=== PATIENT | female | born 1985 | race Caucasian/White ===

== ENCOUNTER → 2019-12-24 09:33 | Outpatient (CLI) | payer OTHER, SELFPAY ==
--- NOTE | 2019-12-24 09:40 | XR_ITS ---
PROCEDURE: XR ELBOW RT MIN 3V CLINICAL INDICATION: ganglion cyst right elbow COMPARISON: No exams were available for comparison FINDINGS: No fracture or dislocation. No lytic or blastic change. There is normal mineralization. The joint spaces are well-preserved. No significant degenerative/arthritic changes. No erosive changes evident. Other findings:There is a small round ossification adjacent to the tip of the olecranon process near the insertion of the triceps tendon measuring approximately 7 8 mm in diameter. The supracondylar humerus appears normal. The olecranon fossa is grossly normal and the radial head is intact. IMPRESSION: Round ossification or calcification adjacent to the olecranon process of the ulna possibly posttraumatic or possibly secondary to a calcified ganglion cyst, otherwise essentially unremarkable right elbow Dictated by: Dr. Zach Torres MD 12/24/2019 09:[address] Zach Torres MD in [place] 12/24/2019 09:56
== END ==
PROVIDERS: PCP Physician Assistant; Visit Provider Physician Assistant
DX: M67.421 Ganglion, right elbow (principal)
CPT/HCPCS: 73080

== ENCOUNTER → 2020-01-13 14:09 | Outpatient (CLI) | payer OTHER, SELFPAY ==
[2020-01-13 18:47] LABS: Coronavirus 19 IgG Antibody Negative (Negative); Coronavirus 19 IgM Antibody Negative (Negative)
== END ==
PROVIDERS: Visit Provider Orthopaedic Surgery
DX: Z01.818 Encounter for other preprocedural examination (principal); R22.31 Localized swelling, mass and lump, right upper limb
CPT/HCPCS: 36415; 86328

== ENCOUNTER 2020-01-14 11:53 | Day surgery (SDC) | payer OTHER, SELFPAY ==
[2020-01-13 15:24] VITALS: BMI 28.8
[2020-01-14 12:10] VITALS: BP 110/63; PULSE 84; RESP 18; TEMP 36.4; O2SAT 98
--- NOTE | 2020-01-14 12:43 | HMH.ANESCL ---
[facility] Anesthesia Checklist - Patient Identification Patient Identification: Arm Band - Structural Data Admitted From: Home Planned Operative Procedure/s: excision of mass right elbow Consent for Planned Operative Procedure(s) Verified: Yes Verified Documents: Surgical Consent, History and Physical - NPO Status Verified Time NPO: 00:00 - Additional verifications Anesthesia Reactions: No Hx Blood Transfusions: No Blood Transfusion Reaction: No - Airway Assessment C-Spine Mobility Assessed: Yes (mp2) TMJ Mobility Assessed: Yes Dentition: Good Dentition - Neurological Assessment Level of Consciousness: Awake, Alert - Anesthesia Plan Anesthesia Risk discussed: Yes Anesthesia Plan: Verified ASA Class: II Anesthesia Type: MAC [facility] History I have reviewed the patient's past medical history: Yes Medical History: Reports:: Anxiety, Depression, Gastroesophageal Reflux Disease(GERD), Migraine Denies:: Cancer, Diabetes Mellitus Type 1, Diabetes Mellitus Type 2, Internal Pacemaker, MRSA, Seizures *Have you ever received a pneumonia vaccine?: No *Have you received a flu vaccine this season?: Yes Other Medical History: Reports: Other. Denies: Blood Transfusion Reaction Anesthesia experience/problems:: nac Other Surgeries: Yes: Cholecystectomy, Dilation and Curettage, Hysterectomy-Total. No: Pacemaker Amputation: No Fractures: Yes (ARM) - *Social History Educational Level: Completed High School Smoking Status: Current every day smoker Tobacco Type: cigarettes # Packs/Day (cigarettes): 1 Alcohol Intake: never Alcohol Intake Frequency:: other Substance Use Type: denies use *Occupational Status:: employed Housing: house Household Members: spouse, children *Travel in the last 8 weeks: None - Psychiatric History Pschychiatric History:: Reports:: Anxiety, Depression Family Hx:: No significant family history
[2020-01-14 15:04] VITALS: BP 95/58; PULSE 75; RESP 18; TEMP 36.5; O2SAT 95
[2020-01-14 15:19] VITALS: BP 110/65; PULSE 85; RESP 18; O2SAT 100
[2020-01-14 15:34] VITALS: BP 100/65; PULSE 75; RESP 18; O2SAT 100
[2020-01-14 15:48] VITALS: BP 104/56; PULSE 83; RESP 18; O2SAT 100
--- NOTE | 2020-01-15 12:48 | HMH.OPNOTE ---
Date of procedure: 01/14/20 Pre-op Diagnosis:: R elbow mass Post-op Diagnosis:: R elbow mass Procedure performed:: excision of R elbow mass Surgeon:: Kinga Lindsay MD Communicable Disease Specialist(s):: Nory Soto PRODUCTION MATERIAL HANDLER:: Rik Fortune Anesthesia: MAC (6cc local at incision site), local Estimated blood loss (mL): 2 Clinical Note:: 34 year-old right hand dominant female with a chief complaint of a painful mass over the right elbow. She fractured this elbow when she was 8 years old and recalls being treated first with a closed reduction, followed by pinning of the fracture. She went on to heal the fracture and denies any issues with the elbow since. Around 5-6 weeks ago she bumped that elbow on something, which was painful. When she looked closely at the elbow she noticed a mass she hadn't seen before over the lateral aspect of the elbow. Whether hitting the elbow caused the mass or simply called her attention to it for the first time is unknown. The mass is small but firm, located over the posterolateral aspect of the elbow, adjacent to a scar from her previous elbow fracture surgery; it is superficial. She denies redness or warmth around the mass, no drainage from that site. No numbness or tingling in the RUE. She denies any baseline medical issues other than GERD, which is controlled with lansoprazole. NSAIDs have caused stomach pain/bleeding so she tries to avoid them. She is a smoker, BMI 28. I attempted to aspirate the cyst in clinic using sterile technique and a sterile 22G needle; the mass was firm and unable to be penetrated. I discussed further treatment options with the patient, who vocalized a desire to have the mass removed. It is painful and she frequently bumps it on things. The mass is very superficial and there are no neurologic symptoms indicating nerve involvement. I discussed the risks of surgical excision of the mass with the patient, including bleeding, infection, neurovascular damage, risk of mass reoccurrence, persistent pain despite mass excision, and risk of further treatment necessary should the mass wood turner to be malignant. I plan on sending the mass for pathology to confirm its origin. The patient vocalized understanding of the above risks and provided informed consent for the procedure. Operative findings:: mass ~3mm in diameter, superficial in location firm, calcified-appearing gross appearance consistent with calcified ganglion cyst; sent for path Operative note:: The patient was identified in pre-operative holding and the right elbow marked by myself. Consent was reviewed by myself and all questions answered. She was then taken to the OR and placed supine on the OR table with the right arm on a hand table. 900mg clindamycin were infused and IV sedation given by anesthesia. SCDs were placed on bilateral lower extremities. Timeout was performed, identifying the correct patient, correct procedure, and correct site. Local anesthesia was administered at the surgical site; the mass was located over the posterolateral elbow and local infiltrated subcutaneously around the mass. This was a 50/50 mix of 0.5% marcaine and 1% lidocaine, both without epinephrine; 6cc was used. The right elbow was then prepped and draped in the usual sterile fashion. The mass was located at the site of her prior pin placement for her elbow fracture as a child. Her previous scar was used, and a small incision made over the posterior lateral aspect of the elbow, approximately 1 cm in length, using her prior incision. Once incision was made, tenotomy scissors were used to bluntly spread the skin and the superficial subcutaneous tissue. The mass was encountered immediately superficial to the skin. Using blunt spreading with tenotomy scissors, the mass was dissected free of the surrounding subcutaneous tissue and removed in its entirety. It was around 3 mm in diameter and very firm, with a gross appearance of a calcified ganglion cyst. No other masses were palpated in this gita
== END 2020-01-14 15:48 | disposition home or self-care (01) ==
LOC: OR 11:54
PROVIDERS: PCP Physician Assistant; Visit Provider Orthopaedic Surgery
PROC: (CPT 11400; principal; 2020-01-14 13:30)
DX: R22.31 Localized swelling, mass and lump, right upper limb (principal); M25.521 Pain in right elbow
CPT/HCPCS: 11400; 96374

== ENCOUNTER 2020-06-14 17:39 | Observation (INO) | payer OTHER, SELFPAY ==
[2020-06-14] VITALS (9 sets, daily range): BP systolic 102–120; BP diastolic 55–76; PULSE 64–84; RESP 16–18; TEMP 36.1–37.1; O2SAT 95–99; BMI 28.8; BMI 28.1
--- NOTE | 2020-06-14 17:56 | CT_ITS ---
PROCEDURE: CT ABDOMEN PELVIS W CON CLINICAL INDICATION: abd pain Acute abdominal pain with diarrhea and vomiting and nausea COMPARISON: CT ABDPELW/O CT ABD PELVIS W/O CONTRAST from 10/06/2012 TECHNIQUE: IV Contrast: 75ML Isovue 370 Oral Contrast None Axial images obtained with sagittal and coronal reformats. All CT scans at the facility use one or more dose reduction, viz: automated exposure control, ma/kV adjustment per patient size (including targeted exams where dose is matched to indication, i.e. head), or iterative reconstruction technique. FINDINGS: LOWER THORAX: No acute finding ABDOMEN & PELVIS: Prior cholecystectomy. The liver, spleen, adrenal glands, pancreas, and kidneys have an unremarkable appearance. There is diffuse dey colonic thickening. Small bowel gas pattern is nonspecific with some fluid-filled nondistended loops of small bowel. No free air is evident. No pneumatosis apparent. No evidence of appendicitis. No pelvic mass or abnormal fluid collection. There are post hysterectomy changes. Degenerative changes are present in the lower thoracic spine with mild kyphosis of T10 and T11. There is anterior angulation of the coccyx. IMPRESSION: Diffuse large bowel wall thickening throughout consistent with colitis and may be related to pseudomembranous colitis. Dictated by: Landon Antonio MD 06/15/2020 05:57 Landon Antonio MD in [place] 06/15/2020 05:57
--- NOTE | 2020-06-14 18:02 | HMH.EDGENADL ---
ED Disposition Clinical Impression: Pseudomembranous colitis Disposition: Admitted as Observation Condition on Discharge: Fair Referrals: Larry Anderson MD [Primary Care Provider] - - Critical Care Critical Care Time: No Attestation: On 06/14/20, the high probability of a clinically significant, sudden or life threatening deterioration of the following system(s) required my full and direct attention, intervention and personal management. The time I documented below is in addition to time spent performing reported procedures but includes the following listed in this critical care notation. Medical Decision Making - Medical Records Medical records reviewed: Yes: I reviewed the patient's medical records. - [place] Inquiry Pt receiving controlled substance: Yes [place] was queried for this patient: Yes Reference #:: [id number] Risks and benefits of using a controlled substance: were not discussed with pt by me Comment: 2 rxs. last rx 20 norco on 01/14/20 Vital Signs: 06/14/20 17:52 06/14/20 20:05 Temperature 98.8 F Temperature Source Oral Pulse Rate [Right Radial] 84 71 Respiratory Rate 17 18 Blood Pressure [Right Arm] 114/70 102/55 L Blood Pressure Mean [Right Arm] 84 70 02 Sat by Pulse Oximetry 99 95 Oxygen Delivery Method Room Air - Lab Data Lab results reviewed: Yes: I reviewed the patient's lab results. Lab Results 06/14/20 18:00: Urine Color Yellow, Urine Appearance Clear, Urine pH 5.5, Ur Specific [place] 1.025, Urine Protein Negative, Urine Glucose (UA) Negative, Urine Ketones Negative, Urine Blood 3+, Urine Nitrate Negative, Urine Bilirubin Negative, Urine Urobilinogen 0.2, Ur Leukocyte Esterase Negative, Urine RBC 5-10 06/14/20 18:00: WBC 14.2 H, RBC 4.98, Hgb 15.3, Hct 46.0, MCV 92.3, MCH 30.8, MCHC 33.3, RDW 13.7, Plt Count 263, MPV 6.8 L, Neut % (Auto) 84.3 H, Lymph % (Auto) 10.6, [place] % (Auto) 3.6, Eos % (Auto) 1.3, Baso % (Auto) 0.3, Neut # (Auto) 12.0 H, Lymph # (Auto) 1.5, [place] # (Auto) 0.5, Eos # (Auto) 0.2, Baso # (Auto) 0.0 06/14/20 18:00: Sodium 137, Potassium 3.3 L, Chloride 106, Carbon Dioxide 23, Anion Gap 11.3, BUN 5 L, Creatinine 0.60, Estimated Creat Clear 174, Estimated GFR 114, Est GFR ( Amer) 138, Glucose 101 H, Calcium 8.9, Total Bilirubin 0.4, AST 21, ALT 14, Alkaline Phosphatase 64, Total Protein 6.7, Albumin 4.0, Globulin 2.7, Albumin/Globulin Ratio 1.5, Amylase 51, Lipase 26 06/14/20 19:10: Lactate 0.7 Result diagrams: 06/14/20 18:00 06/14/20 18:00 Orders (Tests/Meds): ED MEDICATIONS Generic Name Dose Route Start Last Admin Trade Name Freq PRN Reason Stop Dose Admin Vancomycin HCl 125 mg 06/14/20 21:00 Vancomycin 500mg Vial PO 06/28/20 20:59 QID CHERYL Protocol Discontinued Medications Generic Name Dose Route Start Last Admin Trade Name Freq PRN Reason Stop Dose Admin Ioversol 75 ml 06/14/20 18:17 06/14/20 18:18 Ioversol-350 (74%) 100ml Vial IV 06/14/20 18:18 75 ml ONCE ONE Administration Protocol Morphine Sulfate 4 mg 06/14/20 19:04 06/14/20 19:10 Morphine 4mg/Ml Syringe IV 06/14/20 19:05 4 mg ONCE ONE Administration Ondansetron HCl 4 mg 06/14/20 19:04 06/14/20 19:11 Ondansetron 4mg/5ml Alicia Udc PO 06/14/20 19:05 Not Given ONCE ONE Ondansetron HCl 4 mg 06/14/20 19:11 06/14/20 19:11 Ondansetron 4mg/2ml Vial IV 06/14/20 19:12 4 mg ONCE ONE Administration Sodium Chloride 10 ml 06/14/20 18:17 06/14/20 18:18 Sodium Chloride 0.9% 10ml Syr (Rad Only) IV 06/14/20 18:18 10 ml ONCE ONE Administration Sodium Chloride 1,000 ml 06/14/20 19:04 06/14/20 19:10 Sodium Chloride 0.9% 1000ml Bag IV 06/14/20 19:05 1,000 ml BOLUS ONE Administration ORDERS Category Date Time Status CT abdomen pelvis w con Stat Cat Scan 06/14/20 17:56 Taken C-Reactive Protein Stat Lab 06/14/20 20:08 Ordered Diarrhea 6-11 Panel, Cdiff PCR Stat Lab 06/14/20 19:10 Received ESR [Erythrocyte
[2020-06-14 18:07] LABS: Microscopic, Urine URINE MICROSCOPIC (MICROSCOPIC)
[2020-06-14 18:09] LABS: Appearance,Urine CLEAR (Clear); Basophils % 0.3 % (0.1-2.0); Bilirubin,Urine Negative (Negative); Blood, Urine 3+ (Negative); Color,Urine YELLOW (Yellow); Eosinophils # 0.2 K/mm3 (0.0-0.4); Eosinophils % 1.3 % (0.1-12.0); Glucose,Urine (UA) Negative (Negative); Hemoglobin 15.3 g/dL (12.2-16.2); Ketones,Urine Negative (Negative); Leukocyte Esterase,Urine Negative (Negative); Lymphocytes # 1.5 K/mm3 (0.7-4.5); Lymphocytes % 10.6 % (10-50); Mean Corpuscular HGB Conc 33.3 g/dL (31.8-35.4); Mean Corpuscular Hemoglobin 30.8 pg (27.0-31.2); Mean Corpuscular Volume 92.3 fl (81-99); Mean Platelet Volume 6.8 fl (7.4-10.4); Monocytes # 0.5 K/mm3 (0.1-1.0); Monocytes % 3.6 % (1.7-9.3); Neutrophils % 84.3 % (37.0-80.0); Nitrate,Urine Negative (Negative); PH,Urine 5.5 (5.0-8.5); Platelet Count 263 K/mm3 (142-424); Protein,Urine Negative (Negative); Red Blood Count 4.98 M/mm3 (4.20-5.40); Red Cell Distribution Width 13.7 % (11.5-17.5); Specific Gravity, Urine 1.025 (1.005-1.030); Urobilinogen,Urine 0.2 EU/dl (0.2); White Blood Count 14.2 K/mm3 (4.8-10.8)
[2020-06-14 18:18] LABS: Alanine Aminotransferase 14 U/L (12-78); Albumin/Globulin Ratio 1.5 (1.1-1.8); Alkaline Phosphatase 64 U/L (38-126); Amylase 51 U/L (30-110); Anion Gap 11.3 mEq/L (5-15); Aspartate Amino Transferase 21 U/L (14-36); Bilirubin,Total 0.4 mg/dl (0.2-1.3); Blood Urea Nitrogen 5 mg/dl (7-17); Calcium 8.9 mg/dl (8.4-10.2); Carbon Dioxide 23 mmol/L (22.0-30.0); Chloride 106 mmol/L (98-107); Creatinine Clearance Estimated 174 mL/min (50-200); Estimated Glomerular Filt Rate 114 ml/min (>60); GFR (African American) 138 ML/MIN (>60); Globulin 2.7 g/dL (1.3-3.2); Glucose 101 mg/dl (74-100); Lipase 26 U/L (23-300); Potassium 3.3 mmoL/L (3.5-5.1); Sodium 137 mmol/L (136-145); Total Protein,Serum 6.7 g/dl (6.3-8.2)
--- NOTE | 2020-06-14 19:19 | PC.NURSE ---
informed md we do not have access to the oral vanc on the floor.
[2020-06-14 19:21] LABS: Adenovirus F 40/41, stool Not Detected (NotDetected); Astrovirus Not Detected (NotDetected); Cryptosporidium Not Detected (NotDetected); Cyclospora Cayetanesis Not Detected (NotDetected); Entamoeba histolytica Not Detected (NotDetected); Enteroaggregative E coli Not Detected (NotDetected); Enteropathogenic E coli Not Detected (NotDetected); Enterotoxigenic E coli Not Detected (NotDetected); Giardia lamblia Not Detected (NotDetected); Norovirus Not Detected (NotDetected); Plesimonas Shigalloides, PCR Not Detected (NotDetected); Rotavirus A Not Detected (NotDetected); Salmonella, PCR Not Detected (NotDetected); Sapovirus Not Detected (NotDetected); Shiga-like toxin E coli Not Detected (NotDetected); Shigella Enterovasive E coli Not Detected (NotDetected); Vibrio Cholerae Not Detected (NotDetected); Vibrio, PCR Not Detected (NotDetected); Yersinia Entercolitica, PCR Not Detected (NotDetected)
[2020-06-14 19:23] LABS: Lactic Acid 0.7 mmol/L (0.7-2.1)
--- NOTE | 2020-06-14 20:56 | HMH.HP ---
*Admission Date: 06/14/20 *Chief complaint: abd pain *History of present illness: this pt with severe crampy abd pain alfonso diarrhea for 4 days with colicky abdominal pain. One episode of vomiting today. No fever noted. She has some blood in her diarrhea, but says blood in her stool is not unusual for her because she has hemorrhoids and the amount of bleeding that she is having is about typical for her. No recent travel, antibiotics, exposures to diarrhea illnesses. 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 pt will be admitted for eval and treatment [facility] History I have reviewed the patient's past medical history: Yes Medical History: Reports:: Anxiety, Depression, Gastroesophageal Reflux Disease(GERD), Migraine Denies:: Cancer, Diabetes Mellitus Type 1, Diabetes Mellitus Type 2, Internal Pacemaker, MRSA, Seizures *Have you ever received a pneumonia vaccine?: No *Have you received a flu vaccine this season?: No Other Medical History: Reports: Other. Denies: Blood Transfusion Reaction Other Surgeries: Yes: Cholecystectomy, Dilation and Curettage, Hysterectomy-Total. No: Pacemaker Amputation: No Fractures: Yes (ARM) - *Social History Smoking Status: Current every day smoker Tobacco Type: cigarettes # Packs/Day (cigarettes): 1 Alcohol Intake: never Alcohol Intake Frequency:: other Substance Use Type: marijuana *Occupational Status:: employed Housing: house Household Members: spouse, children *Travel in the last 8 weeks: None - Psychiatric History Pschychiatric History:: Reports:: Anxiety, Depression Family Hx:: No significant family history Review of Systems - Review of Systems Review of systems:: pertinent systems reviewed and negative unless documented below - Constitutional Denies fever(s) - Eyes Denies change in vision - ENT Denies sore throat - *Cardiovascular Denies chest pain - *Respiratory Denies cough - *Gastrointestinal Reports abdominal pain, Reports cramping, Reports loose stools, Denies black, tarry stools, Denies vomiting - *Genitourinary Denies blood in urine - *Musculoskeletal Denies joint pain - Integumentary/Breasts Denies rash - *Neurologic Denies localized weakness, Denies seizure-like activity - Psychiatric Denies anxiety Meds Home Medications Medication Instructions Recorded Confirmed Type lansoprazole 30 mg capsule,delayed 30 mg PO DAILY #90 cap 03/31/20 06/14/20 Rx release Allergies Allergy/AdvReac Type Severity Reaction Status Date / Time ibuprofen [IBUPROFEN] Allergy Unknown STOMACH Verified 06/14/20 17:56 UPSET naproxen [NAPROXEN] Allergy Unknown STOMACH Verified 06/14/20 17:56 UPSET ADHESIVES Allergy Unknown I-RASH Uncoded 05/28/20 13:26 Exam Vital signs and Labs for Last 24 Hours: Temp Pulse Resp BP Pulse Ox 98.8 F 71 18 102/55 L 95 06/14/20 17:52 06/14/20 20:05 06/14/20 20:05 06/14/20 20:05 06/14/20 20:05 Laboratory Results - last 24 hr 06/14/20 18:00: Urine Color Yellow, Urine Appearance Clear, Urine pH 5.5, Ur Specific [place] 1.025, Urine Protein Negative, Urine Glucose (UA) Negative, Urine Ketones Negative, Urine Blood 3+, Urine Nitrate Negative, Urine Bilirubin Negative, Urine Urobilinogen 0.2, Ur Leukocyte Esterase Negative, Urine RBC 5-10 06/14/20 18:00: WBC 14.2 H, RBC 4.98, Hgb 15.3, Hct 46.0, MCV 92.3, MCH 30.8, MCHC 33.3, RDW 13.7, Plt Count 263, MPV 6.8 L, Neut % (Auto) 84.3 H, Lymph % (Auto) 10.6, [place] % (Auto) 3.6, Eos % (Auto) 1.3, Baso % (Auto) 0.3, Neut # (Auto) 12.0 H, Lymph # (Auto) 1.5, [place] # (Auto) 0.5, Eos # (Auto) 0.2, Baso # (Auto) 0.0 06/14/20 18:00: Sodium 137, Potassium 3.3 L, Chloride 106, Carbon Dioxide 23, Anion Gap 11.3, BUN 5 L, Creatinine 0.60, Estimated Creat Clear 174, Estimated GFR 114, Est GFR ( Amer) 138, Glucose 101 H, Calcium 8.9, Total Bilirubin 0.4, AST 21, ALT 14, Alkaline Phosphatase 64, T
[2020-06-14 21:03] LABS: C-Reactive Protein 19.9 mg/L (0-4)
[2020-06-14 21:11] LABS: Erythrocyte Sedimentation Rate 17 mm/hr (0-20)
[2020-06-14 21:17] LABS: Procalcitonin 0.042 ng/mL (0.0-2.0)
--- NOTE | 2020-06-14 21:17 | PC.NURSE ---
checking on covid igg/igm; earl reports additonal 7-8 mins
[2020-06-14 21:26] LABS: Coronavirus 19 IgG Antibody Negative (Negative); Coronavirus 19 IgM Antibody Negative (Negative)
--- NOTE | 2020-06-14 21:53 | PC.NURSE ---
PT ARRIVED TO THE FLOOR VIA W/C FROM ED W/STAFF AT [id number]
[2020-06-15 03:05] VITALS: BP 103/56; PULSE 53; RESP 16; TEMP 36.8; O2SAT 97
--- NOTE | 2020-06-15 05:46 | PC.NURSE ---
Pt a&OX4 lungs cta. pt c/o abd pain medicated per OCT. pt ambulates to BR independently
--- NOTE | 2020-06-15 07:23 | PC.NURSE ---
notified pre op of Dr. Gonzales consult.
--- NOTE | 2020-06-15 07:30 | HMH.PHAVTE ---
[facility] Pharmacy VTE Monitoring - Patient Demographics Admission date: 06/14/20 Report Date: 06/15/20 Time: 07:31 Allergies/Adverse Reactions: Patient Allergies ibuprofen [IBUPROFEN] Allergy (Unknown, Verified 06/14/20 17:56) STOMACH UPSET naproxen [NAPROXEN] Allergy (Unknown, Verified 06/14/20 17:56) STOMACH UPSET ADHESIVES Allergy (Unknown, Uncoded 05/28/20 13:26) I-RASH Height: 1.7 m Weight: 81.647 kg Patient Problems: Current Active Problems Pseudomembranous colitis (Acute) Overweight (BMI 25.0-29.9) (Acute) Tobacco use (Acute) - VTE Risk Labs: VTE Related Lab Results Hgb 15.3 g/dL (12.2-16.2) 06/14/20 18:00 Hct 46.0 % (37.0-47.0) 06/14/20 18:00 Plt Count 263 K/mm3 (142-424) 06/14/20 18:00 BUN 5 mg/dl (7-17) L 06/14/20 18:00 Creatinine 0.60 mg/dl (0.52-1.04) 06/14/20 18:00 Estimated Creat Clear 174 mL/min (50-200) 06/14/20 18:00 Was VTE Risk Assessment Performed: Yes VTE Score: 0 VTE Risk Level: Very Low Risk - Prophylaxis VTE Prophylaxis Ordered?: Yes Types of VTE Prophylaxis: TEDS Knee High Location of Applied Device: Bilateral Lower Extremeties
[2020-06-15 07:42] VITALS: BP 111/68; PULSE 54; RESP 20; TEMP 36.8; O2SAT 96
[2020-06-15 08:00] VITALS: PULSE 54; RESP 20; O2SAT 96
--- NOTE | 2020-06-15 08:24 | HMH.PHAINT ---
MEDICATION RECONCILIATION COMPLETED ON PATIENT USING EXTERNAL FILL HISTORY FROM PHARMACY. -NORBERTO GARCIA, LUIS MD
[2020-06-15 15:41] VITALS: BP 133/71; PULSE 60; RESP 18; TEMP 36.7; O2SAT 99
--- NOTE | 2020-06-15 16:05 | HMH.CONS ---
*Admission Date: 06/14/20 *Reason for consult:: colitis *History of present illness: This is a 34-year-old female who presented to the ER after 5 days of diarrhea and 3 days of abdominal pain with nausea x1 day. She reports that yesterday she had 11 episodes of watery mushy stool throughout the day. Upon arrival in the ER her white blood cell count was elevated at 14.2 with a normal amylase lipase and normal LFTs. She did have an elevated CRP at 19.9. CT scan showed diffuse large bowel wall thickening throughout consistent with colitis likely pseudomembranous colitis. Patient was started on Flagyl, p.o. vancomycin, and IV fluids in the ER. At the time of this consult we are still awaiting results of stool panel and C. difficile results. The patient denies having any antibiotics in the past 6 months. She denies any history of immune compromise. 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 She does have some rectal bleeding but she reports that she has rectal bleeding every day with an history of internal hemorrhoids and the consistency color and quantity have not changed. She denies any alcohol or NSAID use. Her last colonoscopy was for rectal bleeding about 8 years ago along with an EGD at [facility]. She denies any abnormalities but for trouble with her lower esophageal sphincter of unknown etiology. Patient denies any family history of colon cancer, stomach cancer or other GI cancers. She denies any history of inflammatory bowel disease or celiac disease in her family. Patient is mildly tender to palpation right lower quadrant today. She reports it was left lower quadrant yesterday. She is afebrile and reports some nausea but one episode of vomiting. She reports she has had no p.o. intake for about 48 hours due to her symptoms. [facility] History I have reviewed the patient's past medical history: Yes Medical History: Reports:: Anxiety, Depression, Gastroesophageal Reflux Disease(GERD), Migraine Denies:: Cancer, Diabetes Mellitus Type 1, Diabetes Mellitus Type 2, Internal Pacemaker, MRSA, Seizures *Have you ever received a pneumonia vaccine?: No *Have you received a flu vaccine this season?: No Other Medical History: Reports: Other. Denies: Blood Transfusion Reaction Other Surgeries: Yes: Cholecystectomy, Dilation and Curettage, Diagnostic Lap, Hysterectomy-Total, Hysterectomy-Partial. No: Pacemaker Amputation: No Fractures: Yes (ARM) - *Social History Last grade of school completed: High school graduate Smoking Status: Current every day smoker Tobacco Type: cigarettes # Packs/Day (cigarettes): 1 Alcohol Intake: never Alcohol Intake Frequency:: other Substance Use Type: marijuana *Occupational Status:: employed Housing: house Household Members: spouse *Travel in the last 8 weeks: None - Psychiatric History Pschychiatric History:: Reports:: Anxiety, Depression Family Hx:: Diabetes, Heart Attack, Hyperlipidemia, Hypertension Review of Systems - Constitutional Reports anorexia, Denies body ache(s), Denies chills, Denies fever(s), Denies weakness - Eyes Denies blurry vision, Denies change in vision - ENT Denies dry mouth, Denies difficulty swallowing, Denies headache(s), Denies hoarseness, Denies pain with swallowing, Denies throat swelling - *Cardiovascular Denies chest pain, Denies shortness of breath, Denies generalized swelling - *Respiratory Denies chest congestion, Denies cough, Denies shortness of breath, Denies stridor, Denies wheezing - *Gastrointestinal Reports abdominal pain, Reports change in bowel habits, Reports loose stools, Reports bright, red blood in stools, Reports nausea, Reports vomiting, Denies belching, Denies bloating, Denies coffee ground vomit, Denies constipation, Denies difficulty swallowing, Denies incontinent of stools - *Musculoskeletal Denies joint pain, Denies back pain, Denies muscle weakness, Denies numbness, Denies tinglin
--- NOTE | 2020-06-15 17:13 | PC.NURSE ---
Pt has been pleasant and cooperative this shift. A&O X4. Pt has complained of pain X2 and has been medicated with Morphine per MAR. Lungs CTA. Pt is on room air with sats. >90%. No edema noted. Skin is C/D/I. Pt ambulates to/from the bathroom and throughout the room independently. No nausea/vomiting this shift. Pt is currently receiving full liquids and is tolerating well thus far. Pt uses the toilet to void clear, yellow urine without issue. Pt reports 2 small episodes of loose, brown stool. Awaiting diarrhea panel results. 20 G peripheral IV in the LT wrist DC'd this shift due to infiltration. 20 G peripheral IV in the RT AC is patent and infusing NS @ 100 ML/HR. VSS. Call light within reach. Will continue to monitor.
--- NOTE | 2020-06-15 17:23 | HMH.ACPN2 ---
Internal Medicine - PN: Subj *Date: 06/15/20 *Time: 08:10 Interval history: pt sitting up in bed states slight better but still having pain Exam Vital signs and Labs for Last 24 Hours: Temp Pulse Resp BP Pulse Ox 98.1 F 60 18 133/71 99 06/15/20 15:41 06/15/20 15:41 06/15/20 15:41 06/15/20 15:41 06/15/20 15:41 Laboratory Results - last 24 hr 06/14/20 18:00: Urine Color Yellow, Urine Appearance Clear, Urine pH 5.5, Ur Specific [place] 1.025, Urine Protein Negative, Urine Glucose (UA) Negative, Urine Ketones Negative, Urine Blood 3+, Urine Nitrate Negative, Urine Bilirubin Negative, Urine Urobilinogen 0.2, Ur Leukocyte Esterase Negative, Urine RBC 5-10 06/14/20 18:00: WBC 14.2 H, RBC 4.98, Hgb 15.3, Hct 46.0, MCV 92.3, MCH 30.8, MCHC 33.3, RDW 13.7, Plt Count 263, MPV 6.8 L, Neut % (Auto) 84.3 H, Lymph % (Auto) 10.6, [place] % (Auto) 3.6, Eos % (Auto) 1.3, Baso % (Auto) 0.3, Neut # (Auto) 12.0 H, Lymph # (Auto) 1.5, [place] # (Auto) 0.5, Eos # (Auto) 0.2, Baso # (Auto) 0.0 06/14/20 18:00: Sodium 137, Potassium 3.3 L, Chloride 106, Carbon Dioxide 23, Anion Gap 11.3, BUN 5 L, Creatinine 0.60, Estimated Creat Clear 174, Estimated GFR 114, Est GFR ( Amer) 138, Glucose 101 H, Calcium 8.9, Total Bilirubin 0.4, AST 21, ALT 14, Alkaline Phosphatase 64, Total Protein 6.7, Albumin 4.0, Globulin 2.7, Albumin/Globulin Ratio 1.5, Amylase 51, Lipase 26 06/14/20 18:00: ESR 17 06/14/20 18:00: C-Reactive Protein 19.9 H 06/14/20 18:00: Procalcitonin 0.042 06/14/20 18:00: SARS-CoV-2 IgG Ab (Rapid) Negative, SARS-CoV-2 IgM Ab (Rapid) Negative 06/14/20 19:10: Lactate 0.7 I & O for Last 24 hours: Intake & Output 06/13/20 06/14/20 06/15/20 06/16/20 11:59 11:59 11:59 11:59 Intake Total 2051 480 / 480 Balance 2051 480 / 480 Weight 180 lb - Constitutional no acute distress - *Routine HEENT Exam Head: Present: normocephalic Eye: Present: PERRL ENT: Present: mucous membranes moist - *Routine Neck Exam Present: supple. Absent: lymphadenopathy - *Routine Respiratory Exam Present: CTA bilaterally - *Routine Cardiovascular Exam Present: RRR - *Routine Abdominal Exam Present: soft, normoactive bowel sounds, tenderness - *Routine Extremities Exam Present: normal capillary refill. Absent: cyanosis, clubbing, edema - *Routine Skin Exam Present: warm. Absent: rash - *Routine Neurological Exam Present: alert, oriented X3 - Routine Psychiatric Exam Present: normal affect Assessment and Plan (1) Overweight (BMI 25.0-29.9) Status: Acute Category: Medical Code(s): E66.3 - Overweight (2) Pseudomembranous colitis Status: Acute Category: Medical Code(s): A04.72 - Enterocolitis due to Clostridium difficile, not specified as recurrent (3) Tobacco use Status: Acute Category: Social Hx Code(s): Z72.0 - Tobacco use - Assessment and plan all Dx Assessment and Plan for all problems:: rounded with dr gaspar all orders per dr gaspar gi consult
[2020-06-15 19:40] VITALS: PULSE 63; RESP 16; O2SAT 99
[2020-06-15 19:51] VITALS: BP 114/71; PULSE 63; RESP 16; TEMP 37.2; O2SAT 99
[2020-06-16 03:50] VITALS: BP 109/57; PULSE 58; RESP 17; TEMP 36.7; O2SAT 98
[2020-06-16 05:09] VITALS: BMI 28.2
--- NOTE | 2020-06-16 06:37 | PC.NURSE ---
shift summary, no acute changes since prior assessment, has rested well t/o shift, complained of abdominal pain one time and was treated per OCT, no N/V/D, pt has ambulated to bathroom independently, lungs CTA, remains on room air with O2 sats 98-99%
[2020-06-16 06:43] LABS: Basophils # 0.1 K/mm3 (0-0.2); Basophils % 0.5 % (0.1-2.0); Eosinophils # 0.1 K/mm3 (0.0-0.4); Eosinophils % 1.2 % (0.1-12.0); Hematocrit 39.1 % (37.0-47.0); Hemoglobin 12.8 g/dL (12.2-16.2); Lymphocytes # 3.3 K/mm3 (0.7-4.5); Lymphocytes % 32.8 % (10-50); Mean Corpuscular HGB Conc 32.9 g/dL (31.8-35.4); Mean Corpuscular Hemoglobin 30.8 pg (27.0-31.2); Mean Corpuscular Volume 93.8 fl (81-99); Mean Platelet Volume 7.3 fl (7.4-10.4); Monocytes # 0.6 K/mm3 (0.1-1.0); Monocytes % 5.7 % (1.7-9.3); Neutrophils # 5.9 K/mm3 (1.8-7.8); Neutrophils % 59.7 % (37.0-80.0); Platelet Count 243 K/mm3 (142-424); Red Blood Count 4.16 M/mm3 (4.20-5.40); Red Cell Distribution Width 13.5 % (11.5-17.5); White Blood Count 9.9 K/mm3 (4.8-10.8)
[2020-06-16 06:47] LABS: Chloride 108 mmol/L (98-107)
[2020-06-16 06:48] LABS: Potassium 3.3 mmoL/L (3.5-5.1); Sodium 138 mmol/L (136-145)
[2020-06-16 06:50] LABS: Blood Urea Nitrogen 8 mg/dl (7-17); Creatinine Clearance Estimated 170 mL/min (50-200); Estimated Glomerular Filt Rate 114 ml/min (>60); GFR (African American) 138 ML/MIN (>60)
[2020-06-16 06:51] LABS: Anion Gap 6.3 mEq/L (5-15); Calcium 8.3 mg/dl (8.4-10.2); Carbon Dioxide 27 mmol/L (22.0-30.0); Glucose 96 mg/dl (74-100)
[2020-06-16 07:44] VITALS: BP 139/86; PULSE 61; RESP 17; TEMP 36.4; O2SAT 100
[2020-06-16 08:00] VITALS: O2SAT 98
--- NOTE | 2020-06-16 08:48 | HMH.DCSUM ---
General - General Admission date:: 06/14/20 Discharge date: 06/16/20 HPI HPI: this pt with severe crampy abd pain alfonso diarrhea for 4 days with colicky abdominal pain. One episode of vomiting today. No fever noted. She has some blood in her diarrhea, but says blood in her stool is not unusual for her because she has hemorrhoids and the amount of bleeding that she is having is about typical for her. No recent travel, antibiotics, exposures to diarrhea illnesses. 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 pt will be admitted for eval and treatment Hospital Course Hospital Course: 34-year-old female patient presents to the ER after 5 days of diarrhea, 3 days of abdominal pain, and 1 day of nausea. She reported that she did have greater than 10 episodes of watery loose stool throughout the day and her white blood cell count was 14.2, amylase and lipase and LFTs were all normal. She does report some rectal bleeding and a history of internal hemorrhoids. She does have right lower quadrant abdominal tenderness, denies fever/chills/body aches. In the emergency room she was started on Flagyl, vancomycin, and IV fluids GI has seen and Rec: White blood cell count mildly increased at 14.2 with an elevation of CRP at 19.9. Patient unable to hydrate her self appropriately and she has had no p.o. intake for 48 hours but is doing well on IV fluids. She was started on vancomycin and Flagyl in the ER and we are awaiting stool panel results and C. difficile results. After discussion with Dr. Gonzales, if for some reason stool panel and C. difficile are negative, the patient may need colonoscopy but may do okay as an outpatient. As she has already started the vancomycin and Flagyl I would continue it to treat preemptively. We will add as needed dicyclomine for the abdominal cramping see if it gives her some relief. If C. difficile is positive, upon discharge may benefit from a Florastor probiotic. We are happy to see her for follow-up in the office. 06/14/20 Abd/Pelvis CT: FINDINGS: LOWER THORAX: No acute finding ABDOMEN & PELVIS: Prior cholecystectomy. The liver, spleen, adrenal glands, pancreas, and kidneys have an unremarkable appearance. There is diffuse dey colonic thickening. Small bowel gas pattern is nonspecific with some fluid-filled nondistended loops of small bowel. No free air is evident. No pneumatosis apparent. No evidence of appendicitis. No pelvic mass or abnormal fluid collection. There are post hysterectomy changes. Degenerative changes are present in the lower thoracic spine with mild kyphosis of T10 and T11. There is anterior angulation of the coccyx. IMPRESSION: Diffuse large bowel wall thickening throughout consistent with colitis and may be related to pseudomembranous colitis. Dictated by: Paco, White blood cell count in emergency department 14.2, now down to 9.9. Renal within normal UA has been negative she has been tolerating a regular diet and fluids that she has been no more for the reports of loose bowel movements. Discussed discharge home today she is agreeable to this, she will call office Monday for C. difficile results as well is taking Flagyl on discharge as well as Bentyl p.o. follow-up with GI in 4 weeks follow-up with PCP in 2 weeks Objective Vital signs: Temp Pulse Resp BP Pulse Ox 97.6 F 61 17 139/86 98 06/16/20 07:44 06/16/20 07:44 06/16/20 07:44 06/16/20 07:44 06/16/20 08:00 no acute distress - *Routine HEENT Exam Head: Present: normocephalic ENT: Present: mucous membranes moist - *Routine Neck Exam Present: full ROM, trachea midline. Absent: tracheal deviation - *Routine Respiratory Exam Present: CTA bilaterally. Absent: accessory muscle use - *Routine Cardiovascular Exam Present: RRR - *Routine Abdominal Exam Present: soft, normoactive bowel sounds, tendernes
[2020-06-17 10:46] LABS: C difficile Toxins AB, EIA Negative (Negative)
[2020-06-18 11:55] LABS: Campylobacter Detected (NotDetected); Clostridium Difficile A/B, PCR Detected (NotDetected)
== END 2020-06-16 10:44 | disposition home or self-care (01) ==
LOC: ER 20:17 → 2ND 20:32
PROVIDERS: Emergency Medicine; Nurse Practitioner Family; Admitting Provider Emergency Medicine; Emergency Provider Emergency Medicine; PCP Emergency Medicine; Visit Provider Emergency Medicine
DX: A04.72 Enterocolitis due to Clostridium difficile, not specified as recurrent (principal); Z72.0 Tobacco use
CPT/HCPCS: 74177; 80048; 80053; 81001; 82150; 83605; 83690; 84145; 85025; 85651; 86140; 86328; 87040; 87077; 87324; 87506; 96365; 96367; 96375; 96376; 99285; G0378; J2405; J3370; Q9967

== ENCOUNTER 2022-08-29 10:57 | Emergency (ER) | payer OTHER, SELFPAY ==
[2022-08-29 11:45] VITALS: BP 137/68; PULSE 107; RESP 20; TEMP 36.7; O2SAT 99; BMI 32.5
--- NOTE | 2022-08-29 11:46 | EXP.UTC ---
Discharge Plan Disposition Patient Disposition: Home, Self-Care Condition: Good Prescriptions Prescriptions: New amoxicillin [amoxicillin] 500 mg tablet 500 mg PO TID 10 Days Qty: 30 0RF [id number]-[id number] [Bromfed DM] 2-30-10 mg/5 mL Syrup 5 ml PO Q6H PRN (Reason: Cough) Qty: 240 0RF methylprednisolone 4 mg Tablets,Dose Pack 4 mg PO DIRECTED Qty: 21 0RF No Action lansoprazole 30 mg capsule,delayed release(DR/EC) See Rx Instructions .ROUTE .COMPLEX Rx Instructions: TAKE ONE CAPSULE BY MOUTH ONCE A DAY FOR GERD Referrals Follow up/Referrals: Larry Anderson MD [Primary Care Provider] - See instructions Activity Restrictions/Add. Instructions Additional Instructions/Restrictions: Drink plenty of fluids. Take tylenol or ibuprofen for pain or fever. Take the medications as directed. Follow up with your regular doctor. GO TO THE ER FOR ANY WORSENING SYMPTOMS Clinical Impressions Clinical Impression: Pharyngitis, Torticollis Stand Alone Forms Stand Alone Forms: Work/School Release Instructions Patient Instructions: DI for Pharyngitis/Tonsillopharyngitis -- Adult, DI for Torticollis Discharge ED Provider: Ernesto Browning [facility] General Stated complaint: Sore throat,Congestion,neck pain no accident Time Seen by Provider: 08/29/22 11:46 History of Present Illness Provider Complaint: She states that for the past 2 days she has had sore throat, cough, sinus congestion and neck pain. She denies any injury to her neck. She denies fever/chills. Related Data Home Medications Medication Instructions Recorded Confirmed lansoprazole 30 mg capsule,delayed See Rx Instructions .Route 08/29/22 08/29/22 release .COMPLEX GERD Previous Rx's Medication Instructions Recorded amoxicillin 500 mg tablet 500 mg PO TID 10 days #30 tabs 08/29/22 esegxtvfclpnvwb-bwlswzmmqyqjqzp-TK 5 ml PO Q6H PRN Cough #240 mL 08/29/22 2 mg-30 mg-10 mg/5 mL oral syrup (Bromfed DM) methylprednisolone 4 mg tablets in 4 mg PO DIRECTED #21 tabs 08/29/22 a dose pack Allergies Allergy/AdvReac Type Severity Reaction Status Date / Time ibuprofen [IBUPROFEN] Allergy Unknown STOMACH Verified 08/29/22 11:55 UPSET naproxen [NAPROXEN] Allergy Unknown STOMACH Verified 08/29/22 11:55 UPSET ADHESIVES Allergy Unknown I-RASH Uncoded 07/08/22 13:03 [facility] Disclaimer: The information contained in this section may have been updated after the patient was seen, as this information can be updated by other users. 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 caffeine: Yes ROS Obtained: Yes All systems reviewed & no additional complaints except as documented Constitutional Constitutional: Denies chills and Denies fever(s) Eyes Eyes: Denies eye discharge ENT Ears, Nose, Mouth, and Throat: Reports as per HPI Cardiovascular Cardiovascular: Denies chest pain Respiratory Respiratory: Denies chest congestion and Reports cough Gastrointestinal Gastrointestingal: Reports nausea; Denies abdominal pain, constipation, cramping, diarrhea or vomiting Musculoskeletal Musculoskeletal: Denies arthralgias Integumentary/Breasts Skin/Breast: Denies rash Neurologic Neurologic: Denies paresthesias
[2022-08-29 11:57] LABS: UTC Strep Screen (Rapid) Negative (Negative)
[2022-08-29 12:54] VITALS: BP 137/68; PULSE 107; RESP 20; TEMP 36.7; O2SAT 99
== END 2022-08-29 12:53 | disposition home or self-care (01) ==
PROVIDERS: Emergency Provider Nurse Practitioner Family; PCP Emergency Medicine
DX: M43.6 Torticollis (principal); J02.9 Acute pharyngitis, unspecified
CPT/HCPCS: 87880; 99212; 99213; C9803; G0463; U0003; U0005

== ENCOUNTER → 2023-04-11 16:07 | Outpatient (CLI) | payer OTHER, SELFPAY ==
[2023-04-11 12:27] LABS: Basophils # 0.1 K/mm3 (0-0.2); Basophils % 0.5 % (0.1-2.0); Eosinophils # 0.1 K/mm3 (0.0-0.4); Eosinophils % 1.3 % (0.1-12.0); Hematocrit 45.2 % (37.0-47.0); Lymphocytes % 32.8 % (10-50); Mean Corpuscular HGB Conc 33.2 g/dL (31.8-35.4); Mean Corpuscular Hemoglobin 30.5 pg (27.0-31.2); Mean Corpuscular Volume 91.9 fl (81-99); Mean Platelet Volume 7.6 fl (7.4-10.4); Monocytes # 0.4 K/mm3 (0.1-1.0); Monocytes % 4.7 % (1.7-9.3); Neutrophils # 5.6 K/mm3 (1.8-7.8); Neutrophils % 60.7 % (37.0-80.0); Platelet Count 259 K/mm3 (142-424); Red Blood Count 4.92 M/mm3 (4.20-5.40); Red Cell Distribution Width 13.6 % (11.5-17.5); White Blood Count 9.1 K/mm3 (4.8-10.8)
[2023-04-11 12:51] LABS: Alanine Aminotransferase 18 U/L (12-78); Albumin Level 4.5 g/dl (3.5-5.0); Albumin/Globulin Ratio 1.7 (1.1-1.8); Alkaline Phosphatase 64 U/L (38-126); Aspartate Amino Transferase 20 U/L (14-36); Bilirubin,Total 0.6 mg/dl (0.2-1.3); Blood Urea Nitrogen 8 mg/dl (7-17); Calcium 9.6 mg/dl (8.4-10.2); Carbon Dioxide 20 mmol/L (22.0-30.0); Chloride 105 mmol/L (98-107); Chol/HDL Ratio 4.4 (1-3.5); Cholesterol 254 mg/dl (140-200); Estimated Glomerular Filt Rate 112 ml/min (>60); GFR (African American) 136 ML/MIN (>60); Globulin 2.6 g/dL (1.3-3.2); Glucose 84 mg/dl (74-100); HDL Cholesterol 58 mg/dl (40-60); Sodium 136 mmol/L (136-145); Total Protein,Serum 7.1 g/dl (6.3-8.2); Triglycerides 96 mg/dl (30-150); VLDL Cholesterol 19 mg/dL (0-40)
[2023-04-11 13:03] LABS: Direct LDL Cholesterol 147.91 mg/dL (100-129)
[2023-04-11 13:08] LABS: 25-OH Vitamin D, Total 28.4 ng/mL (30-100)
[2023-04-11 13:22] LABS: Thyroid Stimulating Hormone 0.94 uIU/mL (0.465-4.68)
== END ==
PROVIDERS: PCP Physician Assistant; Visit Provider Physician Assistant
DX: K21.9 Gastro-esophageal reflux disease without esophagitis (principal); E55.9 Vitamin D deficiency, unspecified; Z79.899 Other long term (current) drug therapy
CPT/HCPCS: 80053; 80061; 82306; 84443; 85025

== ENCOUNTER 2023-04-20 10:22 | Emergency (ER) | payer OTHER, SELFPAY ==
[2023-04-20 10:50] VITALS: BP 124/76; PULSE 65; RESP 18; TEMP 37.1; O2SAT 100; BMI 29.7
--- NOTE | 2023-04-20 10:55 | EXP.UTC ---
Discharge Plan Disposition Patient Disposition: Home, Self-Care Condition: Good Prescriptions Prescriptions: New methylprednisolone 4 mg Tablets,Dose Pack 4 mg PO DIRECTED Qty: 21 0RF cyclobenzaprine 10 mg Tablet 10 mg PO BID PRN (Reason: Muscle Spasm) Qty: 20 0RF No Action lansoprazole 30 mg capsule,delayed release(DR/EC) See Rx Instructions .ROUTE .COMPLEX Qty: 90 3RF Dose Instruction: TAKE ONE CAPSULE BY MOUTH ONCE A DAY FOR GERD Rx Instructions: TAKE ONE CAPSULE BY MOUTH ONCE A DAY FOR GERD ergocalciferol (vitamin D2) 1,250 mcg (50,000 unit) capsule 1,250 mcg PO WEEKLY Qty: 14 3RF cholecalciferol (vitamin D3) 50 mcg (2,000 unit) capsule 50 mcg PO DAILY Qty: 90 3RF atorvastatin 10 mg tablet 10 mg PO DAILY Qty: 90 3RF Referrals Follow up/Referrals: Yasmani Vargas DO [Staff Physician] - See instructions Larry Anderson MD [Primary Care Provider] - See instructions Activity Restrictions/Add. Instructions Additional Instructions/Restrictions: Rest the extremity. Take the medications as directed. The muscle relaxer (cyclobenzaprine--Flexeril) will make you drowsy, so don't drive or operate heavy machinery after taking it. Follow up with Dr. Vargas (orthopedics). I put in a referral but you need to call his office and schedule an appointment. Follow up with your regular doctor. GO TO THE ER FOR ANY WORSENING SYMPTOMS Clinical Impressions Clinical Impression: Left shoulder pain, Tendinopathy of left shoulder Stand Alone Forms Stand Alone Forms: Work/School Release Instructions Patient Instructions: Shoulder Tendinopathy, DI for Shoulder Pain Discharge ED Provider: Ernesto Browning [facility] General Stated complaint: left shoulder pain, no accident Time Seen by Provider: 04/20/23 10:55 History of Present Illness Provider Complaint: She states that for the past 4 days she has had worsening left shoulder pain. Certain movements makes her pain worse. She denies any injury of recent falls or mva. She denies any other complaints. She denies chest pain. Related Data Previous Rx's Medication Instructions Recorded lansoprazole 30 mg capsule,delayed See Rx Instructions .Route 04/11/23 release .COMPLEX #90 caps atorvastatin 10 mg tablet 10 mg PO DAILY #90 tabs 04/13/23 cholecalciferol (vitamin D3) 50 50 mcg PO DAILY #90 caps 04/13/23 mcg (2,000 unit) capsule ergocalciferol (vitamin D2) 1,250 1,250 mcg PO WEEKLY #14 caps 04/13/23 mcg (50,000 unit) capsule cyclobenzaprine 10 mg tablet 10 mg PO BID PRN Muscle Spasm #20 04/20/23 tabs methylprednisolone 4 mg tablets in 4 mg PO DIRECTED #21 tabs 04/20/23 a dose pack Allergies Allergy/AdvReac Type Severity Reaction Status Date / Time ibuprofen [IBUPROFEN] Allergy Unknown STOMACH Verified 04/20/23 11:03 UPSET naproxen [NAPROXEN] Allergy Unknown STOMACH Verified 04/20/23 11:03 UPSET ADHESIVES Allergy Unknown I-RASH Uncoded 04/11/23 10:56 [facility] Disclaimer: The information contained in this section may have been updated after the patient was seen, as this information can be updated by other users. 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
[2023-04-20 11:49] VITALS: BP 124/76; PULSE 65; RESP 18; TEMP 37.1; O2SAT 100
== END 2023-04-20 11:49 | disposition home or self-care (01) ==
PROVIDERS: Emergency Provider Nurse Practitioner Family; PCP Emergency Medicine
DX: M25.512 Pain in left shoulder (principal); M67.912 Unspecified disorder of synovium and tendon, left shoulder; F17.210 Nicotine dependence, cigarettes, uncomplicated
CPT/HCPCS: 96372; 99212; 99214; G0463

== ENCOUNTER 2023-07-01 19:19 | Emergency (ER) | payer OTHER, SELFPAY ==
[2023-07-01 19:21] VITALS: BP 151/82; PULSE 86; RESP 20; TEMP 36.7; O2SAT 98; BMI 27.3
[2023-07-01 19:31] VITALS: BP 117/77; PULSE 81; O2SAT 95
--- NOTE | 2023-07-01 19:31 | XR_ITS ---
PROCEDURE INFORMATION: Exam: XR Sacrum and Coccyx, 2 or More Views Exam date and time: 07/01/2023 7:29 PM Age: 37 years old Clinical indication: Pain in coccyx area; Additional info: Fall, tailbone pain TECHNIQUE: Imaging protocol: XR of the sacrum and coccyx, 2 or more views. Total images: 3 COMPARISON: CT ABDOMEN PELVIS W CON 06/14/2020 6:08 PM FINDINGS: Bones/joints: No acute sacral fracture. Arcuate lines are maintained. Unremarkable bilateral SI joints. Chronic anterior angulation of the coccyx unchanged from CT June 14, 2020 compatible with developmental or remote process. Pelvic ring is maintained. Soft tissues: Unremarkable soft tissues. Other findings: Bilateral tubal ligation clips. IMPRESSION: Negative sacrum and coccyx.
--- NOTE | 2023-07-01 19:33 | HMH.EDGENADL ---
Discharge Plan Disposition Patient Disposition: Home, Self-Care Prescriptions Prescriptions: New docusate sodium [Colace] 100 mg capsule 100 mg PO BID 14 Days Qty: 28 0RF No Action lansoprazole 30 mg capsule,delayed release(DR/EC) See Rx Instructions .ROUTE .COMPLEX Qty: 90 3RF Dose Instruction: TAKE ONE CAPSULE BY MOUTH ONCE A DAY FOR GERD Rx Instructions: TAKE ONE CAPSULE BY MOUTH ONCE A DAY FOR GERD ergocalciferol (vitamin D2) 1,250 mcg (50,000 unit) capsule 1,250 mcg PO WEEKLY Qty: 14 3RF cholecalciferol (vitamin D3) 50 mcg (2,000 unit) capsule 50 mcg PO DAILY Qty: 90 3RF atorvastatin 10 mg tablet 10 mg PO DAILY Qty: 90 3RF cyclobenzaprine 10 mg Tablet 10 mg PO BID PRN (Reason: Muscle Spasm) Qty: 20 0RF Referrals Follow up/Referrals: Kisha Wilde PA [Primary Care Provider] - See instructions Activity Restrictions/Add. Instructions Additional Instructions/Restrictions: I recommend you get a mechanical offloading pillow that is inflatable at any [id number] pharmacy that we discussed. Also take your stool softener and Tylenol in your muscle relaxer as needed. Clinical Impressions Clinical Impression: Coccygeal contusion Discharge ED Provider: Abhinav Garzon General Adult HPI General Chief complaint: Fall Stated complaint: AO07/04@1600 fall, tailbone pain Time Seen by Provider: 07/01/23 19:28 Mode of Arrival: Ambulatory Source of Information: Patient Limitations: No Limitations Description of Symptoms (Recalled from ER Triage Doc. by RN): Patient states that she was laying on the bed playing with her dog when she was it knocked her off the bed bed and she landed on her bottom. Patient states that she has pain in her tail bone that radiaties up and to her right hip. Pain has no problems walking or motor control, with bowel or bladder control ,or other complaints. History of Present Illness HPI narrative: Patient is a 37-year-old female who was playing with her dog and and accidentally knocked her off her bed she landed directly onto her tailbone on a hardwood floor and has had severe pain since that time. She denies any urinary retention any urinary or bowel incontinence any saddle anesthesia or lower extremity weakness or paralysis or paresthesias. Related Data Previous Rx's Medication Instructions Recorded lansoprazole 30 mg capsule,delayed See Rx Instructions .Route 04/11/23 release .COMPLEX #90 caps atorvastatin 10 mg tablet 10 mg PO DAILY #90 tabs 04/13/23 cholecalciferol (vitamin D3) 50 50 mcg PO DAILY #90 caps 04/13/23 mcg (2,000 unit) capsule ergocalciferol (vitamin D2) 1,250 1,250 mcg PO WEEKLY #14 caps 04/13/23 mcg (50,000 unit) capsule cyclobenzaprine 10 mg tablet 10 mg PO BID PRN Muscle Spasm #20 04/20/23 tabs docusate sodium 100 mg capsule 100 mg PO BID 14 days #28 caps 07/01/23 (Colace) Allergies Allergy/AdvReac Type Severity Reaction Status Date / Time ibuprofen [IBUPROFEN] Allergy Unknown STOMACH Verified 05/24/23 16:35 UPSET naproxen [NAPROXEN] Allergy Unknown STOMACH Verified 05/24/23 16:35 UPSET ADHESIVES Allergy Unknown I-RASH Uncoded 05/24/23 16:35 [facility] Disclaimer: The information contained in this section may have been updated after the patient was seen, as this information can be updated by other users. Medical History Endometriosis Surgical History H/O cystostomy History of cholecystectomy History of endometrial ablation History of surgery on arm History of vaginal hysterectomy Hx of dilation and curettage Hx of wisdom tooth extraction Social History Smoking Status: Current every day smoker tobacco type: cigarettes packs per day: 1 second hand exposure: Yes alcohol intake: never substance use type: marijuana current occupational st
[2023-07-01 20:00] VITALS: BP 117/71; PULSE 70; O2SAT 97
[2023-07-01 20:42] VITALS: BP 118/71; PULSE 69; RESP 16; TEMP 36.8; O2SAT 96
== END 2023-07-01 20:48 | disposition home or self-care (01) ==
LOC: ER 19:45
PROVIDERS: Emergency Provider Student in an Organized Health Care Education/Training Program; PCP Physician Assistant
DX: S30.0XXA Contusion of lower back and pelvis, initial encounter (principal); F17.210 Nicotine dependence, cigarettes, uncomplicated; W06.XXXA Fall from bed, initial encounter
CPT/HCPCS: 72220; 99283

== ENCOUNTER → 2023-07-20 09:44 | Outpatient (CLI) | payer OTHER, SELFPAY ==
--- NOTE | 2023-07-20 09:45 | US_ITS ---
PROCEDURE: US TRANSVAGINAL CLINICAL INDICATION: pelvic pain COMPARISON: No exams were available for comparison FINDINGS: Transvaginal sonographic images of the pelvis were obtained. UTERUS: Surgically absent. Vaginal vault is intact. LEFT OVARY: 2.0jox96vjk1.3cm with a volume of 6.9ml. RIGHT OVARY: 2.4cmx 1.7 cmx1.5 cm with a volume of 3.3ml. There is a 7 mm follicle present. Both ovaries are seen and appear normal. Doppler flow to both ovaries are seen. There is no fluid in the cul-de-sac. IMPRESSION: 1. Uterus is surgically absent. The vaginal vault is intact. 2. Both ovaries are seen and appear normal. 3. No fluid in the cul-de-sac. Dictated by: James Chao MD 07/21/2023 08:57 James Chao MD in OV 07/21/2023 08:57
== END ==
PROVIDERS: PCP Physician Assistant; Visit Provider Obstetrics & Gynecology
DX: R10.2 Pelvic and perineal pain (principal)
CPT/HCPCS: 76830

== ENCOUNTER 2023-08-10 10:27 | Outpatient (CLI) | payer OTHER, SELFPAY ==
--- NOTE | 2023-08-10 10:27 | CT_ITS ---
FINAL REPORT CLINICAL HISTORY: Abd pain. right lower quadrant pain. COMPARISON: 06/14/2020 FINDINGS: Axial CT images of the abdomen and pelvis were obtained without intravenous contrast. Coronal and sagittal reformatted images were also obtained.This study was performed with techniques to keep radiation doses as low as reasonably achievable (ALARA). Individualized dose reduction techniques using automated exposure control or adjustment of mA and/or kV according to the patient's size were employed. Abdomen:The lung bases are clear. There is no evidence of renal stone or hydronephrosis. The gallbladder has been surgically removed. The liver, spleen and pancreas have an unremarkable, unenhanced appearance. No mass or adenopathy is seen. There is mild diffuse colonic wall thickening that may represent mild colitis. Pelvis: Images of the pelvis reveal no evidence of ureteral dilation or ureteral stone.No mass or abnormal fluid collection is identified. The appendix is normal in appearance. The uterus has been surgically removed. IMPRESSION: Mild diffuse colonic wall thickening, which may represent mild colitis. Prior cholecystectomy and hysterectomy. The appendix is normal in appearance. Reviewed, Interpreted and Dictated by Ayan Lopez III, MD Transcribed by Teresa Hinds Authenticated and [facility]
== END 2023-08-10 23:59 ==
LOC: RAD 10:27
PROVIDERS: PCP Physician Assistant; Visit Provider Nurse Practitioner Family
DX: R10.9 Unspecified abdominal pain (principal)
CPT/HCPCS: 74176

== ENCOUNTER 2024-01-03 14:25 | Emergency (ER) | payer OTHER, SELFPAY ==
[2024-01-03 15:20] VITALS: BP 128/67; PULSE 63; RESP 20; TEMP 37; O2SAT 98; BMI 27.3
--- NOTE | 2024-01-03 15:44 | ED_ITS ---
Discharge Plan Disposition Patient Disposition: Home, Self-Care Condition: Good Prescriptions Prescriptions: New methocarbamol 500 mg tablet 500 mg PO TID PRN (Reason: muscle spasm) Qty: 12 0RF No Action lansoprazole 30 mg capsule,delayed release(DR/EC) See Rx Instructions .ROUTE .COMPLEX Qty: 90 3RF Dose Instruction: TAKE ONE CAPSULE BY MOUTH ONCE A DAY FOR GERD Rx Instructions: TAKE ONE CAPSULE BY MOUTH ONCE A DAY FOR GERD Referrals Follow up/Referrals: Kisha Wilde PA [Primary Care Provider] - See instructions Activity Restrictions/Add. Instructions Additional Instructions/Restrictions: Over the counter Tylenol if you can take it for pain Take Methocarbamol as directed for muscle spasm pain Follow up with your Family Doctor if no improvement or any worsening of symptoms Warm soaks in tub may help with pain Heating pad may help with discomfort Clinical Impressions Clinical Impression: Low back pain Instructions Patient Instructions: Methocarbamol, DI for Low Back Pain, Low Back Pain Discharge ED Provider: Chelsy Ford [facility] General Stated complaint: right side back pain Mode of Arrival: Ambulatory Source of Information: Patient Limitations: No Limitations Time Seen by Provider: 01/03/24 15:44 Description of Symptoms (Recalled from Triage Doc. by RN): PATIENT C/O PAIN TO RIGHT LOWER BACK SINCE MONDAY MORNING. 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 states that she has been having pain in her right lower back since Monday so today when it was still bothering her she came in to get it checked Denies radiation of pain and pain is worse with movement Denies hx of kidney stones Denies loss of control of bowel or bladder Related Data Previous Rx's Medication Instructions Recorded lansoprazole 30 mg capsule,delayed See Rx Instructions .Route 04/11/23 release .COMPLEX #90 caps methocarbamol 500 mg tablet 500 mg PO TID PRN muscle spasm #12 01/03/24 tabs Allergies Allergy/AdvReac Type Severity Reaction Status Date / Time ibuprofen [IBUPROFEN] Allergy Unknown STOMACH Verified 10/05/23 13:32 UPSET naproxen [NAPROXEN] Allergy Unknown STOMACH Verified 10/05/23 13:32 UPSET adhesive Allergy Verified 01/03/24 15:27 Worker's Comp Is this a Worker's Comp case?: No [facility] Disclaimer: The information contained in this section may have been updated after the patient was seen, as this information can be updated by other users. Medical History Chronic constipation Cyclical pelvic pain RLQ > LLQ Endometriosis Surgical History H/O cystostomy History of vaginal hysterectomy 2012 History of cholecystectomy Hx of wisdom tooth extraction History of surgery on arm History of endometrial ablation Hx of dilation and curettage Family History Other Diabetes Hypertension Social History Smoking Status: Current every day smoker tobacco type: cigarettes packs per day: 1 second hand exposure: Yes alcohol intake: never substance use type: marijuana current occupational status: employed Travel in the last 8 weeks: None household members: spouse housing: house 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 caffeine: Yes ROS Obtained: Yes All systems reviewed & no additional complaints except as documented and Yes Systems reviewed as appropriate & no additional complaints except as documented Constitutional Constitutional: Reports system reviewed and no additional complaints, except as documented, Reports as per HPI, Denies body ache, Denies chills and Denies fever(s) ENT Ears, Nose, Mouth, and Throat: Reports system reviewed and no additional complaints, except as documented and Reports as per HPI Cardiovascular Cardiovascular: Reports system reviewed and no additional complaints, except as documented and Reports as per HPI Respiratory Respiratory: Reports system reviewed and no additional complaints, except as documented and Reports as per HPI Gastrointestinal Gastrointestingal: Reports system reviewed and no additional complaints, except as documented and as per HPI Musculoskeletal Musculoskeletal: Reports system reviewed and no additional complaints, except as documented, Reports as per HPI and Reports back pain (right lower back) Physical Exam General General appearance: alert and in no apparent distress ENT ENT exam: Present mucous membranes moist Respiratory Respiratory exam: Present normal lung sounds bilaterally; Absent respiratory distress or wheezes Cardiovascular Cardiovascular exam: Present regular rate, normal rhythm and normal heart sounds Abdominal Exam Abdominal exam: Present soft, distention and normal bowel sounds Back Exam Back exam: Present tenderness Back 1 view image: 2 1. reports pain worse with certain movements, denies radiation, denies loss of control of bowel or bladder Neurological Exam Neurological exam: Present alert, oriented X3 and normal gait Medical Decision Making [place] Inquiry Pt receiving controlled substance: No [place] was queried for this patient: No Vital Signs: 01/03/24 15:20 Temperature 98.6 F Temperature Source Oral Pulse Rate [Left Brachial] 63 Respiratory Rate 20 Blood Pressure [Left Arm] 128/67 Blood Pressure Mean [Left Arm] 87 Blood Pressure Source [Left Arm] Automatic Cuff Blood Pressure Position [Left Arm] Sitting 02 Sat by Pulse Oximetry 98 Oxygen Delivery Method Room Air Lab Data Lab results reviewed: Yes I reviewed the patient's lab results.
[2024-01-03 15:58] LABS: Apearance,Urine Clear (Clear); Color,Urine Dark Yellow (Yellow); PH,Urine 5.5 (5.0-8.5); Specific Gravity, Urine >= 1.030 (1.005-1.030)
[2024-01-03 15:59] LABS: Bilirubin,Urine Negative (Negative); Blood, Urine 1+ (Negative); Glucose,Urine (UA) Negative (Negative); Ketones,Urine 15 (Negative); Protein,Urine Negative (Negative); UTC Leukocyte Esterase,Urine Negative (Negative); UTC Nitrate,Urine Negative (Negative); UTC Pregnancy Test, Urine Negative (Negative); Urobilinogen,Urine 0.2 EU/dl (0.2)
[2024-01-03 16:12] VITALS: BP 128/67; PULSE 63; RESP 20; TEMP 37; O2SAT 98
== END 2024-01-03 16:14 | disposition home or self-care (01) ==
PROVIDERS: Emergency Provider Nurse Practitioner; PCP Physician Assistant
DX: M54.59 Other low back pain (principal)
CPT/HCPCS: 81003; 81025; 99212; 99214; G0463

== ENCOUNTER 2024-02-13 15:53 | Outpatient (CLI) | payer OTHER, SELFPAY ==
[2024-02-13 16:49] LABS: Alanine Aminotransferase 13 U/L (12-78); Albumin Level 3.9 g/dl (3.5-5.0); Albumin/Globulin Ratio 1.7 (1.1-1.8); Alkaline Phosphatase 74 U/L (38-126); Anion Gap 9.8 mEq/L (5-15); Aspartate Amino Transferase 17 U/L (14-36); Bilirubin,Total 0.3 mg/dl (0.2-1.3); Blood Urea Nitrogen 9 mg/dl (7-17); Calcium 9.2 mg/dl (8.4-10.2); Carbon Dioxide 23 mmol/L (22.0-30.0); Chloride 108 mmol/L (98-107); Chol/HDL Ratio 3.6 (1-3.5); Cholesterol 186 mg/dl (140-200); Estimated Glomerular Filt Rate 112 ml/min (>60); GFR (African American) 135 ML/MIN (>60); Globulin 2.3 g/dL (1.3-3.2); Glucose 87 mg/dl (74-100); HDL Cholesterol 52 mg/dl (40-60); Potassium 3.8 mmoL/L (3.5-5.1); Sodium 137 mmol/L (136-145); Total Protein,Serum 6.2 g/dl (6.3-8.2); Triglycerides 110 mg/dl (30-150); VLDL Cholesterol 22 mg/dL (0-40)
[2024-02-13 16:51] LABS: Basophils # 0.1 K/mm3 (0-0.2); Basophils % 0.8 % (0.1-2.0); Eosinophils # 0.2 K/mm3 (0.0-0.4); Eosinophils % 1.6 % (0.1-12.0); Hematocrit 40.9 % (37.0-47.0); Hemoglobin 13.9 g/dL (12.2-16.2); Lymphocytes # 2.9 K/mm3 (0.7-4.5); Lymphocytes % 29.9 % (10-50); Mean Corpuscular Hemoglobin 32.5 pg (27.0-31.2); Mean Corpuscular Volume 95.4 fl (81-99); Mean Platelet Volume 7.7 fl (7.4-10.4); Monocytes # 0.5 K/mm3 (0.1-1.0); Monocytes % 5.6 % (1.7-9.3); Platelet Count 270 K/mm3 (142-424); Red Blood Count 4.29 M/mm3 (4.20-5.40); Red Cell Distribution Width 13.7 % (11.5-17.5); White Blood Count 9.6 K/mm3 (4.8-10.8)
[2024-02-13 17:01] LABS: Direct LDL Cholesterol 102.58 mg/dL (100-129)
[2024-02-13 17:05] LABS: 25-OH Vitamin D, Total 21.5 ng/mL (30-100)
[2024-02-13 17:19] LABS: Thyroid Stimulating Hormone 1.96 uIU/mL (0.465-4.68)
[2024-02-13 19:19] LABS: Hemoglobin A1C 6.3 % (4.0-6.0)
== END 2024-02-13 23:59 | disposition home or self-care (01) ==
LOC: LAB.DROPOF 15:53
PROVIDERS: PCP Physician Assistant; Visit Provider Physician Assistant
DX: R53.83 Other fatigue (principal); Z68.27 Body mass index [BMI] 27.0-27.9, adult; E55.9 Vitamin D deficiency, unspecified
CPT/HCPCS: 80050; 80053; 80061; 82306; 83036; 84443; 85025

== ENCOUNTER 2024-02-29 10:21 | Outpatient (CLI) | payer OTHER, SELFPAY ==
[2024-02-29 12:17] LABS: Hemoglobin A1C 5.1 % (4.0-6.0)
== END 2024-02-29 23:59 | disposition home or self-care (01) ==
LOC: LAB 10:21
PROVIDERS: PCP Physician Assistant; Visit Provider Physician Assistant
DX: R73.03 Prediabetes (principal)
CPT/HCPCS: 36415; 83036

== ENCOUNTER 2024-03-09 22:09 | Emergency (ER) | payer OTHER, SELFPAY ==
[2024-03-09 22:09] VITALS: BP 124/57; PULSE 81; RESP 16; TEMP 37; O2SAT 95; BMI 26.3
[2024-03-09 22:25] VITALS: BP 112/72; PULSE 81; O2SAT 95
--- NOTE | 2024-03-09 22:25 | CT_ITS ---
PROCEDURE INFORMATION: Exam: CT Lumbar Spine Without Contrast Exam date and time: 03/09/2024 11:02 PM Age: 38 years old Clinical indication: Low back pain; Additional info: Stabbing pain rad midline down ble posterior TECHNIQUE: Imaging protocol: Computed tomography of the lumbar spine without contrast. Total images: 305 Radiation optimization: All CT scans at this facility use at least one of these dose optimization techniques: automated exposure control; mA and/or kV adjustment per patient size (includes targeted exams where dose is matched to clinical indication); or iterative reconstruction. COMPARISON: CT ABDOMEN PELVIS WO CON 08/10/2023 10:28 AM FINDINGS: Bones/joints: Five non rib-bearing lumbar vertebral segments. Vertebral body height and alignment is well maintained. The pedicles and posterior elements are intact. The facet joints are appropriately aligned. There are no concerning bone lesions. Disc spaces are appropriate for age. No disc herniation, spinal canal stenosis, or neural foraminal encroachment. The posterior elements are intact. Minor degenerative changes bilateral SI joints. Minor focal dextrocurvature at L4-L5. Mild acquired spinal canal stenosis L4-L5 secondary to a mild disc bulge and ligamentous thickening. Vasculature: Abdominal aorta is normal in caliber. Lymph nodes: No retroperitoneal hematoma or lymphadenopathy. Soft tissues: No paraspinal mass, fluid collection, or edema. IMPRESSION: 1. No acute lumbar fracture or traumatic subluxation. 2. Mild acquired spinal canal stenosis at L4-L5 secondary to disc bulge and ligamentous thickening. 3. Very minor focal dextrocurvature at L4-L5.
--- NOTE | 2024-03-09 22:28 | ED_ITS ---
Discharge Plan Disposition Patient Disposition: Home, Self-Care Prescriptions Prescriptions: New cyclobenzaprine 5 mg tablet 5 mg PO TID PRN (Reason: muscle spasm) Qty: 30 0RF lidocaine 5 % adhesive patch,medicated 1 patch topical DAILY Qty: 15 0RF Rx Instructions: leave on most painful area for up to 12 hrs No Action lansoprazole 30 mg capsule,delayed release(DR/EC) See Rx Instructions .ROUTE .COMPLEX Qty: 90 3RF Dose Instruction: TAKE ONE CAPSULE BY MOUTH ONCE A DAY FOR GERD Rx Instructions: TAKE ONE CAPSULE BY MOUTH ONCE A DAY FOR GERD sertraline [Zoloft] 50 mg tablet 50 mg PO DAILY Qty: 30 2RF Vraylar 1.5 mg capsule 1.5 mg PO DAILY Qty: 30 2RF cholecalciferol (vitamin D3) 1,250 mcg (50,000 unit) capsule 1,250 mcg PO WEEKLY Qty: 5 0RF methocarbamol 500 mg tablet 500 mg PO TID PRN (Reason: muscle spasm) Qty: 12 0RF Referrals Follow up/Referrals: Kisha Wilde PA [Primary Care Provider] - See instructions Activity Restrictions/Add. Instructions Additional Instructions/Restrictions: Please follow-up with your primary care provider. Please return to the emergency department if you develop any new or worsening symptoms or become concerned for your health. Clinical Impressions Clinical Impression: Back pain Instructions Patient Instructions: DI for Low Back Pain Print Language Print Language: Serbian Discharge ED Provider: Jerald Nur General Adult HPI <Danyel Landers MD - Last Filed: 03/09/24 23:06> General Chief complaint: Back Pain/Injury Stated complaint: Back pain radiating down both legs,no injury Time Seen by Provider: 03/09/24 22:14 History of Present Illness HPI narrative: Patient is a 38-year-old female with past medical history of chronic back pain status post sciatic nerve intervention who presents emergency department for svitlana luation of back pain. She has chronic back pain that is mainly radiates down her right lower extremity however over the last few days she has had intermittent severe pain radiating down the posterior aspect of her bilateral lower extremities along her buttocks originating from her lumbar midline but does not extend all the way past the knee. She does not have any gait changes. No new trauma. It is worse with sitting and better with standing. No dysuria. Previous hysterectomy. No IV drug use. No bladder or bowel incontinence. No other acute complaints at this time. Related Data Previous Rx's ?Medication ?Instructions ?Recorded lansoprazole 30 mg capsule,delayed See Rx Instructions .Route 04/11/23 release .COMPLEX #90 caps methocarbamol 500 mg tablet 500 mg PO TID PRN muscle spasm #12 01/03/24 tabs cariprazine 1.5 mg capsule 1.5 mg PO DAILY #30 caps 02/13/24 (Vraylar) sertraline 50 mg tablet (Zoloft) 50 mg PO DAILY #30 tabs 02/13/24 cholecalciferol (vitamin D3) 1,250 1,250 mcg PO WEEKLY #5 caps 02/15/24 mcg (50,000 unit) capsule cyclobenzaprine 5 mg tablet 5 mg PO TID PRN muscle spasm #30 03/10/24 tabs lidocaine 5 % topical patch 1 patch topical DAILY #15 ea 03/10/24 Allergies Allergy/AdvReac Type Severity Reaction Status Date / Time ibuprofen [IBUPROFEN] Allergy Unknown STOMACH Verified 02/13/24 15:08 UPSET naproxen [NAPROXEN] Allergy Unknown STOMACH Verified 02/13/24 15:08 UPSET adhesive Allergy Verified 02/13/24 15:08 PFSH <Danyel Landers MD - Last Filed: 03/09/24 23:06> [facility] Disclaimer: The information contained in this section may have been updated after the patient was seen, as this information can be updated by other users. Medical History (Updated 03/10/24 @ 02:47 by Jerald Nur MD) Chronic constipation Cyclical pelvic pain Endometriosis Surgical History (Updated 02/15/24 @ 14:22 by CHRISTAL Segal) H/O cystostomy History of vaginal hysterectomy History of cholecystectomy Hx of wisdom tooth extraction History of surgery on arm History of endometrial ablation Hx of dilation and curettage Family History Other Diabetes Hypertension Social History Smoking Status: Current every day smoker tobacco type: cigarettes packs per day: 1 second hand exposure: Yes alcohol intake: never substance use type: marijuana current occupational status: employed Travel in the last 8 weeks: None household members: spouse housing: house 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 caffeine: Yes <Danyel Landers MD - Last Filed: 03/09/24 23:06> ROS Obtained: Yes Systems reviewed as appropriate & no additional complaints except as documented Physical Exam <Danyel Landers MD - Last Filed: 03/09/24 23:06> General General appearance: alert and in no apparent distress Head Head exam: atraumatic and normocephalic Eye Eye exam: Present PERRL and EOMI ENT ENT exam: Present mucous membranes moist Neck Neck exam: Present normal inspection Chest Chest inspection: Present normal inspection and symmetric chest wall rise Respiratory Respiratory exam: Absent respiratory distress Cardiovascular Cardiovascular exam: Present regular rate and normal rhythm Abdominal Exam Abdominal exam: Present soft Extremities Exam Extremities exam: Present normal inspection and other (5 out of 5 strength bilateral lower extremities.) Back Exam Back exam: Absent tenderness Neurological Exam Neurological exam: Present alert Psychiatric Psychiatric exam: Present normal affect Skin Skin exam: Present warm and dry Medical Decision Making <Danyel Landers MD - Last Filed: 03/09/24 23:06> [place] Inquiry Pt receiving controlled substance: No Vital Signs: 03/09/24 22:09 03/09/24 22:25 03/09/24 22:30 Temperature 98.6 F Temperature Source Oral Pulse Rate 81 78 Pulse Rate [Right Radial] 81 Respiratory Rate 16 Blood Pressure 112/72 112/72 Blood Pressure [Right Arm] 124/57 L Blood Pressure Mean [Right Arm] 79 Blood Pressure Source Blood Pressure Position 02 Sat by Pulse Oximetry 95 95 96 Oxygen Delivery Method Room Air 03/10/24 01:36 Temperature 98.0 F Temperature Source Oral Pulse Rate 66 Pulse Rate [Right Radial] Respiratory Rate 20 Blood Pressure 112/61 Blood Pressure [Right Arm] Blood Pressure Mean [Right Arm] Blood Pressure Source Automatic Cuff Blood Pressure Position Supine 02 Sat by Pulse Oximetry Oxygen Delivery Method Room Air Lab Data Lab Results 03/09/24 23:40: Urine Color Yellow, Urine Appearance Clear, Urine pH 6.0, Ur Specific [place] >= 1.030, Urine Protein Negative, Urine Glucose (UA) Negative, Urine Ketones Negative, Urine Blood 1+, Urine Nitrate Negative, Urine Bilirubin Negative, Urine Urobilinogen 0.2, Ur Leukocyte Esterase Negative, Urine RBC 3-5, Urine WBC None, Ur Squamous Epith Cells Occasional, Urine Bacteria None, Urine Mucus Trace Orders (Tests/Meds): ED MEDICATIONS Discontinued Medications Generic Name Dose Route Start Last Admin Trade Name Esther PRN Reason Stop Dose Admin Acetaminophen 1,000 mg 03/09/24 22:25 03/09/24 23:07 Acetaminophen 500mg Tab PO 03/09/24 22:26 1,000 mg ONCE ONE Administration Gabapentin 300 mg 03/09/24 22:27 03/09/24 23:07 Gabapentin 300mg Capsule PO 03/09/24 22:28 300 mg ONCE ONE Administration Lidocaine 1 each 03/09/24 22:25 03/09/24 23:07 Lidocaine 5% Transdermal Patch TP 03/09/24 22:26 1 each ONCE ONE Administration Methocarbamol 1,000 mg 03/09/24 22:26 03/09/24 23:07 Methocarbamol 500mg Tablet PO 03/09/24 22:27 1,000 mg ONCE ONE Administration ORDERS Category Date Time Status CT lumbar spine wo con Stat Cat Scan 03/09/24 22:25 Completed UA [Urinalysis and Microscopic] Stat Lab 03/09/24 23:40 Completed Medical Decision Narrative: In summary patient is a 38-year-old female past medical history described above presents emergency department for evaluation of back pain. Patient is hemodynamically stable nontoxic-appearing upon arrival, afebrile. Patient has midline back pain which will necessitate CT imaging. Differential includes spinal canal stenosis, sciatica, among others. Patient has no signs of spinal cord compression on my initial physical exam. Workup will be conducted with noncontrasted CT scan of the lumbar spine, urinalysis, postvoid residual. Initial interventions include multimodal pain control. Workup and repeat evaluation largely pending at time of transfer of care to the oncoming physician, Dr. Nur. <Jerald Nur MD - Last Filed: 03/10/24 02:47> Vital Signs: 03/09/24 22:09 03/09/24 22:25 03/09/24 22:30 Temperature 98.6 F Temperature Source Oral Pulse Rate 81 78 Pulse Rate [Right Radial] 81 Respiratory Rate 16 Blood Pressure 112/72 112/72 Blood Pressure [Right Arm] 124/57 L Blood Pressure Mean [Right Arm] 79 Blood Pressure Source Blood Pressure Position 02 Sat by Pulse Oximetry 95 95 96 Oxygen Delivery Method Room Air 03/10/24 01:36 Temperature 98.0 F Temperature Source Oral Pulse Rate 66 Pulse Rate [Right Radial] Respiratory Rate 20 Blood Pressure 112/61 Blood Pressure [Right Arm] Blood Pressure Mean [Right Arm] Blood Pressure Source Automatic Cuff Blood Pressure Position Supine 02 Sat by Pulse Oximetry Oxygen Delivery Method Room Air Lab Data Lab Results 03/09/24 23:40: Urine Color Yellow, Urine Appearance Clear, Urine pH 6.0, Ur Specific [place] >= 1.030, Urine Protein Negative, Urine Glucose (UA) Negative, Urine Ketones Negative, Urine Blood 1+, Urine Nitrate Negative, Urine Bilirubin Negative, Urine Urobilinogen 0.2, Ur Leukocyte Esterase Negative, Urine RBC 3-5, Urine WBC None, Ur Squamous Epith Cells Occasional, Urine Bacteria None, Urine Mucus Trace Orders (Tests/Meds): ED MEDICATIONS Discontinued Medications Generic Name Dose Route Start Last Admin Trade Name Freq PRN Reason Stop Dose Admin Acetaminophen 1,000 mg 03/09/24 22:25 03/09/24 23:07 Acetaminophen 500mg Tab PO 03/09/24 22:26 1,000 mg ONCE ONE Administration Gabapentin 300 mg 03/09/24 22:27 03/09/24 23:07 Gabapentin 300mg Capsule PO 03/09/24 22:28 300 mg ONCE ONE Administration Lidocaine 1 each 03/09/24 22:25 03/09/24 23:07 Lidocaine 5% Transdermal Patch TP 03/09/24 22:26 1 each ONCE ONE Administration Methocarbamol 1,000 mg 03/09/24 22:26 03/09/24 23:07 Methocarbamol 500mg Tablet PO 03/09/24 22:27 1,000 mg ONCE ONE Administration ORDERS Category Date Time Status CT lumbar spine wo con Stat Cat Scan 03/09/24 22:25 Completed UA [Urinalysis and Microscopic] Stat Lab 03/09/24 23:40 Completed Medical Decision Narrative: In summary patient is a 38-year-old female past medical history described above presents emergency department for evaluation of back pain. Patient is hemodynamically stable nontoxic-appearing upon arrival, afebrile. Patient has midline back pain which will necessitate CT imaging. Differential includes spinal canal stenosis, sciatica, among others. Patient has no signs of spinal cord compression on my initial physical exam. Workup will be conducted with noncontrasted CT scan of the lumbar spine, urinalysis, postvoid residual. Initial interventions include multimodal pain control. Workup and repeat evaluation largely pending at time of transfer of care to the oncoming physician, Dr. Nur. Boom ADHIKARI: I assumed care of the patient at the time of handoff from the prior provider. On reevaluation, patient has a postvoid residual volume of 0 mL. Back pain is mildly improved. Repeat physical exam remains reassuring. CT imaging shows mild spinal canal stenosis at the L4-L5 level, consistent with what patient reports she has been told before. No evidence of acute fracture or dislocation or other trauma. I had extensive discussion with patient and her presentation. She was given strict return precautions for signs and symptoms of spinal cord pathology. She was discharged with prescription for tizanidine and lidocaine patches. Critical Care <Danyel Landers MD - Last Filed: 03/09/24 23:06> Critical Care Time Critical Care Time: No
[2024-03-09 22:30] VITALS: BP 112/72; PULSE 78; O2SAT 96
[2024-03-09] MEDS: ACETAMINOPHEN 500MG TAB 1000 MG PO (23:07)
[2024-03-09] MEDS: METHOCARBAMOL 500MG TABLET 1000 MG PO (23:07)
[2024-03-09] MEDS: GABAPENTIN 300MG CAPSULE 300 MG PO (23:07)
[2024-03-09] MEDS: LIDOCAINE 5% TRANSDERMAL PATCH 1 EACH TP (23:07)
--- NOTE | 2024-03-09 23:43 | PC.NURSE ---
Post void residual: Pre-void bladder scan 81 mls, pt voided. Post-void resdiual bladder scan 0 mls.
[2024-03-09 23:44] LABS: Microscopic, Urine URINE MICROSCOPIC (MICROSCOPIC)
[2024-03-09 23:47] LABS: Appearance,Urine CLEAR (Clear); Bilirubin,Urine Negative (Negative); Blood, Urine 1+ (Negative); Color,Urine YELLOW (Yellow); Glucose,Urine (UA) Negative (Negative); Ketones,Urine Negative (Negative); Leukocyte Esterase,Urine Negative (Negative); Nitrate,Urine Negative (Negative); Protein,Urine Negative (Negative); Specific Gravity, Urine >= 1.030 (1.005-1.030); Urobilinogen,Urine 0.2 EU/dl (0.2)
--- NOTE | 2024-03-10 00:05 | PC.NURSE ---
Rad contacted to check on reads
[2024-03-10 00:08] LABS: Mucus,Urine Trace /lpf; Squamous Epithelial Cell,Urine Occasional #/hpf (0-5)
[2024-03-10 01:36] VITALS: BP 112/61; PULSE 66; RESP 20; TEMP 36.7; O2SAT 97
== END 2024-03-10 01:30 | disposition home or self-care (01) ==
PROVIDERS: Emergency Medicine; Emergency Provider Emergency Medicine; PCP Physician Assistant
DX: M54.50 Low back pain, unspecified (principal)
CPT/HCPCS: 72131; 81001; 99284

== ENCOUNTER 2024-03-23 23:06 | Emergency (ER) | payer OTHER, SELFPAY ==
[2024-03-23 23:07] VITALS: BP 138/91; PULSE 82; RESP 20; TEMP 36.8; O2SAT 97; BMI 27.8
--- NOTE | 2024-03-23 23:45 | ED_ITS ---
Discharge Plan Disposition Patient Disposition: Home, Self-Care Condition: Good Prescriptions Prescriptions: No Action lansoprazole 30 mg capsule,delayed release(DR/EC) See Rx Instructions .ROUTE .COMPLEX Qty: 90 3RF Dose Instruction: TAKE ONE CAPSULE BY MOUTH ONCE A DAY FOR GERD Rx Instructions: TAKE ONE CAPSULE BY MOUTH ONCE A DAY FOR GERD sertraline [Zoloft] 50 mg tablet 50 mg PO DAILY Qty: 30 2RF pregabalin [Lyrica] 50 mg capsule 50 mg PO TID Qty: 90 0RF methylprednisolone [Medrol (Librado)] 4 mg tablets,dose pack 4 mg PO PER PKG DIR 6 Days Qty: 21 0RF cholecalciferol (vitamin D3) 1,250 mcg (50,000 unit) capsule 1,250 mcg PO WEEKLY Qty: 5 0RF cyclobenzaprine 5 mg tablet 5 mg PO TID PRN (Reason: muscle spasm) Qty: 30 0RF lidocaine 5 % adhesive patch,medicated 1 patch topical DAILY Qty: 15 0RF Rx Instructions: leave on most painful area for up to 12 hrs Referrals Follow up/Referrals: Kisha Wilde PA [Primary Care Provider] - See instructions Activity Restrictions/Add. Instructions Additional Instructions/Restrictions: You were evaluated in the ER and are appropriate for discharge at this time. Continue taking your home medications as prescribed. Make an appointment with your primary care physician for reevaluation and discuss physical therapy. Return to the ER with new, worsening, or otherwise concerning symptoms. Clinical Impressions Clinical Impression: Acute right-sided low back pain with right-sided sciatica Print Language Print Language: Thai Discharge ED Provider: Melissa Olsen Adult HPI General Chief complaint: PAIN Stated complaint: back and leg pain Time Seen by Provider: 03/23/24 23:25 Mode of Arrival: Wheelchair Source of Information: Patient Limitations: No Limitations Description of Symptoms (Recalled from ER Triage Doc. by RN): Pt. presented to [facility] ED with c/o right leg pain. Pt. states it goes from the hip, down the buttocks and down the back of the right leg. Pt. states it has been going on for one month. Pt. states 10 yrs ago had similar and had a procedure and the nerves were burned. Pt. seen at PMD on steroids . History of Present Illness HPI narrative: 38-year-old female presents to the ER for complaints of pain in the low back radiating down the back of the right leg. Patient states it has been going on for 1 month. She states 10 years ago she had similar problem and had a procedure to burn the nerves but her pain has returned. Patient has seen her primary care doctor who prescribed Lyrica and put her on steroids. Per my review of PCP note, she also received Toradol at the doctor but this was not prescribed. Patient reports in the past she had upset stomach with ibuprofen and naproxen so she has not taken those but she has been taking Tylenol. She reports trying lidocaine patches without success. Patient reports difficulty walking however I witnessed her ambulating independently into the ER from the parking lot. Patient denies any numbness, tingling, weakness, no paralysis, no difficulty moving the bowels or bladder though she states it is uncomfortable to sit on the toilet. No saddle anesthesia. Related Data Previous Rx's ?Medication ?Instructions ?Recorded lansoprazole 30 mg capsule,delayed See Rx Instructions .Route 04/11/23 release .COMPLEX #90 caps sertraline 50 mg tablet (Zoloft) 50 mg PO DAILY #30 tabs 02/13/24 cholecalciferol (vitamin D3) 1,250 1,250 mcg PO WEEKLY #5 caps 02/15/24 mcg (50,000 unit) capsule cyclobenzaprine 5 mg tablet 5 mg PO TID PRN muscle spasm #30 03/10/24 tabs lidocaine 5 % topical patch 1 patch topical DAILY #15 ea 03/10/24 methylprednisolone 4 mg tablets in 4 mg PO PER PKG DIR 6 days #21 tabs 03/19/24 a dose pack (Medrol (Librado)) pregabalin 50 mg capsule (Lyrica) 50 mg PO TID #90 caps 03/19/24 Allergies Allergy/AdvReac Type Severity Reaction Status Date / Time ibuprofen [IBUPROFEN] Allergy Unknown STOMACH Verified 03/19/24 14:56 UPSET naproxen [NAPROXEN] Allergy Unknown STOMACH Verified 03/19/24 14:56 UPSET adhesive Allergy Verified 03/19/24 14:56 [facility] Disclaimer: The information contained in this section may have been updated after the patient was seen, as this information can be updated by other users. Medical History (Updated 03/23/24 @ 23:51 by Melissa Olsen MD) Chronic constipation Cyclical pelvic pain Endometriosis Surgical History (Updated 02/15/24 @ 14:22 by CHRISTAL Segal) H/O cystostomy History of vaginal hysterectomy History of cholecystectomy Hx of wisdom tooth extraction History of surgery on arm History of endometrial ablation Hx of dilation and curettage Family History Other Diabetes Hypertension Social History Smoking Status: Current every day smoker tobacco type: cigarettes packs per day: 1 second hand exposure: Yes alcohol intake: never substance use type: marijuana current occupational status: employed Travel in the last 8 weeks: None household members: spouse housing: house 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 caffeine: Yes ROS Obtained: Yes All systems reviewed & no additional complaints except as documented Positive ROS per HPI Physical Exam General General appearance: alert Comment: Patient appears to be in pain but not in extremis Head Head exam: atraumatic and normocephalic Eye Eye exam: Present PERRL and EOMI ENT ENT exam: Present mucous membranes moist Neck Neck exam: Present normal inspection and full ROM Chest Chest inspection: Present symmetric chest wall rise Respiratory Respiratory exam: Absent respiratory distress or stridor Cardiovascular Cardiovascular exam: Present regular rate and normal rhythm Extremities Exam Extremities exam: Present full ROM and other (Right gluteal tenderness, tenderness radiating down the posterior right leg and sciatic distribution) Back Exam Back exam: Present tenderness (No lumbar midline tenderness, no deformity or step-off, no findings of trauma), paraspinal tenderness (right lumbar paraspinal tenderness), sciatic notch tenderness (R) and straight leg raise (R); Absent sciatic notch tenderness (L) Neurological Exam Neurological exam: Present alert, oriented X3, CN II-XII intact, normal gait and other (No saddle anesthesia, full strength in bilateral lower extremities); Absent motor sensory deficit Psychiatric Psychiatric exam: Present normal affect and normal mood Skin Skin exam: Present warm and dry Medical Decision Making Medical Records Medical records reviewed: Yes I reviewed the patient's medical records. MR Comment: See HPI [place] Inquiry Pt receiving controlled substance: No Vital Signs: 03/23/24 23:07 03/24/24 00:05 03/24/24 00:31 Temperature 98.3 F 98.3 F Temperature Source Oral Oral Pulse Rate 65 65 Pulse Rate [Right] 82 Respiratory Rate 20 20 20 Blood Pressure 125/59 L 125/59 L Blood Pressure [Right Arm] 138/91 H Blood Pressure Mean [Right Arm] 106 Blood Pressure Source Automatic Cuff Automatic Cuff Blood Pressure Source [Right Arm] Automatic Cuff Blood Pressure Position Supine Sitting Blood Pressure Position [Right Arm] Supine 02 Sat by Pulse Oximetry 97 97 Oxygen Delivery Method Room Air Room Air Room Air Orders (Tests/Meds): ED MEDICATIONS Discontinued Medications Generic Name Dose Route Start Last Admin Trade Name Esther PRN Reason Stop Dose Admin Ketorolac Tromethamine 30 mg 03/23/24 23:44 03/24/24 00:00 Ketorolac 30mg/Ml Vial IM 03/23/24 23:45 30 mg ONCE ONE Administration Methocarbamol 1,500 mg 03/23/24 23:45 03/23/24 23:57 Methocarbamol 500mg Tablet PO 04/22/24 23:44 1,500 mg BID CHERYL Administration Medical Decision Narrative: In summary, this 38-year-old female presents to the emergency department today with low back pain radiating down the back of the right leg. On initial evaluation patient is hemodynamically stable, afebrile, tenderness to palpation of the right paraspinal area radiating into the glutes, positive straight leg raise, no saddle anesthesia, no neurologic deficits, no red flag signs. Differential diagnosis includes but is not limited to muscle spasm, radiculopathy, I considered the possibility of cauda equina however patient does not have any red flag symptoms for this.. Patient has comorbidity of having previous chronic back pain diagnosis which increases risk of recurrence and difficulty controlling her pain. I do not believe she requires labs or imaging at this time, multimodal pain control with Toradol and Robaxin have been provided to the patient in the ER. She has already taken Tylenol at home so this will not be provided. She reports lidocaine patches do not help. After medication administration in the ER she continues to be stable and is appropriate for discharge. Patient was given instructions on symptomatic management, follow up instructions, and return precautions for the emergency department. Patient indicated understanding and was discharged in stable condition. Critical Care Critical Care Time Critical Care Time: No
[2024-03-23] MEDS: METHOCARBAMOL 500MG TABLET 1500 MG PO (23:57)
[2024-03-24] MEDS: KETOROLAC 30MG/ML VIAL 30 MG IM
[2024-03-24 00:05] VITALS: BP 125/59; PULSE 65; RESP 20; O2SAT 97
[2024-03-24 00:31] VITALS: BP 125/59; PULSE 65; RESP 20; TEMP 36.8; O2SAT 97
== END 2024-03-24 00:35 | disposition home or self-care (01) ==
PROVIDERS: Emergency Provider Emergency Medicine; PCP Physician Assistant
DX: M54.41 Lumbago with sciatica, right side (principal); F17.210 Nicotine dependence, cigarettes, uncomplicated
CPT/HCPCS: 96372; 99283; J1885

== ENCOUNTER 2024-04-18 13:49 | Outpatient (POV) | payer OTHER, SELFPAY ==
--- NOTE | 2024-04-18 14:31 | A.OFFVIS_ITS ---
HPI Data of Consult Patient: new to practice Consult date: 04/18/24 Requesting Physician: Tiff Vargas APRN Primary Care Provider: CHRISTAL Segal Consult Narrative Reason for consult: Low back pain, right hip pain History of present illness: Ms. Garzon is a 38 year old female who presents today as a new patient. She is a referral from Kisha Wilde's office. Today she rates her pain a 10 out of 10. Patient states her pain is all along her low back on the right side and right hip going into her buttocks. Patient does state this is been going on for this episode at least 1 month. Patient describes it as a sharp stabbing sensation that is worse with increased activity or certain positioning. Patient does state that she often has to change positions due to the worsening pain. She states that hard seating seems to really aggravate her overall symptoms. Patient does state that she has been having trouble sleeping and even getting out of bed due to the pain. Patient does state that this is an issue that she has had in the past. She states about 8 years ago she ended up having a ablation and that it really did seem to help and provide significant improvement. Patient states that she did believe it was sciatic related. Patient states that this was done there in [place]. Patient states that she was also told she does have some degenerative disc disease. Patient has tried [id number] medications along with TENS unit, heat and ice and topicals with minimal relief. Patient has had physical therapy in the past with no change. Patient is currently managed with pregabalin. She states this does help somewhat along with cyclobenzaprine. She was also given a temporary dose of Humphrey from her PCP. Her [place] has been reviewed and is appropriate. CC: Tiff Vargas APRN [facility] Disclaimer: The information contained in this section may have been updated after the patient was seen, as this information can be updated by other users. Medical History (Updated 04/18/24 @ 14:34 by Tiff Vargas APRN) Chronic constipation Cyclical pelvic pain Endometriosis Surgical History (Updated 02/15/24 @ 14:22 by CHRISTAL Segal) H/O cystostomy History of vaginal hysterectomy History of cholecystectomy Hx of wisdom tooth extraction History of surgery on arm History of endometrial ablation Hx of dilation and curettage Family History Other Diabetes Hypertension Social History Smoking Status: Current every day smoker tobacco type: cigarettes packs per day: 1 second hand exposure: Yes alcohol intake: never substance use type: marijuana current occupational status: employed Travel in the last 8 weeks: None household members: spouse housing: house 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 caffeine: Yes Review of Systems Review of Systems Review of systems:: pertinent systems reviewed and negative unless documented below Review of systems (narrative): Review of Systems: General: No recent weight changes, no fever, no sleep disturbances Respiratory: No cough, no shortness of air, no recurring pulmonary infections Cardiovascular/peripheral vascular: No chest pain, no palpitations, no edema, no shortness of breath Gastrointestinal: No new onset incontinence, normal bowel movements reported Genitourinary: No new onset incontinence Musculoskeletal: Low back pain, right hip pain, buttocks pain Psychiatric: [Normal mood/affect] Neurological: [Denies weakness in extremities], [denies balance issues] Meds Home Medications and Allergies Home Medications ?Medication ?Instructions ?Recorded ?Confirmed ?Type lansoprazole 30 mg capsule,delayed See Rx Instructions .Route 04/11/23 03/19/24 Rx release .COMPLEX #90 caps sertraline 50 mg tablet (Zoloft) 50 mg PO DAILY #30 tabs 02/13/24 03/19/24 Rx cyclobenzaprine 5 mg tablet 5 mg PO TID PRN muscle spasm #30 03/10/24 03/19/24 Rx tabs lidocaine 5 % topical patch 1 patch topical DAILY #15 ea 03/10/24 03/19/24 Rx methylprednisolone 4 mg tablets in 4 mg PO PER PKG DIR 6 days #21 tabs 03/19/24 03/19/24 Rx a dose pack (Medrol (Librado)) pregabalin 50 mg capsule (Lyrica) 50 mg PO TID #90 caps 03/19/24 03/19/24 Rx cholecalciferol (vitamin D3) 1,250 See Rx Instructions .Route 04/10/24 Rx mcg (50,000 unit) capsule .COMPLEX #5 caps New Prescriptions to Start Prescriptions: Allergies Allergy/AdvReac Type Severity Reaction Status Date / Time ibuprofen [IBUPROFEN] Allergy Unknown STOMACH Verified 03/19/24 14:56 UPSET naproxen [NAPROXEN] Allergy Unknown STOMACH Verified 03/19/24 14:56 UPSET adhesive Allergy Verified 03/19/24 14:56 Objective Narrative: Physical Exam: General: Alert and oriented x3, no acute distress, pleasant and cooperative Lungs: Respirations even and unlabored, symmetrical chest expansion Eyes: PERRL Musculoskeletal: Flexion and extension of lumbar [spine] somewhat guarded secondary to pain, [antalgic gait noted] point tenderness along right SI with positive right Damion's, Mily's, Gaenslen's, compression and distraction exam Neurological: Speech clear, no gross sensory deficit Additional findings Additional findings: FINDINGS: Bones/joints: Five non rib-bearing lumbar vertebral segments. Vertebral body height and alignment is well maintained. The pedicles and posterior elements are intact. The facet joints are appropriately aligned. There are no concerning bone lesions. Disc spaces are appropriate for age. No disc herniation, spinal canal stenosis, or neural foraminal encroachment. The posterior elements are intact. Minor degenerative changes bilateral SI joints. Minor focal dextrocurvature at L4-L5. Mild acquired spinal canal stenosis L4-L5 secondary to a mild disc bulge and ligamentous thickening. Vasculature: Abdominal aorta is normal in caliber. Lymph nodes: No retroperitoneal hematoma or lymphadenopathy. Soft tissues: No paraspinal mass, fluid collection, or edema. IMPRESSION: 1. No acute lumbar fracture or traumatic subluxation. 2. Mild acquired spinal canal stenosis at L4-L5 secondary to disc bulge and ligamentous thickening. 3. Very minor focal dextrocurvature at L4-L5. Assessment and Plan *Assessment and plan (1) Sacroiliitis: Status: Acute Category: Medical Code(s): M46.1 - Sacroiliitis, not elsewhere classified Plan Patient is experiencing significant pain in and around her low back and right hip. Patient did have extreme point tenderness along her right SI with positive Damion's, Mily's, Gaenslen's, compression and distraction exam. I did discuss with the patient that she may benefit from right SI injection. Risk and benefits were discussed with the patient and she would like to proceed forward with this plan of care. Patient has tried and failed conservative therapy including continued at home stretching exercise for longer than 4 weeks. We will submit for right SI injection under fluoroscopy. Patient has had what sounds like previous SI RFA that did have 100% improvement lasting the last 8 years. Patient has been instructed to contact the clinic with any concerns before the next appointment. Dr. Servin has reviewed this note and agrees with this plan of care. This note was dictated using voice recognition software and make contain errors or omissions. All injections are used with Lidocaine or Bupivacaine and Depo Medrol.
[2024-04-18 15:16] VITALS: BP 118/66; PULSE 73; RESP 18; O2SAT 98; BMI 28.5
== END 2024-04-18 23:59 | disposition home or self-care (01) ==
LOC: SC.PAIN 13:50
PROVIDERS: PCP Physician Assistant; Visit Provider Nurse Practitioner Family
DX: M46.1 Sacroiliitis, not elsewhere classified (principal); F17.210 Nicotine dependence, cigarettes, uncomplicated
CPT/HCPCS: 99202; G0463

== ENCOUNTER 2024-06-04 13:51 | Day surgery (SDC) | payer OTHER, SELFPAY ==
[2024-06-04 14:07] VITALS: BP 120/59; PULSE 65; RESP 16; TEMP 36.7; O2SAT 97; BMI 28.1
[2024-06-04] MEDS: methylPREDNISolone ACETATE 80MG/ML VIAL 80 MG (14:23)
[2024-06-04] MEDS: LIDOCAINE 1% 5ML PF VIAL 5 ML (14:23)
--- NOTE | 2024-06-04 14:28 | EXP.PAIN.PRO ---
Procedure Date: 06/04/24 Time: 14:20 Anesthesiologist:: Ulysses العلي CRNA Complications:: None Pre-procedure Diagnosis:: Right sacroiliitis Post-procedure Diagnosis:: Same Indications for Procedure:: Patient is a pleasant 38-year-old female comes our clinic today for right sacroiliac joint injection of cortisone and local anesthetic. Patient describes low lumbar back pain off the midline to the right. Right posterior hip pain. Difficulty transitioning from sitting to standing due to right posterior hip pain. She rates her pain 9/10. Procedure Details:: Procedure: Right sacroliliac joint injection under fluoroscopy Informed consent was obtained and the risk and benefits of the procedure were explained to the patient.~ The patient was taken to the procedure room and noninvasive monitors were placed including noninvasive blood pressure cuff and pulse oximeter.~ The patient was placed prone on the procedure table.~ The~ right hip was cleansed using Betadine as a cleansing solution.~ C-arm fluorosocpy was used to view the right SI joint.~ The skin and subcutaneous tissues were anesthetized using Lidocaine 1.5% and a 25-gauge needle.~ After this, a 22-gauge spinal needle was inserted under fluoroscopic guidance into the inferior aspect of the right SI joint.~ Omnipaque dye was injected and a good spread was seen throughout the joint.~ After this, approximately 5 mL of bupivacaine 0.25% and Depo-Medrol 40 mg was incrementally injected into the sacroiliac joint.~ The patient tolerated the procedure well with no complications.~ The patient was observed in the Pain Clinic, then discharged home neurologically intact.~ Plan and Disposition:: Patient was reevaluated 10 minutes post procedure. She reports minimal to no pain in the right posterior hip area. She rates her pain 1/10.
[2024-06-04 14:30] VITALS: BP 118/66; PULSE 77; RESP 16; TEMP 36.8; O2SAT 99
== END 2024-06-04 14:30 | disposition home or self-care (01) ==
PROVIDERS: PCP Physician Assistant; Visit Provider Nurse Anesthetist, Certified Registered
DX: M46.1 Sacroiliitis, not elsewhere classified (principal)
CPT/HCPCS: 27096; G0260; J1010

== ENCOUNTER 2024-06-14 14:25 | Emergency (ER) | payer OTHER, SELFPAY ==
[2024-06-14 14:34] VITALS: BP 130/91; PULSE 72; RESP 16; TEMP 36.8; O2SAT 98; BMI 28.5
--- NOTE | 2024-06-14 14:36 | HMH.EDGENADL ---
Discharge Plan Disposition Patient Disposition: Home, Self-Care Condition: Good Prescriptions Prescriptions: New albuterol sulfate 90 mcg/actuation HFA aerosol inhaler 1 inh inhalation Q4H PRN (Reason: shortness of breath or wheezing) Qty: 8.5 0RF prednisone 50 mg tablet 50 mg PO DAILY 5 Days Qty: 5 0RF doxycycline hyclate 100 mg capsule 100 mg PO BID 10 Days Qty: 20 0RF No Action lansoprazole 30 mg capsule,delayed release(DR/EC) See Rx Instructions .ROUTE .COMPLEX Qty: 90 3RF Dose Instruction: TAKE ONE CAPSULE BY MOUTH ONCE A DAY FOR GERD Rx Instructions: TAKE ONE CAPSULE BY MOUTH ONCE A DAY FOR GERD sertraline [Zoloft] 50 mg tablet 50 mg PO DAILY Qty: 30 2RF pregabalin [Lyrica] 50 mg capsule 50 mg PO BID Qty: 60 0RF cholecalciferol (vitamin D3) 1,250 mcg (50,000 unit) capsule See Rx Instructions .ROUTE .COMPLEX Qty: 5 0RF Dose Instruction: TAKE ONE CAPSULE BY MOUTH WEEKLY Rx Instructions: TAKE ONE CAPSULE BY MOUTH WEEKLY cyclobenzaprine 5 mg tablet 5 mg PO TID PRN (Reason: muscle spasm) Qty: 30 0RF lidocaine 5 % adhesive patch,medicated 1 patch topical DAILY Qty: 15 0RF Rx Instructions: leave on most painful area for up to 12 hrs Referrals Follow up/Referrals: Kisha Wilde PA [Primary Care Provider] - See instructions Activity Restrictions/Add. Instructions Additional Instructions/Restrictions: Follow-up with your PCP within 48 hours for recheck. I have sent prescriptions into your pharmacy. Please complete the full course of antibiotics and steroids. Follow-up with your PCP for no improvement or worsening symptoms as needed or return to the ER. Clinical Impressions Clinical Impression: Bronchitis Print Language Print Language: Italian Discharge ED Provider: Tiff Louis General Adult HPI <CHRISTAL Szymanski - Last Filed: 06/14/24 16:19> General Chief complaint: Upper Respiratory Infection Stated complaint: congestion and soa Time Seen by Provider: 06/14/24 14:35 History of Present Illness HPI narrative: Patient presents for cough congestion and malaise. Patient has had 2 to 3 days of nonproductive cough however today she has began feeling more short of breath/more difficult to breathe. She has been having some drainage and some sore throat for the last couple days however she feels it is now moved into her chest. She has a course nonproductive cough. She is an ongoing smoker of approximately half a pack a day. She denies any chest pain hemoptysis hematochezia melena nausea vomiting diarrhea. Related Data Previous Rx's ?Medication ?Instructions ?Recorded lansoprazole 30 mg capsule,delayed See Rx Instructions .Route 04/11/23 release .COMPLEX #90 caps cyclobenzaprine 5 mg tablet 5 mg PO TID PRN muscle spasm #30 03/10/24 tabs lidocaine 5 % topical patch 1 patch topical DAILY #15 ea 03/10/24 cholecalciferol (vitamin D3) 1,250 See Rx Instructions .Route 04/10/24 mcg (50,000 unit) capsule .COMPLEX #5 caps sertraline 50 mg tablet (Zoloft) 50 mg PO DAILY #30 tabs 04/22/24 pregabalin 50 mg capsule (Lyrica) 50 mg PO BID #60 caps 04/23/24 albuterol sulfate 90 mcg/actuation 1 inh inhalation Q4H PRN shortness 06/14/24 aerosol inhaler of breath or wheezing #8.5 grams doxycycline hyclate 100 mg capsule 100 mg PO BID 10 days #20 caps 06/14/24 prednisone 50 mg tablet 50 mg PO DAILY 5 days #5 tabs 06/14/24 Allergies Allergy/AdvReac Type Severity Reaction Status Date / Time ibuprofen [IBUPROFEN] Allergy Unknown STOMACH Verified 04/23/24 15:46 UPSET naproxen [NAPROXEN] Allergy Unknown STOMACH Verified 04/23/24 15:46 UPSET adhesive Allergy Verified 04/23/24 15:46 PFS <CHRISTAL Szymanski - Last Filed: 06/14/24 16:19> [facility] Disclaimer: The information contained in this section may have been updated after the patient was seen, as this information can be updated by other users. Medical History retirement use of drug Chronic constipation Cyclical pelvic pain RLQ > LLQ Endometriosis Surgical History H/O cystostomy History of vaginal hysterectomy 2013 History of cholecystectomy Hx of wisdom tooth extraction History of surgery on arm History of endometrial ablation Hx of dilation and curettage Family History Other Diabetes Hypertension Social History Smoking Status: Current every day smoker tobacco type: cigarettes packs per day: 1 second hand exposure: Yes alcohol intake: never substance use type: marijuana current occupational status: employed Travel in the last 8 weeks: None household members: spouse housing: house 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 caffeine: Yes Other Medical History Have you received the Flu Vaccine for this season: Yes Have you received the Pneumonia Vaccine: No <CHRISTAL Szymanski - Last Filed: 06/14/24 16:19> ROS Obtained: Yes Systems reviewed as appropriate & no additional complaints except as documented Physical Exam <CHRISTAL Szymanski - Last Filed: 06/14/24 16:19> General General appearance: alert and in no apparent distress Respiratory Respiratory exam: Present normal lung sounds bilaterally Cardiovascular Cardiovascular exam: Present regular rate Neurological Exam Neurological exam: Present alert and oriented X3 Medical Decision Making <CHRISTAL Szymanski - Last Filed: 06/14/24 16:19> Medical Records Medical records reviewed: Yes I reviewed the patient's medical records. Screening: Per USPSTF and CDC recommendations, given the prevalence of disease in our region, it is our hospital?s policy to screen for HIV and viral Hepatitis for all patients aged 18 and over and those with ongoing risk factors. [place] Inquiry Pt receiving controlled substance: No Vital Signs: 06/14/24 14:34 06/14/24 15:37 Temperature 98.2 F 98.0 F Temperature Source Oral Oral Pulse Rate 64 Pulse Rate [Left] 72 Respiratory Rate 16 18 Blood Pressure 120/78 Blood Pressure [Right Arm] 130/91 H Blood Pressure Mean [Right Arm] 104 Blood Pressure Source Automatic Cuff Blood Pressure Source [Right Arm] Automatic Cuff Blood Pressure Position Sitting Blood Pressure Position [Right Arm] Sitting 02 Sat by Pulse Oximetry 98 Oxygen Delivery Method Room Air Room Air Lab Data Lab results reviewed: Yes I reviewed the patient's lab results. Lab Results 06/14/24 14:38: SARS-CoV-2 (PCR) Not detected, Influenza A Untype (PCR) Not detected, Influenza Type B (PCR) Not detected Orders (Tests/Meds): ED MEDICATIONS Discontinued Medications Generic Name Dose Route Start Last Admin Trade Name Esther PRN Reason Stop Dose Admin Acetaminophen 1,000 mg 06/14/24 14:44 06/14/24 14:49 Acetaminophen 500mg Tab PO 06/14/24 14:45 1,000 mg ONCE ONE Administration Albuterol/Ipratropium 3 ml 06/14/24 14:44 06/14/24 14:49 Ipratropium/Albuterol 3 Ml Neb IH 06/14/24 14:45 3 ml ONCE ONE Administration Prednisone 60 mg 06/14/24 14:44 06/14/24 14:49 Prednisone 20mg Tab PO 06/14/24 14:45 60 mg ONCE ONE Administration ORDERS Category Date Time Status Chest XR 2 view (NOT portable) [XR chest 2V] Stat Exams 06/14/24 14:44 Completed Rapid PCR Covid and Flu A/B Stat Lab 06/14/24 14:38 Completed Medical Decision Narrative: In summary patient is a 38-year-old female who presents to the emergency department for evaluation of cough congestion and dyspnea. Patient is hemodynamically stable upon arrival, febrile. Physical exam is remarkable for a coarse bronchial wet sounding cough but is nonproductive currently. Her breath sounds are actually clear and equal bilaterally to the bases without adventitious sounds. There is no increased work of breathing no accessory muscle use.. Differential diagnosis includes viral or bacterial infection. Initial workup will be conducted with plain film chest x-ray COVID and flu swabs. Initial interventions include steroids breathing treatment Toradol Tylenol. Initial workup reviewed by me and my informal interpretation of her plain film chest x-ray shows findings consistent with bronchitis but no obvious infiltrates or other intrathoracic acute abnormalities and her COVID and flu swabs were negative.. Upon repeat evaluation patient reported significant improvement with initial intervention. Given this patient is appropriate for discharge with prescriptions for steroid metered-dose inhaler and doxycycline. <Hermelindo Oakes MD - Last Filed: 06/14/24 18:39> Vital Signs: 06/14/24 14:34 06/14/24 15:37 Temperature 98.2 F 98.0 F Temperature Source Oral Oral Pulse Rate 64 Pulse Rate [Left] 72 Respiratory Rate 16 18 Blood Pressure 120/78 Blood Pressure [Right Arm] 130/91 H Blood Pressure Mean [Right Arm] 104 Blood Pressure Source Automatic Cuff Blood Pressure Source [Right Arm] Automatic Cuff Blood Pressure Position Sitting Blood Pressure Position [Right Arm] Sitting 02 Sat by Pulse Oximetry 98 Oxygen Delivery Method Room Air Room Air Lab Data Lab Results 06/14/24 14:38: SARS-CoV-2 (PCR) Not detected, Influenza A Untype (PCR) Not detected, Influenza Type B (PCR) Not detected Orders (Tests/Meds): ED MEDICATIONS Discontinued Medications Generic Name Dose Route Start Last Admin Trade Name Esther PRN Reason Stop Dose Admin Acetaminophen 1,000 mg 06/14/24 14:44 06/14/24 14:49 Acetaminophen 500mg Tab PO 06/14/24 14:45 1,000 mg ONCE ONE Administration Albuterol/Ipratropium 3 ml 06/14/24 14:44 06/14/24 14:49 Ipratropium/Albuterol 3 Ml Neb IH 06/14/24 14:45 3 ml ONCE ONE Administration Prednisone 60 mg 06/14/24 14:44 06/14/24 14:49 Prednisone 20mg Tab PO 06/14/24 14:45 60 mg ONCE ONE Administration ORDERS Category Date Time Status Chest XR 2 view (NOT portable) [XR chest 2V] Stat Exams 06/14/24 14:44 Completed Rapid PCR Covid and Flu A/B Stat Lab 06/14/24 14:38 Completed Medical Decision Narrative: In summary patient is a 38-year-old female who presents to the emergency department for evaluation of cough congestion and dyspnea. Patient is hemodynamically stable upon arrival, febrile. Physical exam is remarkable for a coarse bronchial wet sounding cough but is nonproductive currently. Her breath sounds are actually clear and equal bilaterally to the bases without adventitious sounds. There is no increased work of breathing no accessory muscle use.. Differential diagnosis includes viral or bacterial infection. Initial workup will be conducted with plain film chest x-ray COVID and flu swabs. Initial interventions include steroids breathing treatment Toradol Tylenol. Initial workup reviewed by me and my informal interpretation of her plain film chest x-ray shows findings consistent with bronchitis but no obvious infiltrates or other intrathoracic acute abnormalities and her COVID and flu swabs were negative.. Upon repeat evaluation patient reported significant improvement with initial intervention. Given this patient is appropriate for discharge with prescriptions for steroid metered-dose inhaler and doxycycline. I was consulted by the LATRELL, and we discussed the complexity of the problems being addressed. I approved the treatment and management plan for this patient's care in the Emergency Department, thus performing a substantive portion of the medical decision making. Hermelindo Oakes MD Critical Care <CHRISTAL Szymanski - Last Filed: 06/14/24 16:19> Critical Care Time Critical Care Time: No
[2024-06-14 14:43] LABS: Coronavirus 19, PCR Not Detected (NotDetected); Influenza A, PCR Not Detected (NotDetected); Influenza B, PCR Not Detected (NotDetected)
--- NOTE | 2024-06-14 14:44 | XR_ITS ---
FINAL REPORT CLINICAL HISTORY: Cough congestion dyspnea COMPARISON: 05/17/2019 FINDINGS: Two views of the chest were obtained. The heart size and pulmonary vascularity are within normal limits. The mediastinum is normal. No acute pulmonary abnormality is identified. There is no pneumothorax. The bony thorax is intact. IMPRESSION: No active cardiopulmonary disease. Reviewed, Interpreted and Dictated by Ayan Lopez III, MD Transcribed by Sandee Ahn Authenticated and [facility]
[2024-06-14] MEDS: IPRATROPIUM/ALBUTEROL 3 ML NEB IH (14:49)
[2024-06-14] MEDS: predniSONE 20MG TAB 60 MG PO (14:49)
[2024-06-14] MEDS: ACETAMINOPHEN 500MG TAB 1000 MG PO (14:49)
--- NOTE | 2024-06-14 15:17 | PC.NURSE ---
PT RETURNED FROM RADIOLOGY
[2024-06-14 15:37] VITALS: BP 120/78; PULSE 64; RESP 18; TEMP 36.7; O2SAT 98
== END 2024-06-14 15:38 | disposition home or self-care (01) ==
PROVIDERS: Emergency Provider Emergency Medicine; PCP Physician Assistant
DX: J40 Bronchitis, not specified as acute or chronic (principal); R05.9 Cough, unspecified; R06.02 Shortness of breath; R09.82 Postnasal drip; J02.9 Acute pharyngitis, unspecified; Z72.0 Tobacco use
CPT/HCPCS: 71046; 87636; 99283; J7620

== ENCOUNTER 2024-11-08 09:14 | Emergency (ER) | payer OTHER, SELFPAY ==
[2024-11-08] VITALS (9 sets, daily range): BP systolic 97–172; BP diastolic 46–146; PULSE 58–107; RESP 13–22; TEMP 36.8–36.9; O2SAT 95–99; BMI 31.4
--- NOTE | 2024-11-08 09:33 | CT_ITS ---
FINAL REPORT TECHNIQUE: Noncontrast exam This study was performed with techniques to keep radiation doses as low as reasonably achievable, (ALARA). Individualized dose reduction techniques using automated exposure control or adjustment of mA and/or kV according to the patient''s size were employed. CLINICAL HISTORY: RLQ pain rad to R flank COMPARISON: 08/10/2023 FINDINGS: Abdomen: Lung bases are clear. Liver, spleen, pancreas and adrenal glands have a normal CT appearance in their limited unenhanced state. Patient is status postcholecystectomy. The kidneys show no stone disease or obstruction. No obvious renal mass is present. No ureteral stones are present. There is no free fluid or free air. Pelvis: The appendix is normal. Hysterectomy is noted. No distal ureteral stones are seen. Bladder is unremarkable. No fluid collection or adenopathy is seen. IMPRESSION: No acute process. Reviewed, Interpreted and Dictated by Kim Bob MD Transcribed by Frida Fontanez Authenticated and [facility]
--- NOTE | 2024-11-08 09:34 | HMH.EDGENADL ---
Discharge Plan Disposition Patient Disposition: Home, Self-Care Condition: Good Prescriptions Prescriptions: New hydrocodone-acetaminophen 5-325 mg tablet 1 tab PO Q8H PRN (Reason: pain) Qty: 12 0RF ondansetron 4 mg tablet,disintegrating 4 mg PO Q8H PRN (Reason: nausea and vomiting) 4 Days Qty: 12 0RF No Action lansoprazole 30 mg capsule,delayed release(DR/EC) See Rx Instructions .ROUTE .COMPLEX Qty: 90 3RF Dose Instruction: TAKE ONE CAPSULE BY MOUTH ONCE A DAY FOR GERD Rx Instructions: TAKE ONE CAPSULE BY MOUTH ONCE A DAY FOR GERD pregabalin [Lyrica] 50 mg capsule 50 mg PO BID Qty: 60 0RF cholecalciferol (vitamin D3) 1,250 mcg (50,000 unit) capsule See Rx Instructions .ROUTE .COMPLEX Qty: 5 0RF Dose Instruction: TAKE ONE CAPSULE BY MOUTH WEEKLY Rx Instructions: TAKE ONE CAPSULE BY MOUTH WEEKLY sertraline 50 mg tablet See Rx Instructions .ROUTE .COMPLEX Qty: 90 0RF Dose Instruction: TAKE ONE TABLET BY MOUTH ONCE A DAY Rx Instructions: TAKE ONE TABLET BY MOUTH ONCE A DAY cyclobenzaprine 5 mg tablet 5 mg PO TID PRN (Reason: muscle spasm) Qty: 30 0RF lidocaine 5 % adhesive patch,medicated 1 patch topical DAILY Qty: 15 0RF Rx Instructions: leave on most painful area for up to 12 hrs albuterol sulfate 90 mcg/actuation HFA aerosol inhaler 1 inh inhalation Q4H PRN (Reason: shortness of breath or wheezing) Qty: 8.5 0RF prednisone 50 mg tablet 50 mg PO DAILY 5 Days Qty: 5 0RF doxycycline hyclate 100 mg capsule 100 mg PO BID 10 Days Qty: 20 0RF Referrals Follow up/Referrals: Kisha Wilde PA [Primary Care Provider] - See instructions Activity Restrictions/Add. Instructions Additional Instructions/Restrictions: You were evaluated in the emergency department today. You had some dilation of the ureter on the right side and also has a blood in your urine, so we feel you most likely had a kidney stone as a cause of your pain. We do not see a stone that is obvious on CT scan, and since your pain resolved, we feel you likely could have passed it. We recommend that you follow-up closely with urology. We do not have an interventional urologist at our healthcare facility, but one close option is Dr. Julien Gramajo in [place] ([facility] - [address], [address], [place] [address] - [phone]). Please make sure you drink plenty of fluids and stay orally hydrated. Try getting by with Tylenol, but you may choose to take the narcotic pain medication provided to you in the event of severe pain not controlled by these medications. Do not drive or operate heavy machinery while taking narcotic pain medication, as it can be sedating. Narcotic pain medication can be addicting and can cause constipation. Follow-up closely with your primary care provider as well. Return to the emergency department for new or worsening symptoms such as significant worsening in pain, fever greater than 100.4 ?F, intractable nausea and vomiting. Clinical Impressions Clinical Impression: Right sided abdominal pain, Hematuria Stand Alone Forms Stand Alone Forms: Work/School Release Instructions Patient Instructions: DI for Kidney Stones, DI for Acute Abdominal Pain, DI for Hematuria Print Language Print Language: Luxembour[place] Discharge ED Provider: Tiff Louis General Adult HPI General Chief complaint: Abdominal Pain Stated complaint: abd pain, vomiting Time Seen by Provider: 11/08/24 09:19 History of Present Illness HPI narrative: This patient is a 39-year-old female with a history of THC dependence, prior hysterectomy, prior cholecystectomy presenting to the emergency department for evaluation with concern for severe right lower quadrant pain radiating to her right flank. Patient reports that she was feeling fine this morning, was at work, and then was returning from a break at work just prior to arrival when she suddenly experienced severe pain that came out of nowhere. She states that it was so bad that she became lightheaded and vomited. She has never felt anything like this in the past. She denies any fevers, changes in bowel movement such as diarrhea or constipation, melena, hematochezia, dysuria, urinary frequency, hematuria, or other acute concern. Related Data Previous Rx's ?Medication ?Instructions ?Recorded lansoprazole 30 mg capsule,delayed See Rx Instructions .Route 04/11/23 release .COMPLEX #90 caps cyclobenzaprine 5 mg tablet 5 mg PO TID PRN muscle spasm #30 03/10/24 tabs lidocaine 5 % topical patch 1 patch topical DAILY #15 ea 03/10/24 cholecalciferol (vitamin D3) 1,250 See Rx Instructions .Route 04/10/24 mcg (50,000 unit) capsule .COMPLEX #5 caps pregabalin 50 mg capsule (Lyrica) 50 mg PO BID #60 caps 04/23/24 albuterol sulfate 90 mcg/actuation 1 inh inhalation Q4H PRN shortness 06/14/24 aerosol inhaler of breath or wheezing #8.5 grams doxycycline hyclate 100 mg capsule 100 mg PO BID 10 days #20 caps 06/14/24 prednisone 50 mg tablet 50 mg PO DAILY 5 days #5 tabs 06/14/24 sertraline 50 mg tablet See Rx Instructions .Route 10/10/24 .COMPLEX #90 tabs hydrocodone 5 mg-acetaminophen 325 1 tab PO Q8H PRN pain #12 tabs 11/08/24 mg tablet ondansetron 4 mg disintegrating 4 mg PO Q8H PRN nausea and 11/08/24 tablet vomiting 4 days #12 tabs Allergies Allergy/AdvReac Type Severity Reaction Status Date / Time ibuprofen (IBUPROFEN) Allergy Unknown STOMACH Verified 04/23/24 15:46 UPSET naproxen (NAPROXEN) Allergy Unknown STOMACH Verified 04/23/24 15:46 UPSET adhesive Allergy Unknown Verified 11/08/24 10:08 allergy reaction PFSH PFSH Disclaimer: The information contained in this section may have been updated after the patient was seen, as this information can be updated by other users. Medical History assisted use of drug Chronic constipation Cyclical pelvic pain Endometriosis Surgical History H/O cystostomy History of vaginal hysterectomy History of cholecystectomy Hx of wisdom tooth extraction History of surgery on arm History of endometrial ablation Hx of dilation and curettage Family History Other Diabetes Hypertension Social History Smoking Status: Current every day smoker tobacco type: cigarettes packs per day: 1 second hand exposure: Yes alcohol intake: never substance use type: marijuana current occupational status: employed Travel in the last 8 weeks: None household members: spouse housing: house 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 caffeine: Yes Have you lived/traveled outside US in past 30 days?: No Contact w/someone who lives/traveled outside US past 30 days?: No Exposure to someone with infectious disease in past 14 days?: No Do you have a fever (greater than 100.4 F or 38 C)?: No Have you tested positive for COVID-19: No Exposed to someone with COVID-19 in past 14 days?: No Do you have a sore throat?: No Do you have a cough?: No Do you have any weakness?: No Do you have any diarrhea?: No Are you experiencing any unusual bleeding?: No Do you have any muscle aches/pain?: No Do you have any abdominal pain?: Yes Are you experiencing loss of taste or smell?: No Other Medical History Have you received the Flu Vaccine for this season: Yes Have you received the Pneumonia Vaccine: No ROS Obtained: Yes All systems reviewed & no additional complaints except as documented Physical Exam General General appearance: alert Comment: Tearful, uncomfortable appearing, anxious appearing Head Head exam: atraumatic and normocephalic Eye Eye exam: Present normal appearance, PERRL and EOMI ENT ENT exam: Present normal exam, normal oropharynx, mucous membranes moist and normal external ear exam Neck Neck exam: Present normal inspection, full ROM and trachea midline; Absent tenderness Chest Chest inspection: Present normal inspection and symmetric chest wall rise; Absent tenderness Respiratory Respiratory exam: Present normal lung sounds bilaterally; Absent respiratory distress, wheezes, stridor or accessory muscle use Cardiovascular Cardiovascular exam: Present normal rhythm and tachycardia Abdominal Exam Abdominal exam: Present soft and tenderness (Right lower quadrant); Absent distention or guarding Extremities Exam Extremities exam: Present normal inspection, full ROM and normal capillary refill; Absent tenderness or edema Back Exam Back exam: Present full ROM and CVA tenderness (R) Neurological Exam Neurological exam: Present alert, oriented X3, CN II-XII intact and normal gait; Absent motor sensory deficit Psychiatric Psychiatric exam: Present anxious Skin Skin exam: Present warm and dry Medical Decision Making Medical Records Medical records reviewed: Yes I reviewed the patient's medical records. Screening: Per USPSTF and CDC recommendations, given the prevalence of disease in our region, it is our hospital?s policy to screen for HIV and viral Hepatitis for all patients aged 18 and over and those with ongoing risk factors. [place] Inquiry Pt receiving controlled substance: Yes [place] was queried for this patient: Yes Risks and benefits of using a controlled substance: were discussed with pt by me Vital Signs: 11/08/24 09:20 11/08/24 09:25 11/08/24 09:31 Temperature 98.4 F Temperature Source Oral Pulse Rate 107 H 107 H Pulse Rate [Left] 90 Respiratory Rate 21 18 22 Blood Pressure 172/146 H 132/106 H Blood Pressure [Left Arm] 172/46 H Blood Pressure Mean [Left Arm] 88 Blood Pressure Source Blood Pressure Source [Left Arm] Automatic Cuff Blood Pressure Position Blood Pressure Position [Left Arm] Sitting 02 Sat by Pulse Oximetry 99 99 98 Oxygen Delivery Method Room Air Room Air Room Air 11/08/24 10:00 11/08/24 10:56 11/08/24 11:00 Temperature Temperature Source Pulse Rate 73 62 61 Pulse Rate [Left] Respiratory Rate 22 13 20 Blood Pressure 99/65 L 111/70 117/68 Blood Pressure [Left Arm] Blood Pressure Mean [Left Arm] Blood Pressure Source Blood Pressure Source [Left Arm] Blood Pressure Position Blood Pressure Position [Left Arm] 02 Sat by Pulse Oximetry 97 98 96 Oxygen Delivery Method Room Air Room Air Room Air 11/08/24 11:30 11/08/24 12:00 11/08/24 12:19 Temperature 98.3 F Temperature Source Oral Pulse Rate 58 L 73 60 Pulse Rate [Left] Respiratory Rate 20 13 18 Blood Pressure 97/56 L 113/73 113/73 Blood Pressure [Left Arm] Blood Pressure Mean [Left Arm] Blood Pressure Source Automatic Cuff Blood Pressure Source [Left Arm] Blood Pressure Position Sitting Blood Pressure Position [Left Arm] 02 Sat by Pulse Oximetry 95 98 Oxygen Delivery Method Room Air Room Air Room Air Lab Data Lab results reviewed: Yes I reviewed the patient's lab results. Lab Results 11/08/24 09:35: WBC 11.3 H, RBC 4.71, Hgb 14.5, Hct 42.1, MCV 89.4, MCH 30.8, MCHC 34.4, RDW 13.0, Plt Count 268, MPV 9.0, Neut % (Auto) 60.9, Lymph % (Auto) 30.7, [place] % (Auto) 6.2, Eos % (Auto) 1.2, Baso % (Auto) 0.6, Neut # (Auto) 6.9, Lymph # (Auto) 3.5, [place] # (Auto) 0.7, Eos # (Auto) 0.1, Baso # (Auto) 0.1, Sodium 136, Potassium 3.9, Chloride 108 H, Carbon Dioxide 22, Anion Gap 9.9, BUN 10, Creatinine 0.80, Estimated Creat Clear 136, Estimated GFR 80, Est GFR ( Amer) 97, Glucose 114 H, Lactate 1.2, Calcium 9.2, Total Bilirubin 0.4, AST 25, ALT 21, Alkaline Phosphatase 65, C-Reactive Protein 4.5 H, Total Protein 6.6, Albumin 4.1, Globulin 2.5, Albumin/Globulin Ratio 1.6, Lipase 37, HCV Ab KESHA w/Rflx PCR Qn Negative, HIV Ag/Ab Combo Qual Negative 11/08/24 10:56: Urine Color Yellow, Urine Appearance Clear, Urine pH 6.0, Ur Specific [place] >= 1.030, Urine Protein Negative, Urine Glucose (UA) Negative, Urine Ketones Negative, Urine Blood 3+ A, Urine Nitrate Negative, Urine Bilirubin Negative, Urine Urobilinogen 0.2, Ur Leukocyte Esterase Negative, Urine RBC 5-10, Urine WBC Occasional, Ur Squamous Epith Cells Occasional, Urine Bacteria Trace, Urine Mucus Trace 11/08/24 09:35 11/08/24 09:35 Orders (Tests/Meds): ED MEDICATIONS Discontinued Medications Generic Name Dose Route Start Last Admin Trade Name Freq PRN Reason Stop Dose Admin Acetaminophen 1,000 mg 11/08/24 09:33 11/08/24 09:43 Acetaminophen 1,000mg/100ml Vial IV 11/08/24 09:34 1,000 mg ONCE ONE Administration Lactated Ringer's 1,000 mls @ 999 mls/hr 11/08/24 09:33 11/08/24 09:43 Lactated Ringer's 1000 Ml Bag IV 11/08/24 10:33 999 mls/hr .Q1H1M ONE Administration Morphine Sulfate 4 mg 11/08/24 09:33 11/08/24 09:42 Morphine 4mg/Ml Syringe IV 11/08/24 09:34 4 mg ONCE ONE Administration Ondansetron HCl 4 mg 11/08/24 09:33 11/08/24 09:44 Ondansetron 4mg/2ml Vial IV 11/08/24 09:34 4 mg ONCE ONE Administration ORDERS Category Date Time Status CT abdomen pelvis wo con Stat Cat Scan 11/08/24 09:33 Completed CRP [C-Reactive Protein] Stat Lab 11/08/24 09:35 Completed Complete Blood Count Auto Diff Stat Lab 11/08/24 09:35 Completed Comprehensive Metabolic Panel Stat Lab 11/08/24 09:35 Completed HIV Combo Stat Lab 11/08/24 09:35 Completed Hepatitis C Ab Qual. W/ RFX Stat Lab 11/08/24 09:35 Completed Lactic Acid Stat Lab 11/08/24 09:35 Completed Lipase Stat Lab 11/08/24 09:35 Completed UA [Urinalysis and Microscopic] Stat Lab 11/08/24 10:56 Completed Urine Culture Stat Micro 11/08/24 10:58 Received Medical Decision Narrative: In summary, this patient is a 39-year-old female presenting to the Emergency Department for evaluation of severe right sided flank/right lower quadrant abdominal pain that started suddenly prior to arrival. Differential diagnoses considered include but are not limited to ureterolithiasis, pyelonephritis, ovarian cyst, cystitis, appendicitis, colitis. Ruling out the most morbid conditions drove assessment. It should be noted patient's history includes obesity, THC dependence which are not at goal therapy. This complicates all aspects of care by increasing patient's risk for morbidity. I reviewed patient's past medical records and noted previous evaluations by primary care for right-sided low back pain with right-sided sciatica, and noted prior history of hysterectomy and cholecystectomy. On exam, the patient is very uncomfortable appearing, anxious appearing, tearful. Given sudden onset as well as presentation, highly suspect ureterolithiasis as potential cause, but other differentials high on the list would be appendicitis or other acute surgical intra-abdominal pathology. She is tachycardic but otherwise vitals are reassuring. Workup included CBC, CMP, lipase, urinalysis, urine culture, CT abdomen pelvis without IV contrast. Patient is given a bolus of IV fluids as well as IV morphine, Zofran, and acetaminophen for symptomatic improvement. I independently interpreted CT scan prior to the radiologist read and noted mild right-sided proximal hydronephrosis but I do not see any obvious obstructive pathology such as a stone at this time.. Please see their read for final interpretation. CT imaging not concerning for appendicitis. Labs were obtained that demonstrated very mild leukocytosis which could be leukemoid reaction in the setting of vomiting, very mildly elevated CRP that is not significantly above normal range. Normal kidney function. Urinalysis does demonstrate blood but is not overtly concerning for infection. Urine culture was sent and is pending. On reassessment, the patient's pain had resolved. She had mild hydronephrosis as well as hematuria in the setting of right flank pain/right groin pain, so I feel she likely has had a kidney stone. It is possible she passed that given I do not see it on CT or could be that she has a noncalcified stone. Ultimately, I feel she is appropriate for discharge home with outpatient follow-up with primary care and urology. She was given prescription for pain medications, strict return precautions, and instructions for supportive management. She was discharged after all questions were answered.. Critical Care Critical Care Time Critical Care Time: No
[2024-11-08] MEDS: MORPHINE 4MG/ML SYRINGE 4 MG IV (09:42)
[2024-11-08] MEDS: LACTATED RINGERS 1000ML 1,000 ML 999 ML IV (09:43)
[2024-11-08] MEDS: ACETAMINOPHEN 1,000MG/100ML VIAL 1000 MG IV (09:43)
[2024-11-08] MEDS: ONDANSETRON 4MG/2ML VIAL 4 MG IV (09:44)
[2024-11-08 09:49] LABS: Basophils # 0.1 K/mm3 (0-0.2); Basophils % 0.6 % (0.1-2.0); Eosinophils # 0.1 K/mm3 (0.0-0.4); Eosinophils % 1.2 % (0.1-12.0); Hematocrit 42.1 % (37.0-47.0); Hemoglobin 14.5 g/dL (12.2-16.2); Lymphocytes # 3.5 K/mm3 (0.7-4.5); Lymphocytes % 30.7 % (10-50); Mean Corpuscular HGB Conc 34.4 g/dL (31.8-35.4); Mean Corpuscular Hemoglobin 30.8 pg (27.0-31.2); Mean Corpuscular Volume 89.4 fl (81-99); Monocytes # 0.7 K/mm3 (0.1-1.0); Monocytes % 6.2 % (1.7-9.3); Neutrophils # 6.9 K/mm3 (1.8-7.8); Neutrophils % 60.9 % (37.0-80.0); Platelet Count 268 K/mm3 (142-424); Red Blood Count 4.71 M/mm3 (4.20-5.40); White Blood Count 11.3 K/mm3 (4.8-10.8)
[2024-11-08 09:52] LABS: Albumin Level 4.1 g/dl (3.5-5.0); Chloride 108 mmol/L (98-107); Potassium 3.9 mmoL/L (3.5-5.1); Sodium 136 mmol/L (136-145)
[2024-11-08 09:54] LABS: Blood Urea Nitrogen 10 mg/dl (7-17); Creatinine Clearance Estimated 136 mL/min (50-200); Estimated Glomerular Filt Rate 80 ml/min (>60); GFR (African American) 97 ML/MIN (>60); Lactic Acid 1.2 mmol/L (0.7-2.1)
[2024-11-08 09:55] LABS: Alanine Aminotransferase 21 U/L (12-78); Albumin/Globulin Ratio 1.6 (1.1-1.8); Alkaline Phosphatase 65 U/L (38-126); Anion Gap 9.9 mEq/L (5-15); Aspartate Amino Transferase 25 U/L (14-36); Bilirubin,Total 0.4 mg/dl (0.2-1.3); Calcium 9.2 mg/dl (8.4-10.2); Carbon Dioxide 22 mmol/L (22.0-30.0); Globulin 2.5 g/dL (1.3-3.2); Glucose 114 mg/dl (74-100); Lipase 37 U/L (23-300); Total Protein,Serum 6.6 g/dl (6.3-8.2)
[2024-11-08 10:37] LABS: C-Reactive Protein 4.5 mg/L (0-4)
[2024-11-08 10:56] LABS: HIV Combo NEGATIVE (Negative)
[2024-11-08 11:00] LABS: Microscopic, Urine URINE MICROSCOPIC (MICROSCOPIC)
[2024-11-08 11:03] LABS: Appearance,Urine CLEAR (Clear); Bilirubin,Urine Negative (Negative); Blood, Urine 3+ (Negative); Color,Urine YELLOW (Yellow); Glucose,Urine (UA) Negative (Negative); Ketones,Urine Negative (Negative); Leukocyte Esterase,Urine Negative (Negative); Nitrate,Urine Negative (Negative); Protein,Urine Negative (Negative); Specific Gravity, Urine >= 1.030 (1.005-1.030); Urobilinogen,Urine 0.2 EU/dl (0.2)
[2024-11-08 11:04] LABS: Hepatitis C Ab Qual. W/ RFX NEGATIVE (Negative)
[2024-11-08 11:12] LABS: Squamous Epithelial Cell,Urine Occasional #/hpf (0-5); WBC,Urine Occasional #/hpf (0-3)
[2024-11-08 11:13] LABS: Bacteria,Urine Trace /lpf; Mucus,Urine Trace /lpf
== END 2024-11-08 12:27 | disposition home or self-care (01) ==
PROVIDERS: Emergency Provider Emergency Medicine; PCP Physician Assistant
DX: N20.0 Calculus of kidney (principal); N13.39 Other hydronephrosis; R31.9 Hematuria, unspecified; N28.82 Megaloureter; F12.90 Cannabis use, unspecified, uncomplicated; D72.829 Elevated white blood cell count, unspecified; F17.210 Nicotine dependence, cigarettes, uncomplicated; E66.9 Obesity, unspecified; Z68.35 Body mass index [BMI] 35.0-35.9, adult; Z90.79 Acquired absence of other genital organ(s); Z90.49 Acquired absence of other specified parts of digestive tract; Z83.3 Family history of diabetes mellitus; Z82.49 Family history of ischemic heart disease and other diseases of the circulatory system; Z91.048 Other nonmedicinal substance allergy status; Z91.09 Other allergy status, other than to drugs and biological substances
CPT/HCPCS: 74176; 80053; 81001; 83605; 83690; 85025; 86140; 86803; 87086; 87389; 96361; 96374; 96375; 99285; J0131; J2270; J2405; J7120

== ENCOUNTER 2024-11-11 11:31 | Emergency (ER) | payer OTHER, SELFPAY ==
[2024-11-11 11:49] VITALS: BP 152/79; PULSE 76; RESP 17; TEMP 36.7; O2SAT 100; BMI 31.3
--- NOTE | 2024-11-11 12:04 | CT_ITS ---
FINAL REPORT TECHNIQUE: After the administration of oral and intravenous contrast, axial images were obtained through the abdomen and pelvis by computed tomography. The study was performed with techniques to keep radiation dose as low as reasonably achievable, (ALARA). Individual dose reduction techniques using automated exposure control or adjustment of mA and/or kV according to the patient's size were employed. CLINICAL HISTORY: RLQ abdominal pain, nausea and vomiting COMPARISON: 11/08/2024 FINDINGS: Abdomen: The lung bases are clear. The liver parenchyma is homogeneous. There is mild intrahepatic and extrahepatic ductal dilation. The gallbladder is surgically absent. Calcified granulomas are seen in the spleen. The pancreas and adrenal glands appear unremarkable. There is moderate right hydronephrosis and hydroureter to the level of a 4 mm obstructing stone in the right UVJ. The aorta is normal in caliber. There is no free fluid or adenopathy. Pelvis: The appendix is not identified. Bilateral tubal ligation clips are noted. The urinary bladder is unremarkable. There is no free fluid or adenopathy. IMPRESSION: 4 mm obstructing stone at the right UVJ with moderate hydronephrosis and hydroureter. Mild intrahepatic and extrahepatic ductal dilation could be related to prior cholecystectomy. Reviewed, Interpreted and Dictated by Kevin Zambrano MD Transcribed by Tracie Richardson Authenticated and [facility]
--- NOTE | 2024-11-11 12:07 | ED_ITS ---
<Statement entered by Tiff Louis DO - 11/11/24 16:42> I was consulted by the LATRELL, and we discussed the complexity of the problems being addressed. I approved the treatment and management plan for this patient's care in the emergency department, thus performing a substantive portion of the medical decision making. Patient with ureterolithiasis with failed outpatient management/pain control. Patient care signed of the oncoming provider with CHRISTAL Avila/Dr. Oakes at 1500 pending urology consultation. Tiff Louis DO Discharge Plan Disposition Patient Disposition: Home, Self-Care Condition: Good Prescriptions Prescriptions: New tamsulosin [Flomax] 0.4 mg capsule 0.4 mg PO DAILY Qty: 20 0RF No Action lansoprazole 30 mg capsule,delayed release(DR/EC) See Rx Instructions .ROUTE .COMPLEX Qty: 90 3RF Dose Instruction: TAKE ONE CAPSULE BY MOUTH ONCE A DAY FOR GERD Rx Instructions: TAKE ONE CAPSULE BY MOUTH ONCE A DAY FOR GERD pregabalin [Lyrica] 50 mg capsule 50 mg PO BID Qty: 60 0RF cholecalciferol (vitamin D3) 1,250 mcg (50,000 unit) capsule See Rx Instructions .ROUTE .COMPLEX Qty: 5 0RF Dose Instruction: TAKE ONE CAPSULE BY MOUTH WEEKLY Rx Instructions: TAKE ONE CAPSULE BY MOUTH WEEKLY sertraline 50 mg tablet See Rx Instructions .ROUTE .COMPLEX Qty: 90 0RF Dose Instruction: TAKE ONE TABLET BY MOUTH ONCE A DAY Rx Instructions: TAKE ONE TABLET BY MOUTH ONCE A DAY cyclobenzaprine 5 mg tablet 5 mg PO TID PRN (Reason: muscle spasm) Qty: 30 0RF lidocaine 5 % adhesive patch,medicated 1 patch topical DAILY Qty: 15 0RF Rx Instructions: leave on most painful area for up to 12 hrs hydrocodone-acetaminophen 5-325 mg tablet 1 tab PO Q8H PRN (Reason: pain) Qty: 12 0RF ondansetron 4 mg tablet,disintegrating 4 mg PO Q8H PRN (Reason: nausea and vomiting) 4 Days Qty: 12 0RF albuterol sulfate 90 mcg/actuation HFA aerosol inhaler 1 inh inhalation Q4H PRN (Reason: shortness of breath or wheezing) Qty: 8.5 0RF prednisone 50 mg tablet 50 mg PO DAILY 5 Days Qty: 5 0RF doxycycline hyclate 100 mg capsule 100 mg PO BID 10 Days Qty: 20 0RF Referrals Follow up/Referrals: Kisha Wilde PA [Primary Care Provider] - See instructions Cristhian Osorio MD [Referring] - See instructions Clinical Impressions Clinical Impression: Nephrolithiasis Stand Alone Forms Stand Alone Forms: Work/School Release Instructions Patient Instructions: DI for Kidney Stones Print Language Print Language: Tristanian Discharge ED Provider: Tiff Louis General Adult HPI <CHRISTAL Borja - Last Filed: 11/11/24 16:53> General Chief complaint: Abdominal Pain Stated complaint: R severe abd. pain Time Seen by Provider: 11/11/24 11:59 Mode of Arrival: Ambulatory Description of Symptoms (Recalled from ER Triage Doc. by RN): pt to the ED with right lower quadrant pain since monday. pt was recently seen in the ED and told she had kidney stones and that her pain was better initially but came back abruptly this morning. pt rates her pain a 10/10 at this time. History of Present Illness HPI narrative: 39-year-old female presents the emergency department with a several hour history of right-sided/right lower quadrant abdominal pain and episode of nausea and vomiting this morning. Patient endorses this after she got done eating some eggs and toast . Patient was seen in the emergency department on 11/08/2024 for similar complaint, with suspected urolithiasis and was treated for such, due to the hematuria noted on her urinalysis, CT abdomen pelvis performed at that time was not concerning for appendicitis, but did have some mild hydronephrosis on the right side. No CT evidence of nephrolithiasis at this time. Patient been taking medications prescribed include Zofran and [place], patient took [place] this morning with little to no relief or symptomatology, she denies any fever chills chest pain shortness of breath, denies any diarrhea, last bowel movement was yesterday, denies any real constipation, denies any urinary symptoms at this time, other past medical history consistent with prior cholecystectomy, anxiety/depression, GERD, chronic lumbar spine pain, history of tobacco dependence/THC dependence, denies any marijuana use within the last several days, does admit to chronic asthma, denies any other alcohol or drug use. Onset (ago): hour(s) Related Data Previous Rx's ?Medication ?Instructions ?Recorded lansoprazole 30 mg capsule,delayed See Rx Instructions .Route 09/05/23 release .COMPLEX #90 caps cyclobenzaprine 5 mg tablet 5 mg PO TID PRN muscle spasm #30 03/10/24 tabs lidocaine 5 % topical patch 1 patch topical DAILY #15 ea 03/10/24 cholecalciferol (vitamin D3) 1,250 See Rx Instructions .Route 04/10/24 mcg (50,000 unit) capsule .COMPLEX #5 caps pregabalin 50 mg capsule (Lyrica) 50 mg PO BID #60 caps 04/23/24 albuterol sulfate 90 mcg/actuation 1 inh inhalation Q4H PRN shortness 06/14/24 aerosol inhaler of breath or wheezing #8.5 grams doxycycline hyclate 100 mg capsule 100 mg PO BID 10 days #20 caps 06/14/24 prednisone 50 mg tablet 50 mg PO DAILY 5 days #5 tabs 06/14/24 sertraline 50 mg tablet See Rx Instructions .Route 10/10/24 .COMPLEX #90 tabs hydrocodone 5 mg-acetaminophen 325 1 tab PO Q8H PRN pain #12 tabs 11/08/24 mg tablet ondansetron 4 mg disintegrating 4 mg PO Q8H PRN nausea and 11/08/24 tablet vomiting 4 days #12 tabs tamsulosin 0.4 mg capsule (Flomax) 0.4 mg PO DAILY #20 caps 11/11/24 Allergies Allergy/AdvReac Type Severity Reaction Status Date / Time ibuprofen (IBUPROFEN) Allergy Unknown STOMACH Verified 04/23/24 15:46 UPSET naproxen (NAPROXEN) Allergy Unknown STOMACH Verified 04/23/24 15:46 UPSET adhesive Allergy Unknown Verified 11/08/24 10:08 allergy reaction [facility] <CHRISTAL Borja - Last Filed: 11/11/24 16:53> [facility] Disclaimer: The information contained in this section may have been updated after the patient was seen, as this information can be updated by other users. 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 Chronic constipation Cyclical pelvic pain Endometriosis Surgical History H/O cystostomy History of vaginal hysterectomy History of cholecystectomy Hx of wisdom tooth extraction History of surgery on arm History of endometrial ablation Hx of dilation and curettage Family History Other Diabetes Hypertension Social History Smoking Status: Current every day smoker tobacco type: cigarettes packs per day: 1 second hand exposure: Yes alcohol intake: never substance use type: marijuana current occupational status: employed Travel in the last 8 weeks: None household members: spouse housing: house 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 caffeine: Yes Have you lived/traveled outside US in past 30 days?: No Contact w/someone who lives/traveled outside US past 30 days?: No Exposure to someone with infectious disease in past 14 days?: No Do you have a fever (greater than 100.4 F or 38 C)?: No Have you tested positive for COVID-19: No Exposed to someone with COVID-19 in past 14 days?: No Do you have a sore throat?: No Do you have a cough?: No Do you have any weakness?: No Do you have any diarrhea?: No Are you experiencing any unusual bleeding?: No Do you have any muscle aches/pain?: No Do you have any abdominal pain?: Yes Are you experiencing loss of taste or smell?: No Other Medical History Have you received the Flu Vaccine for this season: Yes Have you received the Pneumonia Vaccine: No <CHRISTAL Borja - Last Filed: 11/11/24 16:53> ROS Obtained: Yes All systems reviewed & no additional complaints except as documented Physical Exam <CHRISTAL Borja - Last Filed: 11/11/24 16:53> General General appearance: alert, in no apparent distress and anxious Comment: Mildly tearful. Head Head exam: atraumatic and normocephalic Eye Eye exam: Present PERRL and EOMI ENT ENT exam: Present mucous membranes moist Neck Neck exam: Present normal inspection Chest Chest inspection: Present normal inspection and symmetric chest wall rise Respiratory Respiratory exam: Present normal lung sounds bilaterally; Absent respiratory distress Cardiovascular Cardiovascular exam: Present regular rate and normal rhythm Abdominal Exam Abdominal exam: Present soft, tenderness and tenderness at McBurney's Point; Absent Bowers's sign, ascites or mass Abdominal tenderness: Present RLQ and moderate Extremities Exam Extremities exam: Present normal inspection Neurological Exam Neurological exam: Present alert and oriented X3 Psychiatric Psychiatric exam: Present normal affect Skin Skin exam: Present warm and dry Medical Decision Making <CHRISTAL Borja - Last Filed: 11/11/24 16:53> Medical Records Medical records reviewed: Yes I reviewed the patient's medical records. Screening: Per USPSTF and CDC recommendations, given the prevalence of disease in our region, it is our hospital?s policy to screen for HIV and viral Hepatitis for all patients aged 18 and over and those with ongoing risk factors. [place] Inquiry Pt receiving controlled substance: No [place] was queried for this patient: No Vital Signs: 11/11/24 11:49 11/11/24 16:30 11/11/24 17:15 Temperature 98.1 F 97.9 F Temperature Source Oral Pulse Rate 64 65 Pulse Rate [Left Radial] 76 Respiratory Rate 17 16 Blood Pressure 122/71 114/77 Blood Pressure [Right Arm] 152/79 H Blood Pressure Mean [Right Arm] 103 Blood Pressure Source [Right Arm] Automatic Cuff Blood Pressure Position [Right Arm] Sitting 02 Sat by Pulse Oximetry 100 99 Oxygen Delivery Method Room Air Room Air Lab Data Lab results reviewed: Yes I reviewed the patient's lab results. Lab Results 11/11/24 12:02: Urine Color Yellow, Urine Appearance Clear, Urine pH 6.5, Ur Specific [place] 1.025, Urine Protein Negative, Urine Glucose (UA) Negative, Urine Ketones Negative, Urine Blood 1+ A, Urine Nitrate Negative, Urine Bilirubin Negative, Urine Urobilinogen 0.2, Ur Leukocyte Esterase Negative, Urine RBC Occasional, Urine WBC 3-5, Ur Squamous Epith Cells 3-5, Urine Bacteria Trace 11/11/24 12:05: WBC 11.7 H, RBC 4.85, Hgb 14.9, Hct 43.5, MCV 89.7, MCH 30.7, MCHC 34.3, RDW 13.3, Plt Count 308, MPV 8.9, Neut % (Auto) 48.6, Lymph % (Auto) 41.4, [place] % (Auto) 7.0, Eos % (Auto) 2.1, Baso % (Auto) 0.6, Neut # (Auto) 5.7, Lymph # (Auto) 4.8 H, [place] # (Auto) 0.8, Eos # (Auto) 0.2, Baso # (Auto) 0.1, Sodium 138, Potassium 3.4 L, Chloride 103, Carbon Dioxide 27, Anion Gap 11.4, BUN 12, Creatinine 1.00, Estimated Creat Clear 108, Estimated GFR 62, Est GFR ( Amer) 75, Glucose 101 H, Calcium 9.4, Total Bilirubin 0.3, AST 23, ALT 20, Alkaline Phosphatase 69, Total Protein 7.0, Albumin 4.2, Globulin 2.8, Albumin/Globulin Ratio 1.5, Lipase 34 11/11/24 13:18: Urine HCG, Qual Negative, Ur Barbituates Screen Negative, U Benzodiazepines Scrn Negative 11/11/24 13:22: Lactate 1.4 11/11/24 12:05 11/11/24 12:05 Orders (Tests/Meds): ED MEDICATIONS Discontinued Medications Generic Name Dose Route Start Last Admin Trade Name Freq PRN Reason Stop Dose Admin Belladonna Alkaloids 60 ml 11/11/24 16:53 11/11/24 17:07 Belladonna Alkaloids 60 Ml Ml PO 11/11/24 16:54 60 ml ONCE ONE Administration Hydromorphone HCl 0.5 mg 11/11/24 14:18 11/11/24 14:29 Hydromorphone 2mg/Ml Syringe IV 11/11/24 14:19 0.5 mg ONCE ONE Administration Iopamidol 75 ml 11/11/24 14:13 11/11/24 14:14 Iopamidol-370 (76%);100ml Bottle IV 11/11/24 14:14 75 ml ONCE ONE Administration Ketorolac Tromethamine 15 mg 11/11/24 12:05 11/11/24 12:13 Ketorolac 30mg/Ml Vial IV 11/11/24 12:06 15 mg ONCE ONE Administration Morphine Sulfate 4 mg 11/11/24 12:05 11/11/24 12:14 Morphine 4mg/Ml Syringe IV 11/11/24 12:06 4 mg ONCE ONE Administration Ondansetron HCl 4 mg 11/11/24 12:05 11/11/24 12:13 Ondansetron 4mg/2ml Vial IV 11/11/24 12:06 4 mg ONCE ONE Administration Sodium Chloride 10 ml 11/11/24 14:13 11/11/24 14:14 Sodium Chloride 0.9% 10ml Syr (Rad Only) IV 12/11/24 14:12 10 ml NEEDED PRN Administration Maintain IV Site ORDERS Category Date Time Status CT abdomen pelvis w con Stat Cat Scan 11/11/24 12:04 Completed Complete Blood Count Auto Diff Stat Lab 11/11/24 12:05 Completed Comprehensive Metabolic Panel Stat Lab 11/11/24 12:05 Completed Drug Screen,Urine Stat Lab 11/11/24 13:18 Results Lactic Acid Stat Lab 11/11/24 13:22 Completed Lipase Stat Lab 11/11/24 12:05 Completed Urinalysis and Microscopic Stat Lab 11/11/24 12:02 Completed Urine , HCG Qual. Stat Lab 11/11/24 13:18 Completed Medical Decision Narrative: 39-year-old female this emergency room with right lower quad abdominal pain, nausea and vomiting, differential diagnose include but limited to, ovarian cyst, appendicitis, nephrolithiasis, ureterolithiasis, acute UTI, pyonephritis, pain type syndrome, abnormal hyperemesis, musculoskeletal pain, constipation, bowel stretch, volvulus, diverticulitis among others. I discussed patient case with attending physician Obtain basic laboratory studies, lactate lipase urinalysis, urine drug screen, urine screen, CT and pelvis with contrast, will give 15 mg IV Toradol, 4 mg IV morphine and 4 mg IV Zofran for nausea and pain. CBC is notable for mild leukocytosis at 11.7 CMP is noted for minimal hypokalemia at 3.4, otherwise unremarkable CMP, urine hCG qualitative is negative. Was notified by nursing staff the patient is still complaining of some pain, will give 0.5 mg IV Dilaudid for pain. There is no lactic acidosis present There is 1+ hematuria noted on patient's UA Urinalysis is notable for negative leukocyte esterase, occasional RBCs, 3-5 WBCs, trace bacteria and 3-5 squamous cells. Reviewed the patient's CT abdomen pelvis with contrast along the corresponding radiologic report, there is a 4 mm obstructing stone at the right UVJ with moderate hydronephrosis and hydroureter, mild intrahepatic and extrahepatic ductal dilatation which could be related to prior cholecystectomy. Discussed the patient's case with Dr. Cristhian Osorio at approximately 4:47 PM, at [facility]. He recommends follow-up in outpatient clinic, urine strainer and Flomax for passage of stone. Reexamination of the patient at approximately 4:35 PM, patient's pain is improved, she has nausea medicine and p.o. narcotics at home which she will utilize, she will follow-up with urologist in the upcoming days. She is complaining of some GERD like symptomatology, does have history of this and takes PPI at home, will give a dose of Maalox here in the emergency department prior to departure. Return precautions given. Patient voiced understanding of the current treatment plan/discharge plan. <Tiff Louis, DO - Last Filed: 11/11/24 16:42> Vital Signs: 11/11/24 11:49 11/11/24 16:30 11/11/24 17:15 Temperature 98.1 F 97.9 F Temperature Source Oral Pulse Rate 64 65 Pulse Rate [Left Radial] 76 Respiratory Rate 17 16 Blood Pressure 122/71 114/77 Blood Pressure [Right Arm] 152/79 H Blood Pressure Mean [Right Arm] 103 Blood Pressure Source [Right Arm] Automatic Cuff Blood Pressure Position [Right Arm] Sitting 02 Sat by Pulse Oximetry 100 99 Oxygen Delivery Method Room Air Room Air Lab Data Lab Results 11/11/24 12:02: Urine Color Yellow, Urine Appearance Clear, Urine pH 6.5, Ur Specific [place] 1.025, Urine Protein Negative, Urine Glucose (UA) Negative, Urine Ketones Negative, Urine Blood 1+ A, Urine Nitrate Negative, Urine Bilirubin Negative, Urine Urobilinogen 0.2, Ur Leukocyte Esterase Negative, Urine RBC Occasional, Urine WBC 3-5, Ur Squamous Epith Cells 3-5, Urine Bacteria Trace 11/11/24 12:05: WBC 11.7 H, RBC 4.85, Hgb 14.9, Hct 43.5, MCV 89.7, MCH 30.7, MCHC 34.3, RDW 13.3, Plt Count 308, MPV 8.9, Neut % (Auto) 48.6, Lymph % (Auto) 41.4, [place] % (Auto) 7.0, Eos % (Auto) 2.1, Baso % (Auto) 0.6, Neut # (Auto) 5.7, Lymph # (Auto) 4.8 H, [place] # (Auto) 0.8, Eos # (Auto) 0.2, Baso # (Auto) 0.1, Sodium 138, Potassium 3.4 L, Chloride 103, Carbon Dioxide 27, Anion Gap 11.4, BUN 12, Creatinine 1.00, Estimated Creat Clear 108, Estimated GFR 62, Est GFR ( Amer) 75, Glucose 101 H, Calcium 9.4, Total Bilirubin 0.3, AST 23, ALT 20, Alkaline Phosphatase 69, Total Protein 7.0, Albumin 4.2, Globulin 2.8, Albumin/Globulin Ratio 1.5, Lipase 34 11/11/24 13:18: Urine HCG, Qual Negative, Ur Barbituates Screen Negative, U Benzodiazepines Scrn Negative 11/11/24 13:22: Lactate 1.4 Orders (Tests/Meds): ED MEDICATIONS Discontinued Medications Generic Name Dose Route Start Last Admin Trade Name Freq PRN Reason Stop Dose Admin Belladonna Alkaloids 60 ml 11/11/24 16:53 11/11/24 17:07 Belladonna Alkaloids 60 Ml Ml PO 11/11/24 16:54 60 ml ONCE ONE Administration Hydromorphone HCl 0.5 mg 11/11/24 14:18 11/11/24 14:29 Hydromorphone 2mg/Ml Syringe IV 11/11/24 14:19 0.5 mg ONCE ONE Administration Iopamidol 75 ml 11/11/24 14:13 11/11/24 14:14 Iopamidol-370 (76%);100ml Bottle IV 11/11/24 14:14 75 ml ONCE ONE Administration Ketorolac Tromethamine 15 mg 11/11/24 12:05 11/11/24 12:13 Ketorolac 30mg/Ml Vial IV 11/11/24 12:06 15 mg ONCE ONE Administration Morphine Sulfate 4 mg 11/11/24 12:05 11/11/24 12:14 Morphine 4mg/Ml Syringe IV 11/11/24 12:06 4 mg ONCE ONE Administration Ondansetron HCl 4 mg 11/11/24 12:05 11/11/24 12:13 Ondansetron 4mg/2ml Vial IV 11/11/24 12:06 4 mg ONCE ONE Administration Sodium Chloride 10 ml 11/11/24 14:13 11/11/24 14:14 Sodium Chloride 0.9% 10ml Syr (Rad Only) IV 12/11/24 14:12 10 ml NEEDED PRN Administration Maintain IV Site ORDERS Category Date Time Status CT abdomen pelvis w con Stat Cat Scan 11/11/24 12:04 Completed Complete Blood Count Auto Diff Stat Lab 11/11/24 12:05 Completed Comprehensive Metabolic Panel Stat Lab 11/11/24 12:05 Completed Drug Screen,Urine Stat Lab 11/11/24 13:18 Results Lactic Acid Stat Lab 11/11/24 13:22 Completed Lipase Stat Lab 11/11/24 12:05 Completed Urinalysis and Microscopic Stat Lab 11/11/24 12:02 Completed Urine , HCG Qual. Stat Lab 11/11/24 13:18 Completed <Hermelindo Oakes MD - Last Filed: 11/11/24 17:19> Vital Signs: 11/11/24 11:49 11/11/24 16:30 11/11/24 17:15 Temperature 98.1 F 97.9 F Temperature Source Oral Pulse Rate 64 65 Pulse Rate [Left Radial] 76 Respiratory Rate 17 16 Blood Pressure 122/71 114/77 Blood Pressure [Right Arm] 152/79 H Blood Pressure Mean [Right Arm] 103 Blood Pressure Source [Right Arm] Automatic Cuff Blood Pressure Position [Right Arm] Sitting 02 Sat by Pulse Oximetry 100 99 Oxygen Delivery Method Room Air Room Air Lab Data Lab Results 11/11/24 12:02: Urine Color Yellow, Urine Appearance Clear, Urine pH 6.5, Ur Specific [place] 1.025, Urine Protein Negative, Urine Glucose (UA) Negative, Urine Ketones Negative, Urine Blood 1+ A, Urine Nitrate Negative, Urine Bilirubin Negative, Urine Urobilinogen 0.2, Ur Leukocyte Esterase Negative, Urine RBC Occasional, Urine WBC 3-5, Ur Squamous Epith Cells 3-5, Urine Bacteria Trace 11/11/24 12:05: WBC 11.7 H, RBC 4.85, Hgb 14.9, Hct 43.5, MCV 89.7, MCH 30.7, MCHC 34.3, RDW 13.3, Plt Count 308, MPV 8.9, Neut % (Auto) 48.6, Lymph % (Auto) 41.4, [place] % (Auto) 7.0, Eos % (Auto) 2.1, Baso % (Auto) 0.6, Neut # (Auto) 5.7, Lymph # (Auto) 4.8 H, [place] # (Auto) 0.8, Eos # (Auto) 0.2, Baso # (Auto) 0.1, Sodium 138, Potassium 3.4 L, Chloride 103, Carbon Dioxide 27, Anion Gap 11.4, BUN 12, Creatinine 1.00, Estimated Creat Clear 108, Estimated GFR 62, Est GFR ( Amer) 75, Glucose 101 H, Calcium 9.4, Total Bilirubin 0.3, AST 23, ALT 20, Alkaline Phosphatase 69, Total Protein 7.0, Albumin 4.2, Globulin 2.8, Albumin/Globulin Ratio 1.5, Lipase 34 11/11/24 13:18: Urine HCG, Qual Negative, Ur Barbituates Screen Negative, U Benzodiazepines Scrn Negative 11/11/24 13:22: Lactate 1.4 Orders (Tests/Meds): ED MEDICATIONS Discontinued Medications Generic Name Dose Route Start Last Admin Trade Name Freq PRN Reason Stop Dose Admin Belladonna Alkaloids 60 ml 11/11/24 16:53 11/11/24 17:07 Belladonna Alkaloids 60 Ml Ml PO 11/11/24 16:54 60 ml ONCE ONE Administration Hydromorphone HCl 0.5 mg 11/11/24 14:18 11/11/24 14:29 Hydromorphone 2mg/Ml Syringe IV 11/11/24 14:19 0.5 mg ONCE ONE Administration Iopamidol 75 ml 11/11/24 14:13 11/11/24 14:14 Iopamidol-370 (76%);100ml Bottle IV 11/11/24 14:14 75 ml ONCE ONE Administration Ketorolac Tromethamine 15 mg 11/11/24 12:05 11/11/24 12:13 Ketorolac 30mg/Ml Vial IV 11/11/24 12:06 15 mg ONCE ONE Administration Morphine Sulfate 4 mg 11/11/24 12:05 11/11/24 12:14 Morphine 4mg/Ml Syringe IV 11/11/24 12:06 4 mg ONCE ONE Administration Ondansetron HCl 4 mg 11/11/24 12:05 11/11/24 12:13 Ondansetron 4mg/2ml Vial IV 11/11/24 12:06 4 mg ONCE ONE Administration Sodium Chloride 10 ml 11/11/24 14:13 11/11/24 14:14 Sodium Chloride 0.9% 10ml Syr (Rad Only) IV 12/11/24 14:12 10 ml NEEDED PRN Administration Maintain IV Site ORDERS Category Date Time Status CT abdomen pelvis w con Stat Cat Scan 11/11/24 12:04 Completed Complete Blood Count Auto Diff Stat Lab 11/11/24 12:05 Completed Comprehensive Metabolic Panel Stat Lab 11/11/24 12:05 Completed Drug Screen,Urine Stat Lab 11/11/24 13:18 Results Lactic Acid Stat Lab 11/11/24 13:22 Completed Lipase Stat Lab 11/11/24 12:05 Completed Urinalysis and Microscopic Stat Lab 11/11/24 12:02 Completed Urine , HCG Qual. Stat Lab 11/11/24 13:18 Completed Medical Decision Narrative: 39-year-old female this emergency room with right lower quad abdominal pain, nausea and vomiting, differential diagnose include but limited to, ovarian cyst, appendicitis, nephrolithiasis, ureterolithiasis, acute UTI, pyonephritis, pain type syndrome, abnormal hyperemesis, musculoskeletal pain, constipation, bowel stretch, volvulus, diverticulitis among others. I discussed patient case with attending physician Obtain basic laboratory studies, lactate lipase urinalysis, urine drug screen, urine screen, CT and pelvis with contrast, will give 15 mg IV Toradol, 4 mg IV morphine and 4 mg IV Zofran for nausea and pain. CBC is notable for mild leukocytosis at 11.7 CMP is noted for minimal hypokalemia at 3.4, otherwise unremarkable CMP, urine hCG qualitative is negative. Was notified by nursing staff the patient is still complaining of some pain, will give 0.5 mg IV Dilaudid for pain. There is no lactic acidosis present There is 1+ hematuria noted on patient's UA Urinalysis is notable for negative leukocyte esterase, occasional RBCs, 3-5 WBCs, trace bacteria and 3-5 squamous cells. Reviewed the patient's CT abdomen pelvis with contrast along the corresponding radiologic report, there is a 4 mm obstructing stone at the right UVJ with moderate hydronephrosis and hydroureter, mild intrahepatic and extrahepatic ductal dilatation which could be related to prior cholecystectomy. Discussed the patient's case with Dr. Cristhian Osorio at approximately 4:47 PM, at [facility]. He recommends follow-up in outpatient clinic, urine strainer and Flomax for passage of stone. Reexamination of the patient at approximately 4:35 PM, patient's pain is improved, she has nausea medicine and p.o. narcotics at home which she will utilize, she will follow-up with urologist in the upcoming days. She is complaining of some GERD like symptomatology, does have history of this and takes PPI at home, will give a dose of Maalox here in the emergency department prior to departure. Return precautions given. Patient voiced understanding of the current treatment plan/discharge plan. I was consulted by the LATRELL, and we discussed the complexity of the problems being addressed. I approved the treatment and management plan for this patient's care in the Emergency Department, thus performing a substantive portion of the medical decision making. Hermelindo Oakes MD Critical Care <Tiff Louis, DO - Last Filed: 11/11/24 16:42> Critical Care Time Critical Care Time: No
[2024-11-11] MEDS: ONDANSETRON 4MG/2ML VIAL 4 MG IV (12:13)
[2024-11-11] MEDS: KETOROLAC 30MG/ML VIAL 15 MG IV (12:13)
[2024-11-11] MEDS: MORPHINE 4MG/ML SYRINGE 4 MG IV (12:14)
[2024-11-11 12:17] LABS: Basophils # 0.1 K/mm3 (0-0.2); Basophils % 0.6 % (0.1-2.0); Eosinophils # 0.2 K/mm3 (0.0-0.4); Eosinophils % 2.1 % (0.1-12.0); Hematocrit 43.5 % (37.0-47.0); Hemoglobin 14.9 g/dL (12.2-16.2); Lymphocytes # 4.8 K/mm3 (0.7-4.5); Lymphocytes % 41.4 % (10-50); Mean Corpuscular HGB Conc 34.3 g/dL (31.8-35.4); Mean Corpuscular Hemoglobin 30.7 pg (27.0-31.2); Mean Corpuscular Volume 89.7 fl (81-99); Mean Platelet Volume 8.9 fl (7.4-10.4); Monocytes # 0.8 K/mm3 (0.1-1.0); Neutrophils # 5.7 K/mm3 (1.8-7.8); Neutrophils % 48.6 % (37.0-80.0); Platelet Count 308 K/mm3 (142-424); Red Blood Count 4.85 M/mm3 (4.20-5.40); Red Cell Distribution Width 13.3 % (11.5-17.5); White Blood Count 11.7 K/mm3 (4.8-10.8)
[2024-11-11 12:28] LABS: Alanine Aminotransferase 20 U/L (12-78); Albumin Level 4.2 g/dl (3.5-5.0); Albumin/Globulin Ratio 1.5 (1.1-1.8); Alkaline Phosphatase 69 U/L (38-126); Anion Gap 11.4 mEq/L (5-15); Aspartate Amino Transferase 23 U/L (14-36); Bilirubin,Total 0.3 mg/dl (0.2-1.3); Blood Urea Nitrogen 12 mg/dl (7-17); Calcium 9.4 mg/dl (8.4-10.2); Carbon Dioxide 27 mmol/L (22.0-30.0); Chloride 103 mmol/L (98-107); Creatinine Clearance Estimated 108 mL/min (50-200); Estimated Glomerular Filt Rate 62 ml/min (>60); GFR (African American) 75 ML/MIN (>60); Globulin 2.8 g/dL (1.3-3.2); Glucose 101 mg/dl (74-100); Lipase 34 U/L (23-300); Potassium 3.4 mmoL/L (3.5-5.1); Sodium 138 mmol/L (136-145)
[2024-11-11 13:33] LABS: Microscopic, Urine URINE MICROSCOPIC (MICROSCOPIC)
[2024-11-11 13:57] LABS: Urine Pregnancy, HCG Qual. Negative (Negative)
[2024-11-11 13:57] LABS: Appearance,Urine CLEAR (Clear); Bilirubin,Urine Negative (Negative); Blood, Urine 1+ (Negative); Color,Urine YELLOW (Yellow); Glucose,Urine (UA) Negative (Negative); Ketones,Urine Negative (Negative); Leukocyte Esterase,Urine Negative (Negative); Nitrate,Urine Negative (Negative); PH,Urine 6.5 (5.0-8.5); Protein,Urine Negative (Negative); Specific Gravity, Urine 1.025 (1.005-1.030); Urobilinogen,Urine 0.2 EU/dl (0.2)
[2024-11-11 14:06] LABS: Lactic Acid 1.4 mmol/L (0.7-2.1)
[2024-11-11] MEDS: SODIUM CHLORIDE 0.9% 10ML SYR (RAD ONLY) 10 ML IV (14:14)
[2024-11-11] MEDS: IOPAMIDOL-370 (76%);100ML BOTTLE 75 ML IV (14:14)
[2024-11-11 14:27] LABS: Bacteria,Urine Trace /lpf; RBC,Urine Occasional #/hpf (0-3)
[2024-11-11] MEDS: HYDROMORPHONE 2MG/ML SYRINGE 0.5 MG IV (14:29)
--- NOTE | 2024-11-11 16:03 | PC.NURSE ---
Steam Turbine Operator Jewel Gracia called [facility] for a Urology consult per CHRISTAL Avila. [facility] stated that they do not have Urology at [place] or [place]. Jewel is calling [facility] now.
--- NOTE | 2024-11-11 16:11 | PC.NURSE ---
Called [facility] for consult for 4mm obstructing stone. Info given, faxing face sheet. To call back when have provider ready for consult.
[2024-11-11 16:30] VITALS: BP 122/71; PULSE 64; O2SAT 99
--- NOTE | 2024-11-11 16:50 | PC.NURSE ---
Nash english PA o/p with at this time.
[2024-11-11] MEDS: BELLADONNA ALKALOIDS 60 ML ML PO (17:07)
[2024-11-11 17:08] LABS: Barbiturates Screen,Urine Negative ng/ml (<200)
[2024-11-11 17:09] LABS: Amphetamine/Metha Screen,Urine Negative ng/ml (<1000); Benzodiazepines Screen,Urine Negative ng/ml (<200)
[2024-11-11 17:10] LABS: Cannabinoid Screen,Urine Positive ng/ml (<50); Cocaine Screen,Urine Negative ng/ml (<300)
[2024-11-11 17:11] LABS: Methadone Screen,Urine Negative ng/ml (<300)
[2024-11-11 17:12] LABS: Opiate Screen,Urine Positive ng/ml (<300); Phencyclidine Screen,Urine Negative ng/ml (<25)
[2024-11-11 17:15] VITALS: BP 114/77; PULSE 65; RESP 16; TEMP 36.6; O2SAT 98
== END 2024-11-11 17:16 | disposition home or self-care (01) ==
PROVIDERS: Physician Assistant; Emergency Provider Emergency Medicine; PCP Physician Assistant
DX: N20.0 Calculus of kidney (principal); R10.31 Right lower quadrant pain; R11.2 Nausea with vomiting, unspecified; F17.210 Nicotine dependence, cigarettes, uncomplicated; F12.20 Cannabis dependence, uncomplicated; Z79.899 Other long term (current) drug therapy
CPT/HCPCS: 74177; 80053; 80307; 81001; 81025; 83605; 83690; 85025; 96374; 96375; 99285; J1171; J1885; J2270; J2405; Q9967

== ENCOUNTER 2025-01-28 16:11 | Emergency (ER) | payer OTHER, SELFPAY ==
--- OUTSIDE RECORDS SUMMARY | 2025-01-03 04:23 | XMS_ITS | Continuity of Care Document ---
Author Organization [facility] Phone Care Team Providers Care Mobile Architect Name Role Phone HEIKE ÁLVAREZ Admitting Chana URIAS Primary Care HEIKE ÁLVAREZ Unavailable HEIKE ÁLVAREZ Primary Attending ALLERGIES AND ADVERSE REACTIONS ALLERGIES AND ADVERSE REACTIONS Code System Allergy Substance Adverse Reaction Date Reaction (Severity) Comment Status Reported By Updated By 9916 RXNorm NAPROXEN Adverse reaction to substance stomach issues active [id number] on December 20, 2016 11:53:42 AM [facility] 5640 RXNorm IBUPROFEN Adverse reaction to substance stomach issues active [id number] on December 20, 2016 11:53:42 AM [facility] FAMILY HISTORY RELATION: Father Status: LIVING SNOMED-CT Diagnosis Age At Onset Information not available RELATION: Mother Status: LIVING SNOMED-CT Diagnosis Age At Onset [id number] Diabetes mellitus RESULTS Patient: JOSEP FLORES Date of : September [birth year] LABORATORY RESULTS Information is not available LABORATORY NARRATIVE RESULTS Information is not available RADIOLOGY RESULTS ORDER 100: MRI KNEE WITHOUT CONT RT (LOINC: 58288-7) ORDER DATE: January 01, 2025 7:22:00 PM [facility] PERFORMING LAB: [address] [id number] Final Result Date: January 01 8:56:[address] [place] [address] Name: MARK CAR Exam Date: 01/01/2025 : 1985 Age 39 years Gender: F Physician: HEIKE ÁLVAREZ Facility: [facility] Facility HSV: Outpatient Exam: MRI KNEE WITHOUT CONT RT MRI examination of the right knee obtained using multiplanar, multi-sequential images CLINICAL INDICATION: Female, 39 years old. knee pain COMPARISON: Radiograph dated November 14, 2024 Findings: LIGAMENTS AND TENDONS: Anterior and posterior cruciate ligaments are intact. Medial and lateral collateral ligaments are normal appearing. The distal quadriceps and patellar tendons are unremarkable. MENISCI: Medial and lateral menisci are intact. PATELLA: There is small amount of edema seen deep along the superior patella. There is also some mild thinning of the articular cartilage centrally along the superior patellar surface. There is no visible loose body. Patella articulates normally. The medial lateral retinaculum are intact. OSTEOCARTILAGINOUS STRUCTURES: There is normal marrow signal. PARA-OSSEOUS STRUCTURES: There is no sizable suprapatellar joint effusion. Impression: Mild chondromalacia patella with small amount of edema deep along the superior patella, may be posttraumatic. Electronically signed by: Aretha Cadena MD 01/01/2025 07:38 PM EDT Dictated By: ARETHA CADENA Transcribed By: Transcribed On: 01/01/2025 4:56 PM Electronically signed by: ARETHA CADENA 01/01/2025 Thank you for referring MARK CAR to [facility]. Legally authenticated by TAMMI CARIAS MD 2025-01-01 16:56:46 PATHOLOGY NARRATIVE RESULTS Information is not available MICROBIOLOGY RESULTS No Micro Labs/Results Exist for Patient BLOOD ADMIN RESULTS Information is not available MEDICATIONS HOME MEDICATIONS Status RXNORM NDC Medication Dose Route Frequency Dates Comments Reported By Updated By Drug Treatment Unknown DISCHARGE MEDICATIONS Status RXNORM NDC Medication Dose Route Frequency Dates Comments Physician Updated By No Discharge Medication Info rmation Available INPATIENT MEDICATIONS Status RXNORM NDC Medication Dose Route Frequency Rat e Quantity Dates Comments Physician Updated By No Inpatient Medication Info rmation Available SOCIAL HISTORY SOCIAL HISTORY SNOMED-CT Social History Element Description Effective Dates Offered Cessation Comment UpdatedBy [id number] Historical Tobacco smoking status Current Every Day Smoker Yes [id number] on December 19, 2016 2:40:31 PM [facility] SOCIAL HISTORY - Gender Sex: Female SOCIAL HISTORY - Status : status i nformation is not available Intention in Next Year: intention information is not available SOCIAL HISTORY - Sexual Behavior Sexual Orientation Gender Identity SNOMED-CT Description SNO MED -CT Description Activity Level No of Partners Partner Type UpdatedBy Information is not available HEALTH CONCERNS Problems Concern Status Health Concern problem infor mation not available. Smoking Status Status Years Used Consumed packs p er day Health Concern smoking histo ry information not available. Family History Concern Status Health Concern family histor y information not available. ENCOUNTERS ENCOUNTER INFORMATION Reason for Visit Not Specified Admission January 01, 2025 7:13:[address] [address] Discharge January 01, 2025 7:13:00 PM [facility] DISC HARGED TO HOME OR SELF CARE ENCOUNTER DIAGNOSES Notes information is not naeem ilable. Code System Diagnosis Onset Date Diagnosis information is not available. ABSTRACT DIAGNOSES Code System Diagnosis Updated By M25.561 ICD10 PAIN IN RIGHT KNEE [id number] o n January 03, 2025 8:23:27 AM [facility] M22.41 ICD10 CHONDROMALACIA PATELLAE, RIG HT KNEE [id number] on January 03, 2025 8:23:27 AM [facility] M25.561 ICD10 PAIN IN RIGHT KNEE [id number] o n January 03, 2025 8:23:27 AM [facility] CARE TEAM Care Mobile Architect Role HEIKE ÁLVAREZ Admitting D ADONAY Primary Care HEIKE ÁLVAREZ Referring HEIKE ÁLVAREZ Primary Attending CARE TEAM CARE lawn care technician Role on Team Status Start Date End Date Update d By ADONAY SIEGEL PCP normal December 31 3:13:18 PM [facility] January 01, 2025 7:13:00 PM [facility] [id number] on December 31, 2024 3:13:18 PM [facility] PREETI BURROUGHS PA-C Referring normal December 31, 2024 3:13:18 PM [facility] January 01, 2025 7:13:00 PM [facility] [id number] on December 31, 2024 3:13:18 PM [facility] PREETI BURROUGHS PA-C Attending normal December 31, 2024 3:13:18 PM [facility] January 01, 2025 7:13:00 PM [facility] [id number] on December 31, 2024 3:13:18 PM [facility] PREETI BURROUGHS PA-C Admitting normal December 31, 2024 3:13:18 PM [facility] January 01, 2025 7:13:00 PM [facility] [id number] on December 31, 2024 3:13:18 PM [facility]
[2025-01-28 16:23] VITALS: BP 133/78; PULSE 95; RESP 20; TEMP 37; O2SAT 98; BMI 29.7
--- NOTE | 2025-01-28 16:23 | ED_ITS ---
<Statement entered by Danyel Landers MD - 01/28/25 19:10> I was consulted by the LATRELL, and we discussed the complexity of the problems being addressed. I approved the treatment and management plan for this patient's care in the emergency department, thus performing a substantive portion of the medical decision making. Danyel Landers MD Discharge Plan Disposition Patient Disposition: Home, Self-Care Condition: Good Prescriptions Prescriptions: No Action lansoprazole 30 mg capsule,delayed release(DR/EC) See Rx Instructions .ROUTE .COMPLEX Qty: 90 3RF Dose Instruction: TAKE ONE CAPSULE BY MOUTH ONCE A DAY FOR GERD Rx Instructions: TAKE ONE CAPSULE BY MOUTH ONCE A DAY FOR GERD pregabalin [Lyrica] 50 mg capsule 50 mg PO BID Qty: 60 0RF cholecalciferol (vitamin D3) 1,250 mcg (50,000 unit) capsule See Rx Instructions .ROUTE .COMPLEX Qty: 5 0RF Dose Instruction: TAKE ONE CAPSULE BY MOUTH WEEKLY Rx Instructions: TAKE ONE CAPSULE BY MOUTH WEEKLY sertraline 50 mg tablet See Rx Instructions .ROUTE .COMPLEX Qty: 90 0RF Dose Instruction: TAKE ONE TABLET BY MOUTH ONCE A DAY Rx Instructions: TAKE ONE TABLET BY MOUTH ONCE A DAY cyclobenzaprine 5 mg tablet 5 mg PO TID PRN (Reason: muscle spasm) Qty: 30 0RF lidocaine 5 % adhesive patch,medicated 1 patch topical DAILY Qty: 15 0RF Rx Instructions: leave on most painful area for up to 12 hrs hydrocodone-acetaminophen 5-325 mg tablet 1 tab PO Q8H PRN (Reason: pain) Qty: 12 0RF ondansetron 4 mg tablet,disintegrating 4 mg PO Q8H PRN (Reason: nausea and vomiting) 4 Days Qty: 12 0RF tamsulosin [Flomax] 0.4 mg capsule 0.4 mg PO DAILY Qty: 20 0RF albuterol sulfate 90 mcg/actuation HFA aerosol inhaler 1 inh inhalation Q4H PRN (Reason: shortness of breath or wheezing) Qty: 8.5 0RF prednisone 50 mg tablet 50 mg PO DAILY 5 Days Qty: 5 0RF doxycycline hyclate 100 mg capsule 100 mg PO BID 10 Days Qty: 20 0RF Referrals Follow up/Referrals: Kisha Wilde PA [Primary Care Provider, Medical] - See instructions Activity Restrictions/Add. Instructions Additional Instructions/Restrictions: As we discussed please keep your wound open to air and if you must cover cover with the clean dry dressing. If you notice any redness increasing pain or drainage return to the ER. Your sutures need to come out in 7 to 10 days. You may return to PCP ED or the ER for suture removal. Clinical Impressions Clinical Impression: Laceration of right upper extremity Qualifiers: Encounter type: initial encounter Qualified Code(s): S41.111A - Laceration without foreign body of right upper arm, initial encounter Stand Alone Forms Stand Alone Forms: Work/School Release Instructions Patient Instructions: DI for Laceration Repair Print Language Print Language: Cape Verdean Discharge ED Provider: Danyel Landers General Adult HPI General Chief complaint: Wound/Laceration Stated complaint: R Hand Laceration Time Seen by Provider: 01/28/25 16:23 History of Present Illness HPI narrative: Patient presents for evaluation of a laceration of her right upper extremity. Patient locked her keys in her running vehicle. Patient attempted to break her car window with a rock and the glass shattered causing a cut on her distal right forearm. She denies any loss of motor or sensory and retains full range of motion. Related Data Previous Rx's ?Medication ?Instructions ?Recorded lansoprazole 30 mg capsule,delayed See Rx Instructions .Route 04/11/23 release .COMPLEX #90 caps cyclobenzaprine 5 mg tablet 5 mg PO TID PRN muscle spa sm #30 03/10/24 tabs lidocaine 5 % topical patch 1 patch topical DAILY #15 ea 03/10/24 cholecalciferol (vitamin D3) 1,250 See Rx Instructions .Route 04/10/24 mcg (50,000 unit) capsule .COMPLEX #5 caps pregabalin 50 mg capsule (Lyrica) 50 mg PO BID #60 cap s 04/23/24 albuterol sulfate 90 mcg/actuation 1 inh inhalation Q4 H PRN shortness 06/14/24 aerosol inhaler of breath or wheezing #8.5 g rain doxycycline hyclate 100 mg capsule 100 mg PO BID 10 da ys #20 caps 06/14/24 prednisone 50 mg tablet 50 mg PO DAILY 5 days #5 tab s 06/14/24 sertraline 50 mg tablet See Rx Instructions .Route 0 10/10/24 .COMPLEX #90 tabs hydrocodone 5 mg-acetaminophen 325 1 tab PO Q8H PRN pa in #12 tabs 11/08/24 mg tablet ondansetron 4 mg disintegrating 4 mg PO Q8H PRN nausea and 11/08/24 tablet vomiting 4 days #12 tabs tamsulosin 0.4 mg capsule (Flomax) 0.4 mg PO DAILY #20 caps 11/11/24 Allergies Allergy/AdvReac Type Severity Reaction Status Date / Time ibuprofen (IBUPROFEN) Allergy Unknown STOMACH Verified 04/23/24 15:46 UPSET naproxen (NAPROXEN) Allergy Unknown STOMACH Verified 04/23/24 15:46 UPSET adhesive Allergy Unknown Verified 11/08/24 10:08 allergy reaction PFSH PFSH Disclaimer: The information contained in this section may have been updated after the patient was seen, as this information can be updated by other users. Medical History MCC use of drug Chronic constipation Cyclical pelvic pain Endometriosis Surgical History H/O cystostomy History of vaginal hysterectomy History of cholecystectomy Hx of wisdom tooth extraction History of surgery on arm History of endometrial ablation Hx of dilation and curettage Family History Other Diabetes Hypertension Social History Smoking Status: Current every day smoker tobacco type: cigarettes packs per day: 1 second hand exposure: Yes alcohol intake: never substance use type: marijuana current occupational status: employed Travel in the last 8 weeks?: None household members: spouse housing: house 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 caffeine: Yes Have you lived/traveled outside US in past 30 days?: No Contact w/someone who lives/traveled outside US past 30 days?: No Exposure to someone with infectious disease in past 14 days?: No Do you have a fever (greater than 100.4 F or 38 C)?: No Have you tested positive for COVID-19?: No Exposed to someone with COVID-19 in past 14 days?: No Do you have a sore throat?: No Do you have a cough?: No Do you have any weakness?: No Do you have any diarrhea?: No Are you experiencing any unusual bleeding?: No Do you have any muscle aches/pain?: No Do you have any abdominal pain?: No Are you experiencing loss of taste or smell?: No Other Medical History Have you received the Flu Vaccine for this season: Yes Have you received the Pneumonia Vaccine: No ROS Obtained: Yes Systems reviewed as appropriate & no additional complaints except as documented Physical Exam General General appearance: alert and in no apparent distress Respiratory Respiratory exam: Present normal lung sounds bilaterally Cardiovascular Cardiovascular exam: Present regular rate Neurological Exam Neurological exam: Present alert and oriented X3 Medical Decision Making Medical Records Screening: Per USPSTF and CDC recommendations, given the prevalence of disease in our region, it is our hospital?s policy to screen for HIV and viral Hepatitis for all patients aged 18 and over and those with ongoing risk factors. [place] Inquiry Pt receiving controlled substance: No Vital Signs: 01/28/25 16:23 01/28/25 17:22 Temperature 98.6 F 98.8 F Temperature Source Oral Oral Pulse Rate 80 Pulse Rate [Right Brachial] 95 H Respiratory Rate 20 18 Blood Pressure 125/70 Blood Pressure [Right Arm] 133/78 Blood Pressure Mean [Right Arm] 96 Blood Pressure Source Automatic Cuff Blood Pressure Position Sitting 02 Sat by Pulse Oximetry 98 Oxygen Delivery Method Room Air Room Air Orders (Tests/Meds): ED MEDICATIONS Discontinued Medications Generic Name Dose Route Start Last Admin Trade Name Castilloq PRN Reason Stop Dose Admin Lidocaine/Epinephrine 10 ml 01/28/25 16:24 01/28/25 16:27 Lidocaine 1% W/Epi 1:100,000 20ml Vial SQ 01/28/25 16:25 10 ml ONCE ONE Administration Tetanus/Reduced Diphtheria/Acell Pertussis 0.5 ml 01/28/25 16:24 01/28/25 16:29 Tet/Diphth/Pert-Adult 0.5ml Syringe IM 01/28/25 16:25 0.5 ml .ONCE ONE Administration Medical Decision Narrative: In summary patient is a 39-year-old female who presents to the emergency department for evaluation of right forearm laceration. Patient is hemodynamically stable upon arrival, afebrile. Physical exam is remarkable for a irregular laceration on the radial side of her distal right forearm. There is no visible glass or foreign body. Patient retains motor and sensory to the fingertips has full range of motion.. Differential diagnosis includes simple superficial laceration versus complex deep. Initial workup was considered however patient has no loss of motor or sensory thus initial workup deferred. Initial interventions include Tdap. Confirming full motor and sensory to the fingertips intact patient was then anesthetized with 10 cc of lidocaine infiltrated subcutaneously. Wound was explored and irrigated extensively. No foreign body was found. Deep structures were intact. Wound was then closed in a primary fashion with 12 4.0 nylon sutures in an interrupted fashion. Patient given wound care instructions and strict return precautions. Patient advised to follow-up in 7 to 10 days to have her sutures removed with PCP [facility] or the ER. Procedures Laceration Laceration 1: Site: upper extremity Side (If applicable): right Size (cm): 6 Description: irregular Depth: simple, single layer Local Anesthetic: lidocaine 1% and with epi Amount of anesthesia used (mL): 10 Pre-repair: wound explored, irrigated extensively and deep structures intact Skin layer closed with: nylon Size (cm): 4-0 Number of sutures: 12 Technique: simple, interrupted Critical Care Critical Care Time Critical Care Time: No
[2025-01-28] MEDS: LIDOCAINE 1% W/EPI 1:100,000 20ML VIAL 10 ML SQ (16:27)
--- OUTSIDE RECORDS SUMMARY | 2025-01-28 16:27 | XMS_ITS | Clinical Summary ---
Author Organization [facility] Address [address] [place] [address] Care Team Providers Care Rattan Worker Name Role Phone Jonel Kat TILE PROFESSIONAL Primary Care Provider [phone] Allergies Active Allergy Reactions Criticality Noted Date Comments Nsaids Other - please docum ent in the comment field Low 09/01/2016 Causes stomach bleeding Medications lansoprazole (Prevacid) [address] capsule Take 1 capsule by mouth daily before breakfast. 10/26/2016 Active sertraline (Zoloft) 50 MG tablet Take 1 tablet by mouth daily. 11/14/2024 Active pregabalin (Lyrica) 50 MG capsule Take 1 capsule by mouth 2 (two) times a day. 04/23/2024 Active tamsulosin (Flomax) 0.4 MG 24 hr capsule Take 1 capsule by mouth daily. 11/14/2024 Active cyclobenzaprine (Flexeril) 10 MG tablet Take 1 tablet by mouth 3 (three) times a day as needed. Active Encounters Date Type Department Care Team Description 11/28/2024 9:17 AM EDT Anesthesia Event [facility] Operating Room [address] [place] [address] Juaquin Arnold MD 11/28/2024 9:10 AM EDT - 11/28/2024 10:50 AM EDT Surgery [facility] Operating Room [address] [place] [address] Chris Garcia MD URETEROSCOPY [93990 (CPT )] 11/28/2024 6:33 AM EDT - 11/28/2024 10:56 AM EDT Hospital Encounter [facility] Operating Room [address] [place] [address] Chris Garcia MD Ureteral stone (Primary Dx) Discharge Disposition: Home or Self Care 11/28/2024 Telephone [facility] Urology [address] [place] [address] Christina Stewart LPN 11/28/2024 Telephone [facility] Urology [address], [address] [place] [address] Asael Canseco MD 11/28/2024 Travel 11/21/2024 1:45 PM EDT Consult Medical Office Building Urology [facility] [address] [facility], [address] [place] [address] Marga Valentin APRN Kidney stones (Primary Dx) 11/21/2024 Telephone [facility] Urology [address] [place] [address] Chris Garcia MD 11/21/2024 Travel 11/11/2024 Orders Only External Location [address] [place] [address] Provider, External 11/08/2024 Orders Only External Location [address] [place] [address] Provider, External from Last 3 Months Family History Medical History Relation Name Comments Cardiac disorder Father Stroke Father Arthritis Other 1 Diabetes Other 2 Relation Name Status Comments Father Other 1 Other 2 Social History Tobacco Use Types Packs/Day Years Used Date Smoking Tobacco: Every Day Cigarettes Smokeless Tobacco: Never Tobacco Cessation:Ready to Q uit: Not Asked; Counseling Given: Not Answered Alcohol Use Standard Drinks/Week Comments No 0 (1 standard drink = 0.6 oz pur e alcohol) PHQ-2 Answer Date Recorded Patient Health Questionnaire-2 Score 0 11/21/2024 PHQ-9 Answer Date Recorded Patient Health Questionnaire-9 Score 0 11/21/2024 Comments Unknown Sex and Gender Information Value Date Recorded Sex Assigned at Not on file Legal Sex Female 7:27 PM EDT Gender Identity Not on file Sexual Orientation Not on file Last Filed Vital Signs Vital Sign Reading Time Taken Comments Blood Pressure 120/68 11/28/2024 10:45 AM EDT Pulse 60 11/28/2024 10:45 AM EDT Temperature 36.3 C (97.4 F) 11/28/2024 10:45 AM EDT Respiratory Rate 11 11/28/2024 10:45 AM EDT Oxygen Saturation 98% 11/28/2024 10:45 AM EDT Inhaled Oxygen Concentration - - Weight 92.2 kg (203 lb 4.2 oz) 11/28/2024 7:40 A M EDT Height 170.2 cm (5' 7 ) 11/28/2024 7:40 AM EDT Body Mass Index 31.84 11/28/2024 7:40 AM EDT Plan of Treatment Upcoming Encounters Date Type Department Care Team (Late st Contact Info) Description 03/03/2025 12:00 PM EDT Appointment [facility] Ultrasound [address] [place] [address] 03/03/2025 1:50 PM EDT Office Visit [facility] [address] [place] [address] Olga Last PA [address] [place] [address] Health Maintenance Due Date Last Done Comments [facility]-HIV Screening 1985 [facility]-Hepatitis C Screening 1985 [facility]-/Child/Adol SDOH Screenings 1985 [facility]-Varicella Vaccines (1 of 2 - 13+ 2-dose series) 1998 HPV Vaccines (1 - 3-dose series) 2000 [facility]- SDOH Screenings 2003 [facility]-Adult SDOH Screenings 2003 [facility]-Hepatitis B Vaccines (1 of 3 - 19+ 3-dose series) 2004 [facility]-Pneumococcal Vaccine: Pediatrics (0 to 5 Years) and At-Risk Patients (6 to 49 Years) (1 of 2 - PCV) 2004 [id number]-[id number]-65 Vaccine (2 - 2023- season) 2024 08/26/2021 [facility]-Depression Screening 11/21/2025 11/21/2024, 11/05 [facility]-DTaP,Tdap,and Td Vaccines (3 - Td or Tdap) 05/16/2034 05/16/2024, 12/02/2014 [facility]-Zoster Vaccines (1 of 2) 2035 [facility]-Influenza Vaccine Completed 05/16/2024 , 05/24/2023, 06/22/2022, Additional history exists [facility]-Obesity Intervention Completed 11/21/2024 [facility]-HIB Vaccines Aged Out No longer e ligible based on patient's age to complete this topic [facility]-Hepatitis A Vaccines Aged Out No longer eligible based on patient's age to complete this topic [facility]-IPV Vaccines Aged Out No longer e ligible based on patient's age to complete this topic [facility]-Rotavirus Vaccines Aged Out No lo nger eligible based on patient's age to complete this topic Medical Devices Implanted Type Area Scoop Operator Device Identifier Shelf Expiration Date Model / Serial / Lot Stent Ureteral Double Pigtail Pos 5fr 24cm - [id number] Implanted:Qty: 1 on 11/28/2024 by Chris Garcia MD at [facility] Right: [id number] 04/03/2026 [id number] / / [id number] Procedures Procedure Name Priority Date/Time Associated Diagnosis Comments FL LESS THAN 1 HOUR (NON-REPORTABLE) Routine 11/28/2024 10:02 AM EDT OXYGEN THERAPY Routine 11/28/2024 9:56 AM EDT PB ANESTHESIA PLACEHOLDER Routine 11/28/2024 9:30 AM EDT IA AN ELECTIVE SUPRAGLOTTIC AIRWAY Routine 11/28/2024 9:30 AM EDT CYSTOSCOPY, WITH URETERAL STENT INSERTION OR REMOVAL 11/28/2024 9:05 AM EDT Calculus of kidney CYSTOSCOPY, WITH RETROGRADE PYELOGRAM 11/28/2024 9:05 AM EDT Calculus of kidney IA CYSTO/URETERO/PYELOSC OPY, DX 11/28/2024 9:05 AM EDT Calculus of kidney URINE CULTURE Routine 11/21/2024 2:29 PM EDT [address] [facility] OUTSIDE IMAGES 11/11/2024 2:[address] [facility] OUTSIDE IMAGES 11/08/2024 9:39 AM EDT from Last 3 Months Results * FL Less than 1 Hour Intraoperative (11/28/2024 10:02 AM EDT) Narrative IMAGING - 11/28/2024 10:04 AM EDT Images were obtained for surgical purposes. See Chris Garcia's surgical note in the patient's chart for the findings. us Chris Garcia MD IMG FLUOROSCOPY PROCEDURES Final Result IMAGING * IA AN ELECTIVE SUPRAGLOTTIC AIRWAY, PB ANESTHESIA PLACEHOLDER (11/28/2024 9:30 AM EDT) Narrative Juaquin Arnold MD - 11/28/2024 9:30 AM EDT Juaquin Arnold MD 11/28/2024 9:39 AM Airway Date/Time: 11/28/2024 9:30 AM Reason: elective Airway not difficult General Information and Staff Patient location during procedure: OR Anesthesiologist: Juaquin Arnold MD Performed: Anesthesiologist Patient Condition Indications for airway management: anesthesia Patient position: sniffing Final Airway Details Final airway type: LMA LMA Type: normal Additional Comments Atraumatic, dentition unchanged Juaquin Arnold MD ANESTHESIA ORDERABLES Final Res ult * Urine Culture - Clinic Collect (11/21/2024 2:29 PM EDT) Culture <10,000 CFU/mL Mixed urogenital, fecal, or skin verenice present. 11/22/2024 2:56 PM EDT [facility] Urine Urine specimen obtained by clean catch procedure / Unknown Non-blood Collection / Unknown 11/21/2024 2:29 PM EDT 11/21/2024 4:51 PM EDT Marga Valentin TILE PROFESSIONAL LAB MICROBIOLOGY - GENERAL ORDERABLES Final Result [facility] [address] [place] [address] * CT [facility] OUTSIDE IMAGES (11/11/2024 2:10 PM EDT) Only the most recent of2 resultswithin the time period is included. Anatomical Region Laterality Modality Computed Tomogra phy 11/11/2024 2:10 PM EDT us External Provider IMG CT PROCEDURES Final Result from Last 3 Months Insurance [facility] Care Teams Rattan Worker Relationship Specialty Start Date End Date Jonel Kat APRN [address] [place] [address] [place] [id number] PCP - General 12/18/20
--- OUTSIDE RECORDS SUMMARY | 2025-01-28 16:27 | XMS_ITS | Data Portability ---
Author Organization [facility] [employer] [place] - MSE Address [address] [place] [address] Assessment No assessment recorded. Plan of Treatment Reminders Order Date Submit Date Provider Last Modified By Organization Details Last Modified Time Details Appointments FOLLOW UP 2024 03:00P Baylee Wilde PA-C Not available Not available Not available Lab urinalysi s, dipstick [address], [address] [place] [address], [phone], 09/05/2024 10:55:28 culture, urine 2024 025 [facility], [facility] [place], [address], 09/07/2024 04:07:07 unlisted lab - toxassure flex 19, [id number] 2024 025 [facility] [address] [place], [address], 08/11/2024 10:06:39 Referral urologist referral - STAT 2024 025 [facility], [address] , [place], [address], 11/27/2024 08:47:23 orthopedi c surgeon referral - first available appt 2024 025 [facility], [address], [place], [address], 11/21/2024 14:31:07 Procedures None recorded. Surgeries None recorded. Imaging None recorded. Medication Orders Medrol (Librado) 4 mg tablets in a dose pack 2024 025 [facility], [address] [place] [address], [id number], 01/27/2025 16:18:03 lidocaine 5 % topical patch 2024 025 [facility], [address] [place] [address], [id number], 01/27/2025 16:18:04 pregabali n 75 mg capsule 2024 025 [facility], [address] [place] [address], [id number], 01/27/2025 16:12:59 ketorolac 60 mg/2 mL intramusc ular solution 2024 025 Not available 01/07/2025 11:40:51 ketorolac 10 mg tablet 2024 025 [facility], [address] [place] [address], [id number], 01/07/2025 11:46:10 sertralin e 50 mg tablet 2024 025 [facility], [address] [place] [address], [id number], 01/27/2025 15:22:47 cyclobenz aprine 10 mg tablet 2024 025 [facility], [address] [place] [address], [id number], 10/24/2024 16:37:33 cyclobenz aprine 10 mg tablet 2024 025 [facility], [address] [place] [address] [place], [id number], 09/05/2024 11:03:19 levofloxa cm 500 mg tablet 2024 025 [facility], [address] [place] [address], [place], [place], [id number], 10/24/2024 08:44:30 Pyridium 200 mg tablet 2024 025 [facility], [address] [place] [address] [place], [id number], 10/24/2024 08:44:39 amoxicill in 875 mg tablet 2024 025 [facility], [address] [place] [address], [place], [id number], 09/05/2024 10:33:39 Lyrica 75 mg capsule 2024 025 [facility], [address] [place] [address] [place], [id number], 08/08/2024 10:37:48 Patient TargetsNo targets recorded. Patient Instructions Encounter Date Encounter Id Patient Instructions Last Modified By Organization Details Last Modified Time 08/08/2024 [id number] body mass index: care instructions [email or web address] Not available 08/08/2024 11:39:13 learning about healthy weight [email or web address] Not available 08/08/2024 11:39:13 11/14/2024 [id number] kidney stone: care instructions [email or web address] Not available 11/14/2024 11:13:08 learning about diet for kidney stone prevention [email or web address] Not available 11/14/2024 11:13:08 Reason for Referral Orthopedic Surgeon Referral for Pain of right knee joint first available appt Referring Physician: Kisha Wilde [facility], Encounter Date: 10/24/2024 Urologist Referral for Kidne y stone STAT Referring Physician: Kisha Wilde [facility], Encounter Date: 11/14/2024 Results Created Date Observation Date Name Description Value Unit Range Abnormal Flag Note LastModifiedBy Organization Detail LastModifiedTime 08/08/19 25 08/11/2024 TOXAS SURE FLEX 19, UR summary report FINAL ===== ===== ===== ===== ===== ===== ===== ===== ===== ===== ===== ===== ===== === Cannivelisse binoi ds, MS, Ur RFX ToxAs sure Flex 19, Ur ===== ===== ===== ===== ===== ===== ===== ===== ===== ===== ===== ===== ===== === Test Resul t Flag Units Drug Prese nt Carbo xy-TH C 1227 ng/mg creat Carbo xy-TH C is a metab olite of tetra hydro canna binol (THC) . Sourc e of THC is most commo nly herba l marij uana or marij uana- based produ cts, but THC is also prese nt in a sched uled presc ripti on medic ation . Trace amoun ts of THC can be prese nt in hemp and canna bidio l (CBD) produ cts. This test is not inten ded to disti nguis h betwe en delta -9-te trahy droca nnabi nol, the predo minan t form of THC in most herba l or marij uana- based produ cts, and delta -8-te trahy droca nnabi nol. ===== ===== ===== ===== ===== ===== ===== ===== ===== ===== ===== ===== ===== === Test Resul t Flag Units Ref Range Creat inine 62 mg/dL >=20 ===== ===== ===== ===== ===== ===== ===== ===== ===== ===== ===== ===== ===== === Decla red Medic ation s: Medic ation list was not provi ded. ===== ===== ===== ===== ===== ===== ===== ===== ===== ===== ===== ===== ===== === For clini sil consu ltati on, pleas e call . ===== ===== ===== ===== ===== ===== ===== ===== ===== ===== ===== ===== ===== === Not Available [facility] ([facility]) [address] [place], [address], 08/11/2024 10:06:39 08/08/19 25 08/11/2024 TOXAS SURE FLEX 19, UR pdf . Not Available [facility] ([facility]) [address] [place], [address], 08/11/2024 10:06:39 08/08/1908/11/2024 TOXAS SURE FLEX 19, UR creatinine 62 mg/dL REFER ENCE RANGE : Ref Range >=20 Not Available [facility] ([facility]) [address] [place], [address], 08/11/2024 10:06:39 08/08/19 25 08/11/2024 TOXAS SURE FLEX 19, UR amphetamines ia NEGATI VE NG/mL cutoff :300 Not Available [facility] ([facility]) [address] [place], [address], 08/11/2024 10:06:39 08/08/19 25 08/11/2024 TOXAS SURE FLEX 19, UR benzodiazepi binh NEGATI VE Not Available [facility] ([facility]) [address] [place], [address], 08/11/2024 10:06:39 08/08/19 25 08/11/2024 TOXAS SURE FLEX 19, UR diazepam NOT DETECT ED NG/mg _crea t Not Available [facility] ([facility]) [address] [place], [address], 08/11/2024 10:06:39 08/08/19 25 08/11/2024 TOXAS SURE FLEX 19, UR desmethyldia zepam NOT DETECT ED NG/mg _crea t Not Available [facility] ([facility]) [address] [place], [address], 08/11/2024 10:06:39 08/08/19 25 08/11/2024 TOXAS SURE FLEX 19, UR oxazepam NOT DETECT ED NG/mg _crea t Not Available [facility] ([facility]) [address] [place], [address], 08/11/2024 10:06:39 08/08/19 25 08/11/2024 TOXAS SURE FLEX 19, UR temazepam NOT DETECT ED NG/mg _crea t Expec roger metab olism of benzo diaze pine class drugs : Paren t Drug Detec roger Metab olite s ----- ----- - ----- ----- ----- ----- Diaze kaela: Desme thyld iazep am, Temaz epam, Oxaze kaela Chlor diaze poxid e: Desme thyld iazep am, Oxaze kaela Clora zepat e: Desme thyld iazep am, Oxaze kaela Halaz epam: Desme thyld iazep am, Oxaze kaela Temaz epam: Oxaze kaela Oxaze kaela: None Not Available [facility] ([facility]) [address] [place], [address], 08/11/2024 10:06:39 08/08/19 25 08/11/2024 TOXAS SURE FLEX 19, UR alprazolam NOT DETECT ED NG/mg _crea t Not Available [facility] ([facility]) [address] [place], [address], 08/11/2024 10:06:39 08/08/19 25 08/11/2024 TOXAS SURE FLEX 19, UR alpha-hydrox yalprazolam NOT DETECT ED NG/mg _crea t Not Available [facility] ([facility]) [address] [place], [address], 08/11/2024 10:06:39 08/08/19 25 08/11/2024 TOXAS SURE FLEX 19, UR desalkylflur azepam NOT DETECT ED NG/mg _crea t Not Available [facility] ([facility]) [address] [place], [address], 08/11/2024 10:06:39 08/08/19 25 08/11/2024 TOXAS SURE FLEX 19, UR lorazepam NOT DETECT ED NG/mg _crea t Not Available [facility] ([facility]) [address] [place], [address], 08/11/2024 10:06:39 08/08/19 25 08/11/2024 TOXAS SURE FLEX 19, UR alpha-hydrox ytriazolam NOT DETECT ED NG/mg _crea t Not Available [facility] ([facility]) [address] [place], [address], 08/11/2024 10:06:39 08/08/19 25 08/11/2024 TOXAS SURE FLEX 19, UR clonazepam NOT DETECT ED NG/mg _crea t Not Available [facility] ([facility]) [address] [place], [address], 08/11/2024 10:06:39 08/08/19 25 08/11/2024 TOXAS SURE FLEX 19, UR 7-aminoclona zepam NOT DETECT ED NG/mg _crea t Not Available [facility] ([facility]) [address] [place], [address], 08/11/2024 10:06:39 08/08/19 25 08/11/2024 TOXAS SURE FLEX 19, UR midazolam NOT DETECT ED NG/mg _crea t Not Available [facility] ([facility]) [address] [place], [address], 08/11/2024 10:06:39 08/08/19 25 08/11/2024 TOXAS SURE FLEX 19, UR alpha-hydrox ymidazolam NOT DETECT ED NG/mg _crea t Not Available [facility] ([facility]) [address] [place], [address], 08/11/2024 10:06:39 08/08/19 25 08/11/2024 TOXAS SURE FLEX 19, UR flunitrazepa m NOT DETECT ED NG/mg _crea t Not Available [facility] ([facility]) [address] [place], [address], 08/11/2024 10:06:39 08/08/19 25 08/11/2024 TOXAS SURE FLEX 19, UR desmethylflu nitrazepam NOT DETECT ED NG/mg _crea t Not Available [facility] ([facility]) [address] [place], [address], 08/11/2024 10:06:39 08/08/19 25 08/11/2024 TOXAS SURE FLEX 19, UR cocaine metabolite ia NEGATI VE NG/mL cutoff :150 Not Available [facility] ([facility]) [address] [place], [address], 08/11/2024 10:06:39 08/08/19 25 08/11/2024 TOXAS SURE FLEX 19, UR ethanol biomarkers ia NEGATI VE NG/mL cutoff :500 Not Available [facility] ([facility]) [address] [place], [address], 08/11/2024 10:06:39 08/08/19 25 08/11/2024 TOXAS SURE FLEX 19, UR cannabinoids ia COMMEN T NG/mL cutoff :20 Furth er testi ng indic ated Not Available [facility] ([facility]) [address] [place], [address], 08/11/2024 10:06:39 08/08/19 25 08/11/2024 TOXAS SURE FLEX 19, UR 6-acetylmorp lizette ia NEGATI VE NG/mL cutoff :10 Not Available [facility] ([facility]) [address] [place], [address], 08/11/2024 10:06:39 08/08/19 25 08/11/2024 TOXAS SURE FLEX 19, UR opiate class ia NEGATI VE NG/mL cutoff :100 Not Available [facility] ([facility]) [address] [place], [address], 08/11/2024 10:06:39 08/08/19 25 08/11/2024 TOXAS SURE FLEX 19, UR oxycodone class ia NEGATI VE NG/mL cutoff :100 Not Available [facility] ([facility]) [address] [place], [address], 08/11/2024 10:06:39 08/08/19 25 08/11/2024 TOXAS SURE FLEX 19, UR methadone ia NEGATI VE NG/mL cutoff :100 Not Available [facility] ([facility]) [address] [place], [address], 08/11/2024 10:06:39 08/08/19 25 08/11/2024 TOXAS SURE FLEX 19, UR methadone mtb ia NEGATI VE NG/mL cutoff :100 Not Available [facility] ([facility]) [address] [place], [address], 08/11/2024 10:06:39 08/08/19 25 08/11/2024 TOXAS SURE FLEX 19, UR buprenorphin e ia NEGATI VE NG/mL cutoff :5.0 Not Available [facility] ([facility]) [address] [place], [address], 08/11/2024 10:06:39 08/08/19 25 08/11/2024 TOXAS SURE FLEX 19, UR fentanyl ia NEGATI VE NG/mL cutoff :2.0 Not Available [facility] ([facility]) [address] [place], [address], 08/11/2024 10:06:39 08/08/19 25 08/11/2024 TOXAS SURE FLEX 19, UR tapentadol ia NEGATI VE NG/mL cutoff :200 Not Available [facility] ([facility]) [address] [place], [address], 08/11/2024 10:06:39 08/08/19 25 08/11/2024 TOXAS SURE FLEX 19, UR propoxyphene ia NEGATI VE NG/mL cutoff :300 Not Available [facility] ([facility]) [address] [place], [address], 08/11/2024 10:06:39 08/08/19 25 08/11/2024 TOXAS SURE FLEX 19, UR tramadol ia NEGATI VE NG/mL cutoff :200 Not Available [facility] ([facility]) [address] [place], [address], 08/11/2024 10:06:39 08/08/19 25 08/11/2024 TOXAS SURE FLEX 19, UR methylphenid ate ia NEGATI VE NG/mL cutoff :100 Not Available [facility] ([facility]) [address] [place], [address], 08/11/2024 10:06:39 08/08/19 25 08/11/2024 TOXAS SURE FLEX 19, UR barbiturates ia NEGATI VE NG/mL cutoff :200 Not Available [facility] ([facility]) [address] [place], [address], 08/11/2024 10:06:39 08/08/19 25 08/11/2024 TOXAS SURE FLEX 19, UR phencyclidin e ia NEGATI VE NG/mL cutoff :25 Not Available [facility] ([facility]) [address] [place], [address], 08/11/2024 10:06:39 08/08/19 25 08/11/2024 TOXAS SURE FLEX 19, UR gabapentin ia NEGATI VE ug/mL cutoff :1.0 Not Available [facility] ([facility]) [address] [place], [address], 08/11/2024 10:06:39 08/08/19 25 08/11/2024 TOXAS SURE FLEX 19, UR anticonvulsa nts NEGATI VE Not Available [facility] ([facility]) [address] [place], [address], 08/11/2024 10:06:39 08/08/19 25 08/11/2024 TOXAS SURE FLEX 19, UR pregabalin NOT DETECT ED Not Available [facility] ([facility]) [address] [place], [address], 08/11/2024 10:06:39 08/08/19 25 08/11/2024 TOXAS SURE FLEX 19, UR carisoprodol ia NEGATI VE NG/mL cutoff :100 Not Available [facility] ([facility]) [address] [place], [address], 08/11/2024 10:06:39 08/08/19 25 08/11/2024 SHERRI DALAL DS, MS, UR RFX cannabinoids +POSIT FATOU+ Not Available [facility] ([facility]) [address], [place], [place], [address], 08/11/2024 10:06:40 08/08/19 25 08/11/2024 SHERRI DALAL DS, MS, UR RFX carboxy-THC 1227 NG/mg _crea t This test is not inten ded to disti ngbucky h betwe en the metab olite s of delta -9-te trahy droca nnabi nol, the predo minan t form of THC in most herba l or marij uana- based produ cts, and delta -8-te trahy droca nnabi nol, a psych oacti ve compo und gener ally synth esize d from other sherri dalal ds. Not Available [facility] ([facility]) [address], [place], [place], [address], 08/11/2024 10:06:40 09/05/19 25 09/07/2024 URINE CULTU RE, KATE NE urine culture, routine Final report Not Available [facility] ([facility]) [address], [place], [place], [address], 09/07/2024 04:07:07 09/05/19 25 09/07/2024 URINE CULTU RE, KATE NE result 1 No growth Not Available [facility] ([facility]) [address], [place], [place], [address], 09/07/2024 04:07:07 09/05/19 25 09/05/2024 urina lysis , dipst ick Leukocytes Negati ve Not Available [facility] [address] [facility], [place], [address], 09/05/2024 10:34:28 09/05/19 25 09/05/2024 urina lysis , dipst ick Nitrite negati ve Not Available [address], [place], [address], 09/05/2024 10:34:28 09/05/19 25 09/05/2024 urina lysis , dipst ick Urobilinogen .2 Not Available [address], [place], [address], 09/05/2024 10:34:28 09/05/19 25 09/05/2024 urina lysis , dipst ick Protein Negati ve Not Available [address], [place], [address], 09/05/2024 10:34:28 09/05/19 25 09/05/2024 urina lysis , dipst ick pH 6.0 Not Available [address], [place], [address], 09/05/2024 10:34:28 09/05/19 25 09/05/2024 urina lysis , dipst ick Blood Non-He molyze d: Trace Not Available [address], [address], 09/05/2024 10:34:28 09/05/19 25 09/05/2024 urina lysis , dipst ick Specific [place] 1.025 Not Available [address], [address], 09/05/2024 10:34:28 09/05/19 25 09/05/2024 urina lysis , dipst ick Ketone Negati ve Not Available [address], [address], 09/05/2024 10:34:28 09/05/19 25 09/05/2024 urina lysis , dipst ick Bilirubin Negati ve Not Available [address], [address], 09/05/2024 10:34:28 09/05/19 25 09/05/2024 urina lysis , dipst ick Glucose Negati ve Not Available [address], [address], 09/05/2024 10:34:28 09/05/19 25 09/05/2024 urina lysis , dipst ick Appearance Clear Not Available [address], [address], 09/05/2024 10:34:28 09/05/19 25 09/05/2024 urina lysis , dipst ick Color Dark Yellow Not Available [address], [address], 09/05/2024 10:34:28 Result Notes None recorded. Problems Name Problem SNOMED Code Status Onset Date Resolution Date Notes Provider Name and Address Organization Details Recorded Time Neck pain 72380789 Active 2023 CHRISTAL Villegas [address] [place] [address], [phone], [employer] 5 14:17:18 Cervical disc disorder with radiculop athy 282594069 Active 2023 CHRISTAL Villegas [address] [place] [address], [address], [employer] 5 14:17:04 Depressiv e disorder 08530726 Active 2023 CHRISTAL Villegas [address] [place] [address], [address], [employer] 4 11:14:18 Acute right otitis media 590018997 Completed 202410/24/2024 CHRISTAL Villegas [address] [place] [address], [address] 8, [employer] 5 14:17:10 Acute urinary tract infection 363221404 Completed 202410/24/2024 CHRISTAL Villegas [address] [place] [address], [address] 8, [employer] 5 14:17:14 Spasm of back muscles 627862309 Active 2024 CHRISTAL Villegas [address] [place] [address], [address] 8, [employer] 5 14:17:22 Pain of right knee joint 380287212919 100 Active 2024 CHRISTAL Villegas [address] [place] [address], [address] 8, [employer] 5 14:17:20 Kidney stone 07458498 Active 2024 CHRISTAL Villegas [address] [place] [address], [address], [employer] 5 10:54:38 Disorder of right sciatic nerve 103732526709 102 Active 2024 CHRISTAL Villegas [address] [place] [address], [address] 8, [employer] 5 15:50:22 Problem Notes None recorded. Procedures Surgical History Date Name Laterality Status Provider Name and Address Organization Details Recorded Time 07/10/20 Date of Last Pap Smear completed [employer] 10/24/2024 08:20:46 Hysterectomy completed [employer] [facility] 05/16/2024 12:59:56 Endometrial Ablation completed [employer] 05/16/2024 12:59:57 Gallbladder Surgery completed [employer] 05/16/2024 12:59:57 Endometrial Biopsy completed [employer] 05/16/2024 12:59:57 Dilation and Curettage completed [employer] 05/16/2024 13:03:45 Imaging Results None recorded. Procedure Notes None recorded. Medical Equipment None Reported. Allergies Allergen ID Allergen Name Allergen Category Reaction Reaction Severity Criticality Documentation Date Start Date Code Code System Note Provider Name and Address Organization Details Recorded Time 13301 aspirin medicatio n other Not available Not available 05/16/2024 1191 [facility] 12:59:54 27840 adhesive environme nt,medica tion rash Not available Not available 05/16/2024 49004 UNK [facility] 13:00:26 Medications Name Sig Start Date Stop Date Status Note LastModified by Organization Details LastModified Time cyclobenzap rine 10 mg tablet Take 1 tablet 3 times a day by oral route as directed for 30 days, for muscle spasm. active Not Available Not Available No t Available methocarbam ol 500 mg tablet 05/15 completed Not Available Not Available Not Available doxycycline hyclate 100 mg capsule 08/08 completed Not Available Not Available Not Available clindamycin HCl 300 mg capsule 05/15 completed Not Available Not Available Not Available oxybutynin chloride ER 10 mg tablet,exte nded release 24 hr TAKE 1 TABLET BY MOUTH ONCE A DAY FOR 10 DAYS. DO not crush, chew, OR split 01/27 completed Not Available Not Available Not Available hydrocodone 5 mg-acetamin ophen 325 mg tablet TAKE 1 TABLET BY MOUTH EVERY 8 HOURS NEEDED FOR PAIN 11/14 completed Not Available Not Available Not Available phenazopyri dine 200 mg tablet Take 1 tablet 3 times a day by oral route as needed for 3 days. 10/24 completed Not Available Not Available Not Available Medrol (Librado) 4 mg tablets in a dose pack Take 1 dose pk every day by oral route as directed for 6 days, for neck pain. 2024 active Not Available Not Available Not Avai lable metronidazo le 250 mg tablet 05/15 completed Not Available Not Available Not Available ciprofloxac in 500 mg tablet 05/15 completed Not Available Not Available Not Available ketorolac 10 mg tablet TAKE ONE TABLET BY MOUTH EVERY SIX HOURS FOR FIVE DAYS 01/07 completed Not Available Not Available Not Available amoxicillin 875 mg tablet Take 1 tablet every 12 hours by oral route as directed for 10 days. 09/05 completed Not Available Not Available Not Available tamsulosin 0.4 mg capsule TAKE 1 CAPSULE BY MOUTH EVERY DAY 01/27 completed Not Available Not Available Not Available dicyclomine 20 mg tablet 05/15 completed Not Available Not Available Not Available lansoprazol e 30 mg capsule,del ayed release TAKE ONE CAPSULE BY MOUTH ONCE A DAY FOR GERD active Not Available Not Available No t Available prednisone 50 mg tablet 08/08 completed Not Available Not Available Not Available lidocaine 5 % topical patch APPLY 1 PATCH BY TOPICAL ROUTE ONCE DAILY (MAY WEAR UP TO 12HOURS.) 2024 active Not Available Not Available Not Avai lable docusate sodium 100 mg capsule 05/15 completed Not Available Not Available Not Available levofloxaci n 500 mg tablet Take 1 tablet every 24 hours by oral route as directed for 7 days. 10/24 completed Not Available Not Available Not Available albuterol sulfate HFA 90 mcg/actuati on aerosol inhaler 08/08 completed Not Available Not Available Not Available ketorolac 60 mg/2 mL intramuscul ar solution Inject 2 mL by intramusc ular route. 01/07 completed Not Available Not Available Not Available ondansetron 4 mg disintegrat ing tablet DISSOLVE 1 tablet ON THE TONGUE EVERY 8 HOURS NEEDED FOR NAUSEA AND VOMITING FOR 4 DAYS 01/27 completed Not Available Not Available Not Available sertraline 50 mg tablet TAKE ONE TABLET BY MOUTH ONCE a DAY FOR DEPRESSIO N 01/27 completed Not Available Not Available Not Available dicyclomine 10 mg capsule 05/15 completed Not Available Not Available Not Available amoxicillin 875 mg-potassiu m clavulanate 125 mg tablet 05/15 completed Not Available Not Available Not Available oxycodone 5 mg tablet TAKE 1 TABLET BY MOUTH EVERY 6 HOURS NEEDED FOR SEVERE pain FOR UP TO 3 DAYS 01/07 completed Not Available Not Available Not Available cyclobenzap rine 5 mg tablet 05/15 completed Not Available Not Available Not Available pregabalin 50 mg capsule 08/08 completed Not Available Not Available Not Available pregabalin 75 mg capsule TAKE ONE CAPSULE BY MOUTH 2 TIMES A DAY 2024 active Not Available Not Available Not Avai lable cholecalcif kendy (vitamin D3) 1,250 mcg (50,000 unit) capsule 01/27 completed Not Available Not Available Not Available Vraylar 1.5 mg capsule 05/15 completed Not Available Not Available Not Available Vitals Date Recorded Body weight Body mass index (BMI) Body height Oxygen saturation Oxygen saturation in Arterial blood by Pulse oximetry Heart rate Systolic blood pressure Diastolic blood pressure Provider Name and Address Organization Details Last Updated DateTime 5 95730.5 7 g 30.8 kg/m2 170.81 cm 96 % 96 % 75 /min 109 mm[Hg] 73 mm[Hg] [employer] 5 10:11:38 Date Recorded Body height Body mass index (BMI) Body weight Oxygen saturation Oxygen saturation in Arterial blood by Pulse oximetry Heart rate Body temperature Systolic blood pressure Diastolic blood pressure Provider Name and Address Organization Details Last Updated DateTime 5 170.81 cm 31.3 kg/m2 95616.5 g 96 % 96 % 82 /min 98 [degF] 104 mm[Hg] 70 mm[Hg] [employer] 5 10:35:48 Date Recorded Body height Body mass index (BMI) Body weight Heart rate Oxygen saturation Oxygen saturation in Arterial blood by Pulse oximetry Body temperature Systolic blood pressure Diastolic blood pressure Provider Name and Address Organization Details Last Updated DateTime 5 170.81 cm 31.8 kg/m2 16394.7 2 g 80 /min 96 % 96 % 98.2 [degF] 120 mm[Hg] 80 mm[Hg] [employer] 5 08:19:03 Date Recorded Body height Body mass index (BMI) Body weight Heart rate Oxygen saturation Oxygen saturation in Arterial blood by Pulse oximetry Body temperature Systolic blood pressure Diastolic blood pressure Provider Name and Address Organization Details Last Updated DateTime 5 170.81 cm 32.5 kg/m2 03591.5 1 g 87 /min 98 % 98 % 98.7 [degF] 134 mm[Hg] 87 mm[Hg] Malaika Sampson [email or web address] 5 10:16:09 Date Recorded Body height Body mass index (BMI) Body weight Oxygen saturation Oxygen saturation in Arterial blood by Pulse oximetry Heart rate Body temperature Systolic blood pressure Diastolic blood pressure Provider Name and Address Organization Details Last Updated DateTime 5 170.81 cm 30.3 kg/m2 21995.5 1 g 98 % 98 % 84 /min 98.5 [degF] 124 mm[Hg] 80 mm[Hg] Jayne Garcia [email or web address] 15:17:09 Social History Question Answer Notes LastModified by Organizat ion Details LastModified Time Tobacco Smoking Status Current Every Day Smoker [facility] 05/16/2024 12:59:56 Do You Have An Advance Directive? No Information not available 05/16/2024 Is Your Home Air Conditioned? Yes Information not available 05/16/2024 If You Are , What Was Your Level Of Alcohol Consumption Prior To ? None Information not available 05/16/2024 Do You Wear A Helmet When Biking? No Information not available 05/16/2024 Are You Blind Or Do You Have Difficulty Seeing? No Information not available 05/16/2024 What Is Your Level Of Caffeine Consumption? Moderate Information not available 05/16/2024 What Type Of Operational Trainer Do You Use? None Information not available 05/16/2024 In The 14 Days Before Symptom Onset, Have You Had Close Contact With A Laboratory-confir med COVID-19 While That Case Was Ill? No Information not available 05/16/2024 In The 14 Days Before Symptom Onset, Have You Had Close Contact With A Person Who Is Under Investigation For COVID-19 While That Person Was Ill? No Information not available 05/16/2024 Have You Been To An Area Known To Be High Risk For COVID-19? No Information not available 05/16/2024 Are You Deaf Or Do You Have Serious Difficulty Hearing? No Information not available 05/16/2024 What Type Of Diet Are You Following? REGULAR Information not available 05/16/2024 Who Is Your Employer? [employer] Information not available 05/16/2024 How Many Days Of Moderate To Strenuous Exercise, Like A Brisk Walk, Did You Do In The Last 7 Days? 3 Information not available 05/16/2024 Have There Been Any Changes To Your Family Or Social Situation? No Information no t available 05/16/2024 Are There Any Guns Present In Your Home? Yes Information not available 05/16/2024 Which Of Your Hands Is Dominant? Right Information not available 05/16/2024 What Is Your Home Situation? Other Information not available 05/16/2024 Do You Have A Medical Power Of Saddle Mechanic? No Information not available 05/16/2024 What Was The Date Of Your Most Recent Tobacco Screening? 01/27/2025 Information not available 01/27/2025 Do You Have Any Pets? Yes Information not available 05/16/2024 Do You Use Protection During Sex? No Information not available 05/16/2024 What Is Your Relationship Status? Information not available 05/16/2024 Have You Repeated Any Grades? Yes Information not available 05/16/2024 Do You Use Your Seat Belt Or Car Seat Routinely? Yes Information not available 05/16/2024 Are You Sexually Active? Yes Information not available 05/16/2024 Do You Have Any Siblings? 5 Information not available 05/16/2024 Do You Have Smoke And Carbon Monoxide Detectors In Your Home? Yes Information not available 05/16/2024 At What Age Did You Start Smoking Tobacco? 17 Information not available 05/16/2024 Are You Passively Exposed To Smoke? Yes Information no t available 05/16/2024 Are There Any Smokers In Your House? Yes Information not available 05/16/2024 How Much Tobacco Do You Smoke? 1 PPD Information not available 05/16/2024 Do You Participate In Social Media? Yes Information not available 08/08/2024 What Types Of Sporting Activities Do You Participate In? Walking Information not available 05/16/2024 Do You Use Sunscreen Routinely? No Information not available 05/16/2024 Has Tobacco Cessation Counseling Been Provided? Yes Information not available 05/16/2024 On What Date Was Tobacco Cessation Counseling Provided? 01/27/2025 Information not available 01/27/2025 How Many Years Have You Smoked Tobacco? 20 Information not available 05/16/2024 Have You Recently Traveled Abroad? No Information not available 05/16/2024 Do You Have Difficulty Walking Or Climbing Stairs? No Information not available 05/16/2024 Are You Currently In School? No Information not available 05/16/2024 What Contraceptive Method Was Reported At Start Of This Visit? Female Sterilization Information not available 09/05/2024 Do You Have Any Dietary Restrictions? No Information not available 05/16/2024 Sex: Female Functional Status Question Answer Note LastModified by Organizat ion Details LastModified Time Do you use any illicit or recreational drugs? No Information not available 05/16/2024 Do you or have you ever used any other forms of tobacco or nicotine? No Information not available 05/16/2024 What is your level of alcohol consumption? None Information not available 05/16/2024 Are you currently employed? Yes Information not available 05/16/2024 Do you have transportation difficulties? No Information not available 08/08/2024 Are you able to walk? YESWOREST Information not available 05/16/2024 Do you have difficulty doing errands alone? No Information not available 05/16/2024 Are you able to care for yourself? Yes Information n ot available 05/16/2024 Do you have difficulty dressing or bathing? No Information not available 05/16/2024 What is your exercise level? Occasional Information not available 05/16/2024 Mental Status Question Answer Note LastModified by Organizat ion Details LastModified Time Do you feel stressed (tense, restless, nervous, or anxious, or unable to sleep at night)? LL1858-2 Information not available 08/08/2024 Do you have difficulty concentrating, remembering or making decisions? Yes Information no t available 05/16/2024 Are you or have you been involved with bullying? No Information not available 05/16/2024 Family History Relationship Description Onset Age of this Age Resolved Age Notes LastModified by Organization Details LastModified Time Mother Asthma Not available 05/2024 12:59:54 Mother Anxiety disorder Not available 2023 12:59:54 Mother Depressive disorder Not available 2023 12:59:54 Mother Arthritis Not available 05/16/2024 12:59:54 Mother Hypertensive disorder Not available 2023 12:59:54 Mother Heart disease Not available 2023 12:59:54 Brother Depressive disorder Not available 2023 12:59:54 Sister Asthma Not available 05/2024 12:59:54 Sister Depressive disorder Not available 2023 12:59:54 Medical History Condition Response Coronary Artery Disease N Other N Gout N Blood Diseases N Kidney Stones N Hyperthyroidism N Blood Transfusion N Breast Cancer N Emergency room visit since last appointm ent. N Lung Disease N COPD N Depression Y Hypothyroidism N Dermatologic Disorders N Defects or Inherited Disease N Developmental or Behavioral Disorders N Breast Problem N Difficulty Swallowing N Anesthesia Complications N History of STI N Anxiety Disorder Y Meniere's disease N Autoimmune disease N Muscle, Joint, or Bone Problems N Vision or Eye Problems N Arthritis N Infertility N Polyps N Mental Disorder N Congenital Anomalies N Acid Reflux (GERD) Y Cancer N Stroke N Neurologic/Epilepsy N Endometriosis N Bladder or Kidney Problems N High Cholesterol N Liver Disease N Organ Transplant N Psychiatric/Mental Health Condition N Dialysis N Headaches Y Fibromyalgia N Schizophrenia N Kidney Disease N Allergies/Hayfever N Heart Problems N Ear or Hearing Problems N Hospitalizations N Learning Disorder N Artificial Joints N Thyroid Problems N GI Problems N Acne N ADD/ADHD N Eating Disorder N Anemia N Constipation N Mental Illness N Diabetes N Ovarian Cancer N Bedwetting N Hepatitis/Liver Disease N Tuberculosis N Eczema N Abuse/Domestic Violence N Diverticulitis N Asthma N Trauma/Violence N Substance Abuse N Reflux/GERD N Depression/ depression N Hepatitis N Heart Disease N Pulmonary Embolism N Tourette Syndrome N Chronic Ear Infections N Pre-Eclampsia N Hypertension N Chicken Pox N Autism Spectrum Disorder (ASD) N Osteoporosis N Thrombophilias N Gynecological History Statement/Question Response Menses Monthly N Abnormal Pap N Date of Last Pap Smear 07/10/2023 Current Control Method Hysterectom y Most Recent Mammogram Age at First Child 18 Obstetrics History GPAL:G 3 P 0 2 1 2 Type Value Multiple Births 0 Full Term 0 Induced 0 Spontaneous 1 Premature 2 Living 2 Ectopics 0 Total 3 Immunizations Vaccine Type Date Status Note Provider Nam e and Address Organization Details Recorded Time Influenza, split virus, trivalent, PF 4 completed CHRISTAL Villegas [address] [place] [address], [phone], [employer] 05/16/2024 16:13:50 Tdap 4 completed CHRISTAL Villegas [address] [place] [address], [phone], [employer] 05/16/2024 16:13:50 Influenza, split virus, quadrivalent, preservative 6 completed Jayne Vice null, [employer] 08/08/2024 10:11:19 Influenza, split virus, quadrivalent, preservative 9 completed Jayne Vice null, [employer] 08/08/2024 10:11:19 COVID-19, mRNA, LNP-S, PF, 30 mcg/0.3 mL dose, umberto-sucrose 2 completed Jayne Vice null, [employer] 08/08/2024 10:11:19 Tdap 5 completed Jayne Vice null, [employer] 08/08/2024 10:11:19 Influenza, split virus, trivalent, preservative 2 completed Jayne Vice null, [employer] 08/08/2024 10:11:19 Influenza, split virus, trivalent, preservative 7 completed Jayne Vice null, [employer] 08/08/2024 10:11:19 Influenza, split virus, quadrivalent, PF 7 completed Jayne Vice null, [employer] 08/08/2024 10:11:19 Influenza, split virus, quadrivalent, PF 3 completed Jayne Vice null, [employer] 08/08/2024 10:11:19 Influenza, split virus, quadrivalent, PF 1 completed Jayne Vice null, [employer] 08/08/2024 10:11:19 Influenza, split virus, quadrivalent, PF 2 completed Jayne Vice null, [employer] 08/08/2024 10:11:19 Influenza, split virus, quadrivalent, PF 0 completed Jayne Vice null, [employer] 08/08/2024 10:11:19 Influenza, split virus, quadrivalent, PF 8 completed Jayne Vice null, [employer] 08/08/2024 10:11:19 Past Encounters Encounter ID Performer Location Encounter Start Date Encounter Closed Date Diagnosis/Indication Diagnosis SNOMED-CT Code Diagnosis ICD10 Code Diagnosis Note [id number] CHRISTAL Villegas [address] [address] 05/16/2024 12:50:39 05/16/2024 13:59:42 Administration of influenza vaccine 25571789 Z23 Neck pain 95462179 M54.2 Cervical d isc disorder with radiculopathy 505133218 M50.10 [id number] reviewed today Administra tion of diphtheria, pertussis, and tetanus vaccine 602299948 Z23 Depressive disorder 3548 9007 F32.A [id number] CHRISTAL Villegas [address] [address] 08/08/2024 09:55:13 08/08/2024 10:37:24 Long-term drug therapy 991886401 Z79.899 Acute righ t otitis media 453728222 H66.91 Cervical d isc disorder with radiculopathy 109694942 M50.10 Body mass index 30+ - obesity 049926799 Z68.30 [id number] Kisha Wilde [address] [address] 09/05/2024 10:13:54 09/05/2024 11:06:46 Low back pain 828196544 M54.50 Acute urin sraah tract infection 042126155 N39.0 Spasm of back muscles 20 2765147 M62.830 Cervical d isc disorder with radiculopathy 350904768 M50.10 [id number] Kisha Wilde [address] [address] 10/24/2024 08:00:45 10/24/2024 08:47:48 Pain of right knee joint 0794495944 93350 M25.561 Cervical d isc disorder with radiculopathy 304693756 M50.10 [id number] Kisha Wilde [address] [address] 11/14/2024 10:03:16 11/14/2024 11:39:31 Kidney stone 04436562 N20.0 reviewed ER recordsTor adol IM & POContinue FLomax, increase fluidsRefe r to urology for possible extraction Depressive disorder 3548 9007 F32.A [id number] Kisha Wilde [address] [address] 01/27/2025 14:30:07 01/27/2025 15:48:19 Disorder of right sciatic nerve 8188703976 29994 M54.31 Cervical d isc disorder with radiculopathy 160171385 M50.10 Health Concerns Section Related Observation LastModified by Organization Detai ls LastModified Time None Recorded Concern Status LastModified by Organization Details LastModified Time None Recorded Advance Directives Directive N: Payers Insurance Date Sequence Insurance Name Policy Number Policy Schafer Covered Member ID Schafer Member ID Guarantor Name 01/26/2025 1 [employer] [facility] (MEDICAID HMO) Dipika Moore [id number] Dipika Garzon Notes Date Note Type Note Provider Name and Address Organization Details Recorded Time 08/08/2024 text/html Right ear pain X 2-3 days. No fever.History of cervical radiculopathy. CHRISTAL Villegas [address] [place], [address], [employer]. 08/08/2024 11:39:24 09/05/2024 text/html Low back pain, dysuria, frequency X 3 days. No fever. No nausea or vomiting. CHRISTAL Villegas [address] [place], [address], [employer] 09/05/2024 17:39:48 10/24/2024 text/html Patient presents for followup. Overall doing well. States that she is having right knee pain. States it makes grinding noises and hurts. Does not yet give out or get stuck, but is feeling progressively worse with time.Neck pain seems to be mostly better with meds. CHRISTAL Villegas [address] [place], [address], [employer] 10/24/2024 16:35:57 11/14/2024 text/html Patient presents for followup. Had severe RLQ pain last Monday. Thought she had appendicitis. Went to ER. States she was told her kidney was a little enlarged, thought she had likely passed a kidney stone but stone was not visible on CT. Began having severe pain again Monday - went back to ER. Told she has a 4 mm obstructing stone on the right. Given Flomax. Still having severe pain. CHRISTAL Villegas [address] [place], [address], [employer] 11/14/2024 11:14:05 01/27/2025 text/html Patient presents for followup.History cervical disc disorder and needs refills on Lyrica which helps manage pain.Has flare of right sided sciatica and requests refills on Lidoderm patches CHRISTAL Villegas [address] [place], [address], [facility] [employer] 01/27/2025 17:41:26 OBGyn Episode No OBEpisode recorded.
--- OUTSIDE RECORDS SUMMARY | 2025-01-28 16:27 | XMS_ITS | Continuity of Care Document ---
Author Organization [place] - [facility], [facility] Address [address] [place] [address] Assessment No assessment recorded. Plan of Treatment Reminders Order Date Submit Date Provider Last Modified By Organization Details Last Modified Time Details Appointments FOLLOW UP 2024 03:00P M Kisha Wilde PA-C Not available Not available Not available Lab None recorded. Referral None recorded. Procedures None recorded. Surgeries None recorded. Imaging None recorded. Medication Orders Medrol (Librado) 4 mg tablets in a dose pack 2024 025 [facility], [address] [place] [address], [id number], 01/27/2025 16:18:03 lidocaine 5 % topical patch 2024 025 [facility], [address] [place] [address], [id number], 01/27/2025 16:18:04 pregabali n 75 mg capsule 2024 025 [facility], [address] [place] [address], [id number], 01/27/2025 16:12:59 Patient TargetsNo targets recorded. Patient InstructionsNo instructions recorded. Reason for Referral None Reported. Problems Name Problem SNOMED Code Status Onset Date Resolution Date Notes Provider Name and Address Organization Details Recorded Time Neck pain 35980286 Active 2023 CHRISTAL Villegas [address] [place] [address], [address], [employer] 5 14:17:18 Cervical disc disorder with radiculop athy 444862990 Active 2023 CHRISTAL Villegas [address] [place] [address], [address], [place] [employer] 5 14:17:04 Depressiv e disorder 43601880 Active 2023 CHRISTAL Villegas [address] [place] [address], [address], [place] [employer] 4 11:14:18 Acute right otitis media 414001003 Completed 202410/24/2024 CHRISTAL Villegas [address] [place] [address], [address], [employer] 5 14:17:10 Acute urinary tract infection 952416721 Completed 202410/24/2024 CHRISTAL Villegas [address] [place] [address], [address], [employer] 5 14:17:14 Spasm of back muscles 169666633 Active 2024 CHRISTAL Villegas [address] [place] [address], [address], [employer] 5 14:17:22 Pain of right knee joint 044331089722 100 Active 2024 CHRISTAL Villegas [address] [place] [address], [address], [employer] 5 14:17:20 Kidney stone 58718786 Active 2024 CHRISTAL Villegas [address] [place] [address], [address], [employer] 5 10:54:38 Disorder of right sciatic nerve 768885541961 102 Active 2024 CHRISTAL Villegas [address] [place] [address], [address], [place] [email or web address] 15:50:22 Problem Notes None recorded. Procedures Surgical History Date Name Laterality Status Provider Name and Address Organization Details Recorded Time 07/10/20 Date of Last Pap Smear completed [employer]. 10/24/2024 08:20:46 Hysterectomy completed [employer] [facility]. 05/16/2024 12:59:56 Endometrial Ablation completed [employer]. 05/16/2024 12:59:57 Gallbladder Surgery completed [employer]. 05/16/2024 12:59:57 Endometrial Biopsy completed [employer]. 05/16/2024 12:59:57 Dilation and Curettage completed [employer]. 05/16/2024 13:03:45 Imaging Results None recorded. Procedure Notes None recorded. Medical Equipment None Reported. Allergies Allergen ID Allergen Name Allergen Category Reaction Reaction Severity Criticality Documentation Date Start Date Code Code System Note Provider Name and Address Organization Details Recorded Time 59421 aspirin medicatio n other Not available Not available 05/16/2024 1191 [employer]. 12:59:54 47922 adhesive environme nt,medica tion rash Not available Not available 05/16/2024 91665 UNK [employer]. 13:00:26 Medications Name Sig Start Date Stop [...] Available Not Available Vitals Date Recorded Body height Body mass index (BMI) Body weight Oxygen saturation Oxygen saturation in Arterial blood by Pulse oximetry Heart rate Body temperature Systolic blood pressure Diastolic blood pressure Provider Name and Address Organization Details Last Updated DateTime 5 170.81 cm 30.3 kg/m2 56657.5 1 g 98 % 98 % 84 /min 98.5 [degF] 124 mm[Hg] 80 mm[Hg] Jayne Garcia [email or web address] 15:17:09 Social History Question Answer Notes LastModified by Organizat ion Details LastModified Time Tobacco Smoking Status Current Every Day Smoker Jayne reinoso [email or web address] 05/16/2024 12:59:56 Do You Have An Advance [...] Information not available 05/16/2024 What Type Of General Operations Manager Do You Use? None Information not available [...] Do You Have A Medical Power Of Senior Telecommunications Technician? No Information not available 05/16/2024 What Was [...] anxious, or unable to sleep at night)? [id number] Information not available 08/08/2024 Do you have [...] History Condition Response Coronary Artery Disease N Gout N Other N Blood Diseases N Kidney Stones N Hyperthyroidism N Breast Cancer N Blood Transfusion N Emergency room visit since last appointm ent. N Hypothyroidism N Lung Disease N Dermatologic Disorders N Depression Y COPD N Defects or Inherited Disease N Developmental or Behavioral Disorders N Breast Problem N Difficulty Swallowing N Anesthesia Complications N History of STI N Meniere's disease N Anxiety Disorder Y Muscle, Joint, or Bone Problems N Autoimmune disease N Vision or Eye Problems N Arthritis N Polyps N Infertility N Mental Disorder N Congenital Anomalies N Acid Reflux (GERD) Y Cancer N Stroke N Neurologic/Epilepsy N Endometriosis N Bladder or Kidney Problems N High Cholesterol N Liver Disease N Organ Transplant N Psychiatric/Mental Health Condition N Fibromyalgia N Dialysis N Schizophrenia N Headaches Y Kidney Disease N Allergies/Hayfever N Heart Problems N Ear or Hearing Problems N Hospitalizations N Learning Disorder N Artificial Joints N Thyroid Problems N GI Problems N Acne N ADD/ADHD N Eating Disorder N Anemia N Constipation N Mental Illness N Ovarian Cancer N Diabetes N Bedwetting N Hepatitis/Liver Disease N Tuberculosis N Eczema N Diverticulitis N Abuse/Domestic Violence N Asthma N Trauma/Violence N Substance Abuse [...] virus, trivalent, PF 4 completed CHRISTAL Villegas [address] [place] [address], [phone], [employer] 05/16/2024 16:13:50 Tdap 4 completed CHRISTAL Villegas [address] [place] [address], [phone], [employer] 05/16/2024 16:13:50 Influenza, split virus, quadrivalent, preservative 6 completed Jayne Vice null, [employer] 08/08/2024 10:11:19 Influenza, split virus, quadrivalent, preservative 9 completed Jayne Vice null, [employer] 08/08/2024 10:11:19 COVID-19, mRNA, LNP-S, PF, 30 mcg/0.3 mL dose, umberto-sucrose 2 completed Jayne Vice null, [employer] 08/08/2024 10:11:19 Tdap 5 completed Jayne Vice null, [employer] 08/08/2024 10:11:19 Influenza, split virus, trivalent, preservative 2 completed Jayne Vice null, [employer] 08/08/2024 10:11:19 Influenza, split virus, trivalent, preservative 7 completed Jayne Vice null, [employer] 08/08/2024 10:11:19 Influenza, split virus, quadrivalent, PF 7 completed Jayne Vice null, [employer] 08/08/2024 10:11:19 Influenza, split virus, quadrivalent, PF 3 completed Jayne Vice null, [employer] 08/08/2024 10:11:19 Influenza, split virus, quadrivalent, PF 1 completed Jayne Vice null, [employer] 08/08/2024 10:11:19 Influenza, split virus, quadrivalent, PF 2 completed Jayne Vice null, [employer] 08/08/2024 10:11:19 Influenza, split virus, quadrivalent, PF 0 completed Jayne Vice null, [employer] 08/08/2024 10:11:19 Influenza, split virus, quadrivalent, PF 8 completed Jayne Vice null, [employer] 08/08/2024 10:11:19 Past Encounters Encounter ID Performer Location Encounter Start Date Encounter Closed Date Diagnosis/Indication Diagnosis SNOMED-CT Code Diagnosis ICD10 Code Diagnosis Note [id number] CHRISTAL Villegas [facility] [address] [place] [address] 01/27/2025 14:30:07 01/27/2025 15:48:19 Disorder of right sciatic nerve 3756369880 61384 M54.31 Cervical d isc disorder with radiculopathy 799581900 M50.10 Health Concerns Section Related Observation LastModified by Organization Detai ls LastModified Time None Recorded Concern Status LastModified by Organization Details LastModified Time None Recorded Payers Encounter Date Sequence Insurance Name Policy Number Policy Schafer Covered Member ID Schafer Member ID Guarantor Name 01/27/2025 1 [facility] (MEDICAID HMO) Dipika Garzon [id number] Dipika Garzon Notes Date Note Type Note Provider Name and Address Organization Details Recorded Time 01/27/2025 text/html Patient presents for followup.Histor y cervical disc disorder and needs refills on Lyrica which helps manage pain.Has flare of right sided sciatica and requests refills on Lidoderm patches CHRISTAL Villegas [address] [place] [address], [place], [address], [facility] [place] [employer] 01/27/2025 17:41:26 OBGyn Episode No OBEpisode recorded.
--- OUTSIDE RECORDS SUMMARY | 2025-01-28 16:27 | XMS_ITS | Encounter Summary ---
Author Organization Healthcare Address [address] [place] [address] Care Team Providers Care Hop Farmer Name Role Phone Jonel Kat APRN Primary Care Provider +1- [phone] Encounter Details Date Type Department Care Team (Late st Contact Info) Description 10/09/2015 Orders Only External Location [address] [place] [address] Provider, External Social History Tobacco Use Types Packs/Day Years Used Date Smoking Tobacco: Never Assessed Comments Unknown Sex and Gender Information Value Date Recorded Sex Assigned at Not on file Legal Sex Female 7:27 PM EDT Gender Identity Not on file Sexual Orientation Not on file documented as of this encounter Plan of Treatment Upcoming Encounters Date Type Department Care Team (Late st Contact Info) Description 03/03/2025 12:00 PM EDT Appointment [facility] Ultrasound [address] [place] [address] 03/03/2025 1:50 PM EDT Office Visit [facility] [address], [address] [place] [address] Olga Last PA [address] [place] [address] documented as of this encounter Procedures Procedure Name Priority Date/Time Associated Diagnosis Comments MR OUTSIDE IMAGES 10/09/2015 8:23 AM EST documented in this encounter Results * MR transfer of outside films (10/09/2015 8:23 AM EST) Anatomical Region Laterality Modality Magnetic Resonan ce 10/09/2015 8:23 AM EST us External Provider IMG MRI PROCEDURES Final Resul t documented in this encounter Visit Diagnoses Not on filedocumented in this encounter Care Teams Hop Farmer Relationship Specialty Start Date End Date Jonel Kat APRN [address] [place] [address] PCP - General 12/18/20 documented as of this encounter
--- OUTSIDE RECORDS SUMMARY | 2025-01-28 16:27 | XMS_ITS | Encounter Summary ---
Author Organization Healthcare Address [address] [place] [address] Care Team Providers Care Macaroni Press Operator Name Role Phone Jonel Kat APRN Primary Care Provider +1- [phone] Encounter Details Date Type Department Care Team (Late st Contact Info) Description 01/26/2017 Orders Only External Location [address] [place] [address] Provider, External Social History Tobacco Use Types [...] Info) Description 03/03/2025 12:00 PM EDT Appointment [facility] Ultrasound [address] [place] [address] 03/03/2025 1:50 PM EDT Office Visit [place] [facility] [address], [address] [place] [address] Olga Last PA [address] [place] [address] documented as of this encounter Procedures Procedure Name Priority Date/Time Associated Diagnosis Comments MR OUTSIDE IMAGES 01/26/2017 1:50 PM EDT documented in this encounter Results * MR transfer of outside films (01/26/2017 1:50 PM EDT) Anatomical Region Laterality Modality Magnetic Resonan ce 01/26/2017 1:50 PM EDT us External Provider IMG MRI PROCEDURES Final Resul t documented in this encounter Visit Diagnoses Not on filedocumented in this encounter Care Teams Macaroni Press Operator Relationship Specialty Start Date End Date Jonel Kat APRN [address] [place] [address] PCP - General 12/18/20 documented as of this encounter
[2025-01-28] MEDS: TET/DIPHTH/PERT-ADULT 0.5ML SYRINGE 0.5 ML IM (16:29)
[2025-01-28 17:22] VITALS: BP 125/70; PULSE 80; RESP 18; TEMP 37.1; O2SAT 97
== END 2025-01-28 17:26 | disposition home or self-care (01) ==
PROVIDERS: Emergency Provider Emergency Medicine; PCP Physician Assistant
DX: S51.811A Laceration without foreign body of right forearm, initial encounter (principal); W25.XXXA Contact with sharp glass, initial encounter; Z23 Encounter for immunization
CPT/HCPCS: 12002; 90471; 90715; 99283

== ENCOUNTER 2025-01-31 09:11 | Outpatient (CLI) | payer OTHER, SELFPAY ==
--- OUTSIDE RECORDS SUMMARY | 2025-01-31 09:14 | XMS_ITS | Clinical Summary ---
Author Organization Address [address] [place] [address] Care Team Providers Care Airframe Design Engineer Name Role Phone Jonel Kat SUPERVISOR INSECTICIDE Primary Care Provider +1- [phone] Allergies Active Allergy Reactions Criticality Noted Date [...] Description 11/28/2024 9:17 AM EDT Anesthesia Event [facility] Operating Room [address] [place] [address] Juaquin Arnold MD 11/28/2024 9:10 AM EDT - 11/28/2024 10:50 AM EDT Surgery [facility] Operating Room [address] [place] [address] Chris Garcia MD URETEROSCOPY [46101 (CPT )] 11/28/2024 6:33 AM EDT - 11/28/2024 10:56 AM EDT Hospital Encounter [facility] Operating Room [address] [place] [address] Chris Garcia MD Ureteral stone (Primary Dx) Discharge Disposition: Home or Self Care 11/28/2024 Telephone [facility] Urology [address], [address] [place] [address] Christina Stewart LPN 11/28/2024 Telephone [facility] Urology [address], [address] [place] [address] Asael Canseco MD 11/28/2024 Travel 11/21/2024 1:45 PM EDT Consult Medical Office Building Urology [facility], [address] [place] [address] Marga Valentin APRN Kidney stones (Primary Dx) 11/21/2024 Telephone [facility] Urology [address], [address] [place] [address] Chris Garcia MD 11/21/2024 Travel 11/11/2024 Orders Only External Location [address] [place] [address] Provider, External 11/08/2024 Orders Only External Location [address] [place] [address] Provider, External from Last 3 [...] Info) Description 03/03/2025 12:00 PM EDT Appointment [facility] Ultrasound [address] [place] [address] 03/03/2025 1:50 PM EDT [facility] [address], [address] [place] [address] Olga Last PA [address] [place] [address] Health Maintenance Due Date Last [...] Years) (1 of 2 - PCV) 2004 [id number] Vaccine (2 - 2023- season) 2024 08/26/2021 [...] this topic Medical Devices Implanted Type Area Boring And Filling Machine Operator Device Identifier Shelf Expiration Date Model / Serial / Lot Stent Ureteral Double Pigtail Pos 5fr 24cm - [id number] Implanted:Qty: 1 on 11/28/2024 by Chris Garcia MD at [facility] Right: Ureter [id number] 04/03/2026 [id number] / / [id number] Procedures Procedure Name Priority Date/Time Associated Diagnosis Comments FL LESS THAN 1 HOUR (NON-REPORTABLE) Routine 11/28/2024 10:02 AM EDT OXYGEN THERAPY Routine 11/28/2024 9:56 AM EDT PB ANESTHESIA PLACEHOLDER Routine 11/28/2024 9:30 AM EDT IL AN ELECTIVE SUPRAGLOTTIC AIRWAY Routine 11/28/2024 9:30 AM EDT CYSTOSCOPY, WITH URETERAL STENT INSERTION OR REMOVAL 11/28/2024 9:05 AM EDT Calculus of kidney CYSTOSCOPY, WITH RETROGRADE PYELOGRAM 11/28/2024 9:05 AM EDT Calculus of kidney IL CYSTO/URETERO/PYELOSC OPY, DX 11/28/2024 9:05 AM EDT [...] IMG FLUOROSCOPY PROCEDURES Final Result IMAGING * IL AN ELECTIVE SUPRAGLOTTIC AIRWAY, PB ANESTHESIA PLACEHOLDER [...] skin verenice present. 11/22/2024 2:56 PM EDT [facility] Urine Urine specimen obtained by clean catch procedure / Unknown Non-blood Collection / Unknown 11/21/2024 2:29 PM EDT 11/21/2024 4:51 PM EDT Marga Valentin SUPERVISOR INSECTICIDE LAB MICROBIOLOGY - GENERAL ORDERABLES Final Result [facility] [address] [place] [address] * CT MSK OUTSIDE IMAGES (11/11/2024 2:10 PM EDT) Only the most recent of2 resultswithin the time period is included. Anatomical Region Laterality Modality Computed Tomogra phy 11/11/2024 2:10 PM EDT us External Provider IMG CT PROCEDURES Final Result from Last 3 Months Insurance [facility] Care Teams Airframe Design Engineer Relationship Specialty Start Date End Date Jonel Kat APRN [address] [place] [address] [place] [address] PCP - General 12/18/20
--- OUTSIDE RECORDS SUMMARY | 2025-01-31 09:14 | XMS_ITS | Encounter Summary ---
Author Organization Healthcare Address [address] [place] [address] Care Team Providers Care Case Maker Name Role Phone Jonel Kat APRN Primary Care Provider +1- [phone] Encounter Details Date Type Department Care Team (Late st Contact Info) Description 01/26/2017 Orders Only External Location [address] [place] [address] Provider, External Social History Tobacco Use Types [...] Info) Description 03/03/2025 12:00 PM EDT Appointment [facility] Ultrasound [address] [place] [address] 03/03/2025 1:50 PM EDT Office Visit [place] [facility] [address], [address] [place] [address] Olga Last PA [address] [place] [address] documented as of this encounter Procedures Procedure [...] on filedocumented in this encounter Care Teams Case Maker Relationship Specialty Start Date End Date Jonel Kat APRN [address] [place] [address] PCP - General 12/18/20 documented as of this encounter
--- OUTSIDE RECORDS SUMMARY | 2025-01-31 09:14 | XMS_ITS | Continuity of Care Document ---
Author Organization [facility] [employer], [facility] Address [address] [place] [address] Assessment No assessment recorded. Plan of Treatment Reminders Order Date Submit Date Provider Last Modified By Organization Details Last Modified Time Details Appointments FOLLOW UP 2024 03:00P M Kisha Wilde PA-C Not available Not available Not available Lab None recorded. Referral None recorded. Procedures None recorded. Surgeries None recorded. Imaging XR, wrist, 3 or more view 2024 025 [facility] (X-Ray), [address] [facility] [address] [address], [place], [address], 01/31/2025 04:16:01 Medication Orders cephalexi n 500 mg capsule 2024 025 [facility], [address] [place] [address] Jhonathan [place], [id number], 01/30/2025 17:36:02 tramadol 50 mg tablet 2024 025 [facility], [address] [place] [address] Jhon[place], [id number], 01/30/2025 17:36:02 Patient TargetsNo targets recorded. Patient InstructionsNo instructions recorded. Reason for Referral None Reported. Problems Name Problem SNOMED Code Status Onset Date Resolution Date Notes Provider Name and Address Organization Details Recorded Time Neck pain 55566526 Active 2023 CHRISTAL Villegas [address] [place] [address], [address], [employer] 5 14:17:18 Cervical disc disorder with radiculop athy 690470418 Active 2023 CHRISTAL Villegas [address] [place] [address], [address], [place] [employer] 5 14:17:04 Depressiv e disorder 92483774 Active 2023 CHRISTAL Villegas [address] [place] [address], [address], [place] [employer] 4 11:14:18 Acute right otitis media 290661120 Completed 202410/24/2024 CHRISTAL Villegas [address] [place] [address], [address] 8, [employer] 5 14:17:10 Acute urinary tract infection 643290895 Completed 202410/24/2024 CHRISTAL Villegsa [address] [place] [address], [address] 8, [employer] 5 14:17:14 Spasm of back muscles 181104228 Active 2024 CHRISTAL Villegas [address] [place] [address], [address], [employer] 5 14:17:22 Pain of right knee joint 834078957200 100 Active 2024 CHRISTAL Villegas [address] [place] [address], [address] 8, [employer] 5 14:17:20 Kidney stone 24906252 Active 2024 CHRISTAL Villegas [address] [place] [address], [address], [employer] 5 10:54:38 Disorder of right sciatic nerve 673424798081 102 Active 2024 CHRISTAL Villegas [address] [place] [address], [address] 8, [employer] 15:50:22 Pain of right wrist 197046025235 100 Active 2024 CHRISTAL Villegas [address] [place] [address], [address] 8, [employer] 5 17:16:02 Laceratio n of right wrist 451563825215 36544 Active 2024 CHRISTLA Villegas [address] [place] [address], [address] 8, [employer] 5 17:17:24 Problem Notes None recorded. Procedures Surgical History Date Name Laterality Status Provider Name and Address Organization Details Recorded Time 07/10/20 Date of Last Pap Smear completed [employer]. 10/24/2024 08:20:46 [facility] 05/16/2024 12:59:56 Endometrial Ablation completed [employer]. 05/16/2024 12:59:57 Gallbladder Surgery completed [employer]. 05/16/2024 12:59:57 Endometrial Biopsy completed [employer]. 05/16/2024 12:59:57 Dilation and Curettage completed [employer]. 05/16/2024 13:03:45 Imaging Results None recorded. Procedure Notes None recorded. Medical Equipment None Reported. Allergies Allergen ID Allergen Name Allergen Category Reaction Reaction Severity Criticality Documentation Date Start Date Code Code System Note Provider Name and Address Organization Details Recorded Time 13525 aspirin medicatio n other Not available Not available 05/16/2024 1191 [employer]Norm [employer] 12:59:54 66005 adhesive environme nt,medica tion rash Not available Not available 05/16/2024 94878 UNK [employer] 13:00:26 Medications Name Sig Start Date Stop [...] completed Not Available Not Available Not Available metronidazo le 250 mg tablet 05/15 completed Not Available Not Available Not Available ciprofloxac in 500 mg tablet 05/15 completed Not Available Not Available Not Available tramadol 50 mg tablet Take 1 tablet every 6 hours by oral route as needed for 5 days, for pain. 2024 active Not Available Not Available Not Avai lable ketorolac 10 mg tablet TAKE ONE TABLET [...] completed Not Available Not Available Not Available cephalexin 500 mg capsule Take 1 capsule every 6 hours by oral route for 10 days. 2024 active Not Available Not Available Not Avai lable lansoprazol e 30 mg capsule,del ayed release TAKE ONE CAPSULE BY MOUTH ONCE A DAY FOR GERD active Not Available Not Available No t Available prednisone 50 mg tablet 08/08 completed Not Available Not Available Not Available lidocaine 5 % topical patch APPLY 1 PATCH TOPICALLY TO MOST PAINFUL AREA AND LEAVE ON FOR 12 HOURS THEN REMOVE AND LEAVE OFF FOR 12 HOURS active Not Available Not Available No t Available docusate sodium 100 mg capsule 05/15 completed Not Available Not Available Not Available levofloxaci n 500 mg tablet Take 1 tablet every 24 hours by oral route as directed for 7 days. 10/24 completed Not Available Not Available Not Available methylpredn isolone 4 mg tablets in a dose pack TAKE DIRECTED ON PACK FOR 6 DAYS active Not Available Not Available No t Available albuterol sulfate HFA 90 mcg/actuati on [...] Details Last Updated DateTime 5 170.81 cm 30 kg/m2 62668.6 1 g 92 /min 97 % 97 % 98.6 [degF] 122 mm[Hg] 86 mm[Hg] Jayne Garcia [employer] 5 17:07:49 Social History Question Answer Notes LastModified by Organizat ion Details LastModified Time Tobacco Smoking Status Current Every Day Smoker Jayne reinoso, [employer]. 05/16/2024 12:59:56 Do You Have An Advance [...] Information not available 05/16/2024 What Type Of Powder Compounder Do You Use? None Information not available [...] Do You Have A Medical Power Of Upholstery Sewer? No Information not available 05/16/2024 What Was The Date Of Your Most Recent Tobacco Screening? 01/30/2025 Information not available 01/30/2025 Do You Have Any Pets? Yes Information [...] anxious, or unable to sleep at night)? [id number] Information not available 08/08/2024 Do you have [...] Artery Disease N Other N Gout N Kidney Stones N Blood Diseases N Hyperthyroidism N Blood Transfusion N Breast Cancer N Emergency room visit since last appointm ent. Y COPD N Depression Y Dermatologic Disorders N Hypothyroidism N Lung Disease N Developmental or Behavioral Disorders N Defects or Inherited Disease N Breast Problem N Difficulty Swallowing N [...] virus, trivalent, PF 4 completed CHRISTAL Villegas [address] [place] [address], [address], [employer] 05/16/2024 16:13:50 Tdap 4 completed CHRISTAL Villegas [address] [place], [address], [employer] 05/16/2024 16:13:50 Influenza, split virus, quadrivalent, preservative 6 completed Jayne Vice null, [employer] 08/08/2024 10:11:19 Influenza, split virus, quadrivalent, preservative 9 completed Jayne Vice null, [employer] 08/08/2024 10:11:19 COVID-19, mRNA, LNP-S, PF, 30 mcg/0.3 mL dose, umberto-sucrose 2 completed Jayne Vice null, [employer] 08/08/2024 10:11:19 Tdap 5 completed Jayne Vice null, [employer] 08/08/2024 10:11:19 Influenza, split virus, trivalent, preservative 2 completed Jayne Vice null, [employer] 08/08/2024 10:11:19 Influenza, split virus, trivalent, preservative 7 completed Jayne Vice null, [employer] 08/08/2024 10:11:19 Influenza, split virus, quadrivalent, PF 7 completed Jayne Vice null, [employer] 08/08/2024 10:11:19 Influenza, split virus, quadrivalent, PF 3 completed Jayne Vice null, [employer] 08/08/2024 10:11:19 Influenza, split virus, quadrivalent, PF 1 completed Jayne Vice null, [employer] 08/08/2024 10:11:19 Influenza, split virus, quadrivalent, PF 2 completed Jayne Vice null, [employer] 08/08/2024 10:11:19 Influenza, split virus, quadrivalent, PF 0 completed Jayne Vice null, [employer] 08/08/2024 10:11:19 Influenza, split virus, quadrivalent, PF 8 completed Jayne Vice null, [employer] 08/08/2024 10:11:19 Tdap 5 completed Not Available [facility] 01/30/2025 17:01:46 Past Encounters Encounter ID Performer Location Encounter Start Date Encounter Closed Date Diagnosis/Indication Diagnosis SNOMED-CT Code Diagnosis ICD10 Code Diagnosis Note [id number] Kisha Wilde [address] [address] 01/27/2025 14:30:07 01/27/2025 15:48:19 Disorder of right sciatic nerve 2129677379 99852 M54.31 Cervical d isc disorder with radiculopathy 719225902 M50.10 [id number] Kisha Wilde [address] [address] 01/30/2025 17:01:21 01/30/2025 17:15:53 Pain of right wrist 2122733071 12714 M25.531 Laceration of right wrist 8105582148 3066265 S61.511A Health Concerns Section Related Observation LastModified by Organization Detai ls LastModified Time None Recorded Concern Status LastModified by Organization Details LastModified Time None Recorded Payers Encounter Date Sequence Insurance Name Policy Number Policy Schafer Covered Member ID Schafer Member ID Guarantor Name 01/30/2025 1 [facility] (MEDICAID HMO) Dipika Garzon [id number] Dipika Garzon Notes Date Note Type Note Provider Name and Address Organization Details Recorded Time 01/30/2025 text/html Patient locked her keys in her car on 01/28, then punched the window with a rock to break the glass.Laceratio n to right thumb/wrist. Had 12 sutures in ER. Still very painful to move. CHRISTAL Villegas [address] [place] [address], [address], [facility] [employer], [facility]. 01/30/2025 17:23:19 OBGyn Episode No OBEpisode recorded.
--- OUTSIDE RECORDS SUMMARY | 2025-01-31 09:14 | XMS_ITS | Encounter Summary ---
Author Organization Healthcare Address [address] [place] [address] Care Team Providers Care Handle Bender Name Role Phone Jonel Kat APRN Primary Care Provider +1- [phone] Encounter Details Date Type Department Care Team (Late st Contact Info) Description 10/09/2015 Orders Only External Location [address] [place] [address] Provider, External Social History Tobacco Use Types [...] Info) Description 03/03/2025 12:00 PM EDT Appointment [facility] Ultrasound [address] [place] [address] 03/03/2025 1:50 PM EDT Office Visit [facility] [address], [address] [place] [address] Olga Last PA [address] [place] [address] documented as of this encounter Procedures Procedure [...] on filedocumented in this encounter Care Teams Handle Bender Relationship Specialty Start Date End Date Jonel Kat APRN [address] [place] [address] PCP - General 12/18/20 documented as of this encounter
--- OUTSIDE RECORDS SUMMARY | 2025-01-31 09:14 | XMS_ITS | Continuity of Care Document ---
Author Organization [place] - [employer], [facility] Address [address] [place] [address] Assessment No assessment recorded. Plan of Treatment [...] tablets in a dose pack 2024 025 [facility], [address] [place] [address], [id number], 01/27/2025 16:18:03 lidocaine 5 % topical patch 2024 025 [facility], [address] [place] [address], [id number], 01/27/2025 16:18:04 pregabali n 75 mg capsule 2024 025 [facility], [address] [place] [address], [id number], 01/27/2025 16:12:59 Patient TargetsNo targets recorded. Patient InstructionsNo instructions recorded. Reason for Referral None Reported. Problems Name Problem SNOMED Code Status Onset Date Resolution Date Notes Provider Name and Address Organization Details Recorded Time Neck pain 06403885 Active 2023 CHRISTAL Villegas [address] [place] [address], [phone] 8, [employer] 5 14:17:18 Cervical disc disorder with radiculop athy 760120478 Active 2023 CHRISTAL Villegas [address] [place] [address], 426[address] 8, [facility] 5 14:17:04 Depressiv e disorder 71067789 Active 2023 CHRISTAL Villegas [address] [place] [address], [phone] 8, [facility] 4 11:14:18 Acute right otitis media 402483711 Completed 202410/24/2024 CHRISTAL Villegas [address] [place] [address], 87395-430 8, [employer] 5 14:17:10 Acute urinary tract infection 861214732 Completed 202410/24/2024 CHRISTAL Villegas [address] [place] [address], 14[address]736 8, [employer] 5 14:17:14 Spasm of back muscles 152545951 Active 2024 CHRISTAL Villegas [address] [place] [address], 86484-705 8, [employer] 5 14:17:22 Pain of right knee joint 007377857627 100 Active 2024 CHRISTAL Villegas [address] [place] [address], 05733-993 8, [employer] 5 14:17:20 Kidney stone 42339073 Active 2024 CHRISTAL Villegas [address] [place] [address], 74943-056 8, [employer] 5 10:54:38 Disorder of right sciatic nerve 787729248289 102 Active 2024 CHRISTAL Villegas [address] [place] [address], 53994-451 8, [facility] 5 15:50:22 Pain of right wrist 641372020081 100 Active 2024 [address]isha Wilde [address], [address] 8, [facility] 5 17:16:02 Laceratio n of right wrist 191122110283 57902 Active 2024 Kisha Wilde [address], [address] 8, [facility] 5 17:17:24 Problem Notes None recorded. Procedures Surgical History Date Name Laterality Status Provider Name and Address Organization Details Recorded Time 07/10/20 Date of Last Pap Smear completed [employer] 10/24/2024 08:20:46 [facility] 05/16/2024 12:59:56 Endometrial Ablation completed [employer]. 05/16/2024 12:59:57 Gallbladder Surgery completed [facility]. 05/16/2024 12:59:57 Endometrial Biopsy completed [facility]. 05/16/2024 12:59:57 Dilation and Curettage completed [employer]. 05/16/2024 13:03:45 Imaging Results None recorded. Procedure Notes None recorded. Medical Equipment None Reported. Allergies Allergen ID Allergen Name Allergen Category Reaction Reaction Severity Criticality Documentation Date Start Date Code Code System Note Provider Name and Address Organization Details Recorded Time 79735 aspirin medicatio n other Not available Not available 05/16/2024 1191 [employer] 12:59:54 54135 adhesive environme nt,medica tion rash Not available Not available 05/16/2024 81525 [employer] 13:00:26 Medications Name Sig Start Date [...] Updated DateTime 5 170.81 cm 30.3 kg/m2 36604.5 1 g 98 % 98 % 84 /min 98.5 [degF] 124 mm[Hg] 80 mm[Hg] Jayne Garcia [email or web address] 5 15:17:09 Social History Question Answer Notes LastModified by Organizat ion Details LastModified Time Tobacco Smoking Status Current Every Day Smoker Jayne reinoso, [email or web address] 05/16/2024 12:59:56 Do You Have An Advance [...] Information not available 05/16/2024 What Type Of Dispensing Lead Do You Use? None Information not available [...] Do You Have A Medical Power Of Motor Home Electrical [employer]? No Information not available 05/16/2024 What Was [...] anxious, or unable to sleep at night)? [id number] Information not available 08/08/2024 Do you have [...] Artery Disease N Gout N Other N Kidney Stones N Blood Diseases N Hyperthyroidism N Breast Cancer N Blood Transfusion N Emergency room visit since last appointm ent. Y Lung Disease N COPD N Depression Y [...] virus, trivalent, PF 4 completed CHRISTAL Villegas [address] [place] [address], [phone], [facility] 05/16/2024 16:13:50 Tdap 4 completed CHRISTAL Villegas [address] [place] [address], [phone], [facility] 05/16/2024 16:13:50 Influenza, split virus, quadrivalent, preservative 6 completed Jayne Vice null, [facility] 08/08/2024 10:11:19 Influenza, split virus, quadrivalent, preservative 9 completed Jayne Vice null, [facility] 08/08/2024 10:11:19 COVID-19, mRNA, LNP-S, PF, 30 mcg/0.3 mL dose, umberto-sucrose 2 completed Jayne Vice null, [facility] 08/08/2024 10:11:19 Tdap 5 completed Jayne Vice null, [facility] 08/08/2024 10:11:19 Influenza, split virus, trivalent, preservative 2 completed Jayne Vice null, [facility] 08/08/2024 10:11:19 Influenza, split virus, trivalent, preservative 7 completed Jayne Vice null, [facility] 08/08/2024 10:11:19 Influenza, split virus, quadrivalent, PF 7 completed Jayne Vice null, [facility] 08/08/2024 10:11:19 Influenza, split virus, quadrivalent, PF 3 completed Jayne Vice null, [facility] 08/08/2024 10:11:19 Influenza, split virus, quadrivalent, PF 1 completed Jayne Vice null, [facility] 08/08/2024 10:11:19 Influenza, split virus, quadrivalent, PF 2 completed Jayne Vice null, [facility] 08/08/2024 10:11:19 Influenza, split virus, quadrivalent, PF 0 completed Jayne Vice null, [facility] 08/08/2024 10:11:19 Influenza, split virus, quadrivalent, PF 8 completed Jayne Vice null, [facility] 08/08/2024 10:11:19 Tdap 5 completed Not Available [facility] 01/30/2025 17:01:46 Past Encounters Encounter ID Performer Location Encounter Start Date Encounter Closed Date Diagnosis/Indication Diagnosis SNOMED-CT Code Diagnosis ICD10 Code Diagnosis Note [id number] CHRISTAL Villegas [facility] [address] [place] [address] 01/27/2025 14:30:07 01/27/2025 15:48:19 Disorder of right sciatic nerve 5542794715 93878 M54.31 Cervical d isc disorder with radiculopathy 985919261 M50.10 Health Concerns Section Related Observation LastModified by Organization Detai ls LastModified Time None Recorded Concern Status LastModified by Organization Details LastModified Time None Recorded Payers Encounter Date Sequence Insurance Name Policy Number Policy Schafer Covered Member ID Schafer Member ID Guarantor Name 01/27/2025 1 [employer] [facility] (MEDICAID HMO) Dipika Garzon [id number] Dipika Garzon Notes Date Note Type Note Provider Name and Address Organization Details Recorded Time 01/27/2025 text/html Patient presents for followup.Histor y cervical disc disorder and needs refills on Lyrica which helps manage pain.Has flare of right sided sciatica and requests refills on Lidoderm patches CHRISTAL Villegas [address] [place] [address], [phone], [facility] 01/27/2025 17:41:26 OBGyn Episode No OBEpisode recorded.
--- OUTSIDE RECORDS SUMMARY | 2025-01-31 09:15 | XMS_ITS | Data Portability ---
Author Organization [facility] [employer] [place] - [place] Address [address] [place] [address] Assessment No assessment recorded. Plan of Treatment Reminders Order Date Submit Date Provider Last Modified By Organization Details Last Modified Time Details Appointments FOLLOW UP 2024 03:00P Baylee Wilde PA-C Not available Not available Not available Lab urinalysi s, dipstick [address], [address] [place] [address], [place], [address], 09/05/2024 10:55:28 culture, urine 2024 025 [place] [facility], [address] [place] [address], [place], [address], 09/07/2024 04:07:07 Referral urologist referral - STAT 2024 025 [facility], [address], 2nd [facility], [place], [address], 11/27/2024 08:47:23 orthopedi c surgeon referral - first available appt 2024 025 [facility], [address], [place], [address], 11/21/2024 14:31:07 Procedures None recorded. Surgeries None recorded. Imaging XR, wrist, 3 or more view 2024 025 [facility] ([facility]), [address], [place], [address], 01/31/2025 04:16:01 Medication Orders cephalexi n 500 mg capsule 2024 025 [facility], [address] [place] [address] S, [place], [id number], 01/30/2025 17:36:02 tramadol 50 mg tablet 2024 025 [facility], [address] [place] [address] S, [place], [id number], 01/30/2025 17:36:02 Medrol (Librado) 4 mg tablets in a dose pack 2024 025 [facility], [address] [place] [address] S, [place], [id number], 01/27/2025 16:18:03 lidocaine 5 % topical patch 2024 025 [facility], [address] [place] [address] S, [place], [id number], 01/27/2025 16:18:04 pregabali n 75 mg capsule 2024 025 [facility], [address] [place] [address] S, [place], [id number], 01/27/2025 16:12:59 ketorolac 60 mg/2 mL intramusc ular solution 2024 025 Not available 01/07/2025 11:40:51 ketorolac 10 mg tablet 2024 025 [facility], [address] [place] [address] S, [place], [id number], 01/07/2025 11:46:10 sertralin e 50 mg tablet 2024 025 [facility], [address] [place] [address] [place], [id number], 01/27/2025 15:22:47 cyclobenz aprine 10 mg tablet 2024 025 [facility], [address] [place] [address], [id number], 10/24/2024 16:37:33 cyclobenz aprine 10 mg tablet 2024 025 [facility], [address] [place] [address] [place], [id number], 09/05/2024 11:03:19 levofloxa cm 500 mg tablet 2024 025 [facility], [address] [place] [address], [id number], 10/24/2024 08:44:30 Pyridium 200 mg tablet 2024 025 [facility], [address] [place] [address], [id number], 10/24/2024 08:44:39 Patient TargetsNo targets recorded. Patient Instructions Encounter Date Encounter Id Patient Instructions Last Modified By Organization Details Last Modified Time 11/14/2024 [id number] kidney stone: care instructions [id number] Not available 11/14/2024 11:13:08 learning about diet for kidney stone prevention [id number] Not available 11/14/2024 11:13:08 Reason for Referral Orthopedic Surgeon Referral for Pain of right knee joint first available appt Referring Physician: [facility], Encounter Date: 10/24/2024 Urologist Referral for Kidne y stone STAT Referring Physician: [facility], Encounter Date: 11/14/2024 Results Created Date Observation Date Name Description Value Unit Range Abnormal Flag Note LastModifiedBy Organization Detail LastModifiedTime 08/08/19 25 08/11/2024 TOXAS SURE FLEX 19, UR summary report FINAL ===== ===== ===== ===== ===== ===== ===== ===== ===== ===== ===== ===== ===== === Canna binoi ds, MS, Ur RFX ToxAs sure [...] ===== ===== ===== === Not Available [facility] [address] [place], [address], 08/11/2024 10:06:39 08/08/1908/11/2024 TOXAS SURE FLEX 19, UR pdf . Not Available [facility] [address] [place], [address], 08/11/2024 10:06:39 08/08/1908/11/2024 TOXAS SURE FLEX 19, UR creatinine 62 mg/dL REFER ENCE RANGE : Ref Range >=20 Not Available [facility] [address] [place], [address], 08/11/2024 10:06:39 08/08/1908/11/2024 TOXAS SURE FLEX 19, UR amphetamines ia NEGATI VE NG/mL cutoff :300 Not Available [facility] [address] [place], [address], 08/11/2024 10:06:39 08/08/19 25 08/11/2024 TOXAS SURE FLEX 19, UR benzodiazepi binh NEGATI VE Not Available [facility] [address] [place], [address], 08/11/2024 10:06:39 08/08/19 25 08/11/2024 TOXAS SURE FLEX 19, UR diazepam NOT DETECT ED NG/mg _crea t Not Available [facility] [address] [place], [address], 08/11/2024 10:06:39 08/08/19 25 08/11/2024 TOXAS SURE FLEX 19, UR desmethyldia zepam NOT DETECT ED NG/mg _crea t Not Available [facility] [address] [place], [address], 08/11/2024 10:06:39 08/08/19 25 08/11/2024 TOXAS SURE FLEX 19, UR oxazepam NOT DETECT ED NG/mg _crea t Not Available [facility] [address] [place], [address], 08/11/2024 10:06:39 08/08/19 25 08/11/2024 TOXAS SURE [...] kaela Oxaze kaela: None Not Available [facility] [address] [place], [address], 08/11/2024 10:06:39 08/08/19 25 08/11/2024 TOXAS SURE FLEX 19, UR alprazolam NOT DETECT ED NG/mg _crea t Not Available [facility] [address] [place], [address], 08/11/2024 10:06:39 08/08/19 25 08/11/2024 TOXAS SURE FLEX 19, UR alpha-hydrox yalprazolam NOT DETECT ED NG/mg _crea t Not Available [facility] [address] [place], [address], 08/11/2024 10:06:39 08/08/19 25 08/11/2024 TOXAS SURE FLEX 19, UR desalkylflur azepam NOT DETECT ED NG/mg _crea t Not Available [facility] [address] [place], [address], 08/11/2024 10:06:39 08/08/19 25 08/11/2024 TOXAS SURE FLEX 19, UR lorazepam NOT DETECT ED NG/mg _crea t Not Available [facility] [address] [place], [address], 08/11/2024 10:06:39 08/08/19 25 08/11/2024 TOXAS SURE FLEX 19, UR alpha-hydrox ytriazolam NOT DETECT ED NG/mg _crea t Not Available [facility] [address] [place], [address], 08/11/2024 10:06:39 08/08/19 25 08/11/2024 TOXAS SURE FLEX 19, UR clonazepam NOT DETECT ED NG/mg _crea t Not Available [facility] [address] [place], [address], 08/11/2024 10:06:39 08/08/19 25 08/11/2024 TOXAS SURE FLEX 19, UR 7-aminoclona zepam NOT DETECT ED NG/mg _crea t Not Available [facility] [address] [place], [address], 08/11/2024 10:06:39 08/08/19 25 08/11/2024 TOXAS SURE FLEX 19, UR midazolam NOT DETECT ED NG/mg _crea t Not Available [facility] [address] [place], [address], 08/11/2024 10:06:39 08/08/19 25 08/11/2024 TOXAS SURE FLEX 19, UR alpha-hydrox ymidazolam NOT DETECT ED NG/mg _crea t Not Available [facility] [address] [place], [address], 08/11/2024 10:06:39 08/08/19 25 08/11/2024 TOXAS SURE FLEX 19, UR flunitrazepa m NOT DETECT ED NG/mg _crea t Not Available [facility] [address] [place], [address], 08/11/2024 10:06:39 08/08/19 25 08/11/2024 TOXAS SURE FLEX 19, UR desmethylflu nitrazepam NOT DETECT ED NG/mg _crea t Not Available [facility] [address] [place], [address], 08/11/2024 10:06:39 08/08/19 25 08/11/2024 TOXAS SURE FLEX 19, UR cocaine metabolite ia NEGATI VE NG/mL cutoff :150 Not Available [facility] [address] [place], [address], 08/11/2024 10:06:39 08/08/19 25 08/11/2024 TOXAS SURE FLEX 19, UR ethanol biomarkers ia NEGATI VE NG/mL cutoff :500 Not Available [facility] [address] [place], [address], 08/11/2024 10:06:39 08/08/19 25 08/11/2024 TOXAS SURE FLEX 19, UR cannabinoids ia COMMEN T NG/mL cutoff :20 Furth er testi ng indic ated Not Available [facility] [address] [place], [address], 08/11/2024 10:06:39 08/08/19 25 08/11/2024 TOXAS SURE FLEX 19, UR 6-acetylmorp lizette ia NEGATI VE NG/mL cutoff :10 Not Available [facility] [address] [place], [address], 08/11/2024 10:06:39 08/08/19 25 08/11/2024 TOXAS SURE FLEX 19, UR opiate class ia NEGATI VE NG/mL cutoff :100 Not Available [facility] [address] [place], [address], 08/11/2024 10:06:39 08/08/19 25 08/11/2024 TOXAS SURE FLEX 19, UR oxycodone class ia NEGATI VE NG/mL cutoff :100 Not Available [facility] [address] [place], [address], 08/11/2024 10:06:39 08/08/19 25 08/11/2024 TOXAS SURE FLEX 19, UR methadone ia NEGATI VE NG/mL cutoff :100 Not Available [facility] [address] [place], [address], 08/11/2024 10:06:39 08/08/19 25 08/11/2024 TOXAS SURE FLEX 19, UR methadone mtb ia NEGATI VE NG/mL cutoff :100 Not Available [facility] [address] [place], [address], 08/11/2024 10:06:39 08/08/19 25 08/11/2024 TOXAS SURE FLEX 19, UR buprenorphin e ia NEGATI VE NG/mL cutoff :5.0 Not Available [facility] [address] [place], [address], 08/11/2024 10:06:39 08/08/19 25 08/11/2024 TOXAS SURE FLEX 19, UR fentanyl ia NEGATI VE NG/mL cutoff :2.0 Not Available [facility] [address] [place], [address], 08/11/2024 10:06:39 08/08/19 25 08/11/2024 TOXAS SURE FLEX 19, UR tapentadol ia NEGATI VE NG/mL cutoff :200 Not Available [facility] [address] [place], [address], 08/11/2024 10:06:39 08/08/19 25 08/11/2024 TOXAS SURE FLEX 19, UR propoxyphene ia NEGATI VE NG/mL cutoff :300 Not Available [facility] [address] [place], [address], 08/11/2024 10:06:39 08/08/19 25 08/11/2024 TOXAS SURE FLEX 19, UR tramadol ia NEGATI VE NG/mL cutoff :200 Not Available [facility] [address] [place], [address], 08/11/2024 10:06:39 08/08/19 25 08/11/2024 TOXAS SURE FLEX 19, UR methylphenid ate ia NEGATI VE NG/mL cutoff :100 Not Available [facility] [address] [place], [address], 08/11/2024 10:06:39 08/08/19 25 08/11/2024 TOXAS SURE FLEX 19, UR barbiturates ia NEGATI VE NG/mL cutoff :200 Not Available [facility] [address] [place], [address], 08/11/2024 10:06:39 08/08/19 25 08/11/2024 TOXAS SURE FLEX 19, UR phencyclidin e ia NEGATI VE NG/mL cutoff :25 Not Available [facility] [address] [place], [address], 08/11/2024 10:06:39 08/08/19 25 08/11/2024 TOXAS SURE FLEX 19, UR gabapentin ia NEGATI VE ug/mL cutoff :1.0 Not Available [facility] [address] [place], [address], 08/11/2024 10:06:39 08/08/19 25 08/11/2024 TOXAS SURE FLEX 19, UR anticonvulsa nts NEGATI VE Not Available [facility] [address] [place], [address], 08/11/2024 10:06:39 08/08/19 25 08/11/2024 TOXAS SURE FLEX 19, UR pregabalin NOT DETECT ED Not Available [facility] [address] [place], [address], 08/11/2024 10:06:39 08/08/19 25 08/11/2024 TOXAS SURE FLEX 19, UR carisoprodol ia NEGATI VE NG/mL cutoff :100 Not Available [facility] [address] [place], [address], 08/11/2024 10:06:39 08/08/19 25 08/11/2024 CANNA SANDEEPOI DS, MS, UR RFX cannabinoids +POSIT FATOU+ Not Available [facility] [address] [facility], [place], [address], 08/11/2024 10:06:40 08/08/19 25 08/11/2024 SHERRI DALAL DS, MS, UR RFX carboxy-THC 1227 NG/mg _crea t This test is not inten ded to disti nguis h betwe en the metab olite s of delta -9-te trahy droca nnabi nol, the predo minan t form of THC in most herba l or marij uana- based produ cts, and delta -8-te trahy droca nnabi nol, a psych oacti ve compo und gener ally synth esize d from other sherri dalal ds. Not Available [facility] [address] [facility], [place], [address], 08/11/2024 10:06:40 09/05/19 25 09/07/2024 URINE CULTU RE, ROUTI NE urine culture, routine Final report Not Available [facility] [address] [facility], [place], [address], 09/07/2024 04:07:07 09/05/19 25 09/07/2024 URINE CULTU RE, ROUTI NE result 1 No growth Not Available [facility] [address] [facility], [place], [address], 09/07/2024 04:07:07 09/05/19 25 09/05/2024 urina lysis , dipst ick Leukocytes Negati ve Not Available [facility] [address] [facility], [place], [address], 09/05/2024 10:34:28 09/05/19 25 09/05/2024 urina lysis , dipst ick Nitrite negati ve Not Available [facility] [address] [facility], [place], [address], 09/05/2024 10:34:28 09/05/19 25 09/05/2024 urina lysis , dipst ick Urobilinogen .2 Not Available [address], [place], [address], 09/05/2024 10:34:28 09/05/19 25 09/05/2024 urina lysis , dipst ick Protein Negati ve Not Available [address], [place], [address], 09/05/2024 10:34:28 09/05/19 25 09/05/2024 urina lysis , dipst ick pH 6.0 Not Available [address], [place], [address], 09/05/2024 10:34:28 09/05/19 25 09/05/2024 urina lysis , dipst ick Blood Non-He molyze d: Trace Not Available [address], [place], [address], 09/05/2024 10:34:28 09/05/19 25 09/05/2024 urina lysis , dipst ick Specific [place] 1.025 Not Available [address], [place], [address], 09/05/2024 10:34:28 09/05/19 25 09/05/2024 urina lysis , dipst ick Ketone Negati ve Not Available [address], [place], [address], 09/05/2024 10:34:28 09/05/19 25 09/05/2024 urina lysis , dipst ick Bilirubin Negati ve Not Available [address], [place], [address], 09/05/2024 10:34:28 09/05/19 25 09/05/2024 urina lysis , dipst ick Glucose Negati ve Not Available [address], [address], 09/05/2024 10:34:28 09/05/19 25 09/05/2024 urina lysis , dipst ick Appearance Clear Not Available [address], [address], 09/05/2024 10:34:28 09/05/19 25 09/05/2024 urina lysis , dipst ick Color Dark Yellow Not Available [address], [address], 09/05/2024 10:34:28 Result Notes None recorded. Problems Name Problem SNOMED Code Status Onset Date Resolution Date Notes Provider Name and Address Organization Details Recorded Time Neck pain 81460461 Active 2023 CHRISTAL Villegas [address] [place] [address], [address], [employer] 5 14:17:18 Cervical disc disorder with radiculop athy 409494787 Active 2023 CHRISTAL Villegas [address] [place] [address], [address] 8, [employer] 5 14:17:04 Depressiv e disorder 52584383 Active 2023 CHRISTAL Villegas [address] [place] [address], [address], [employer] 4 11:14:18 Acute right otitis media 284429156 Completed 202410/24/2024 CHRISTAL Villegas [address] [place] [address], [address], [employer] 14:17:10 Acute urinary tract infection 550294058 Completed 202410/24/2024 CHRISTAL Villegas [address] [place] [address], [address] 8, [employer] 5 14:17:14 Spasm of back muscles 027277258 Active 2024 CHRISTAL Villegas [address] [place] [address], [address], [employer] 5 14:17:22 Pain of right knee joint 305126658062 100 Active 2024 CHRISTAL Villegas [address] [place] [address], [address] 8, [employer] 14:17:20 Kidney stone 14290583 Active 2024 CHRISTAL Villegas [address] [place] [address], [address] 8, [employer] 5 10:54:38 Disorder of right sciatic nerve 084978387800 102 Active 2024 CHRISTAL Villegas [address] [place] [address], [address] 8, [employer] 15:50:22 Pain of right wrist 231350424220 100 Active 2024 CHRISTAL Villegas [address] [place] [address], [address] 8, [employer] 17:16:02 Laceratio n of right wrist 479093843383 11176 Active 2024 CHRISTAL Villegas [address] [place] [address], [address], [employer] 17:17:24 Problem Notes None recorded. Procedures Surgical History Date Name Laterality Status Provider Name and Address Organization Details Recorded Time 07/10/20 Date of Last Pap Smear completed [employer] 10/24/2024 08:20:46 Hysterectomy completed [facility] [employer]. 05/16/2024 12:59:56 Endometrial Ablation completed [employer] 05/16/2024 12:59:57 Gallbladder Surgery completed [employer]. 05/16/2024 12:59:57 Endometrial Biopsy completed [employer]. 05/16/2024 12:59:57 Dilation and Curettage completed [employer] 05/16/2024 13:03:45 Imaging Results None recorded. Procedure Notes None recorded. Medical Equipment None Reported. Allergies Allergen ID Allergen Name Allergen Category Reaction Reaction Severity Criticality Documentation Date Start Date Code Code System Note Provider Name and Address Organization Details Recorded Time 81912 aspirin medicatio n other Not available Not available 05/16/2024 1191 [employer] 12:59:54 04213 adhesive environme nt,medica tion rash Not available Not available 05/16/2024 01133 UNK [email or web address] 13:00:26 Medications Name Sig Start Date Stop [...] Available Not Available Not Available amoxicillin 875 mg-potmarcellaiu m clavulanate 125 mg tablet 05/15 completed [...] Updated DateTime 5 170.81 cm 31.3 kg/m2 67253.5 g 96 % 96 % 82 /min 98 [degF] 104 mm[Hg] 70 mm[Hg] [employer] 5 10:35:48 Date Recorded Body height Body mass index (BMI) Body weight Heart rate Oxygen saturation Oxygen saturation in Arterial blood by Pulse oximetry Body temperature Systolic blood pressure Diastolic blood pressure Provider Name and Address Organization Details Last Updated DateTime 5 170.81 cm 31.8 kg/m2 54575.7 2 g 80 /min 96 % 96 % 98.2 [degF] 120 mm[Hg] 80 mm[Hg] [employer] 5 08:19:03 Date Recorded Body height Body mass index (BMI) Body weight Heart rate Oxygen saturation Oxygen saturation in Arterial blood by Pulse oximetry Body temperature Systolic blood pressure Diastolic blood pressure Provider Name and Address Organization Details Last Updated DateTime 5 170.81 cm 32.5 kg/m2 24907.5 1 g 87 /min 98 % 98 % 98.7 [degF] 134 mm[Hg] 87 mm[Hg] Malaika Sampson [employer] 5 10:16:09 Date Recorded Body height Body mass index (BMI) Body weight Oxygen saturation Oxygen saturation in Arterial blood by Pulse oximetry Heart rate Body temperature Systolic blood pressure Diastolic blood pressure Provider Name and Address Organization Details Last Updated DateTime 5 170.81 cm 30.3 kg/m2 38930.5 1 g 98 % 98 % 84 /min 98.5 [degF] 124 mm[Hg] 80 mm[Hg] Jayne [employer] 15:17:09 Date Recorded Body height Body mass index (BMI) Body weight Heart rate Oxygen saturation Oxygen saturation in Arterial blood by Pulse oximetry Body temperature Systolic blood pressure Diastolic blood pressure Provider Name and Address Organization Details Last Updated DateTime 5 170.81 cm 30 kg/m2 02634.6 1 g 92 /min 97 % 97 % 98.6 [degF] 122 mm[Hg] 86 mm[Hg] Jayne [employer]. 17:07:49 Social History Question Answer Notes LastModified by Organizat ion Details LastModified Time Tobacco Smoking Status Current Every Day Smoker Jayne [employer]. 05/16/2024 12:59:56 Do You Have An Advance [...] Information not available 05/16/2024 What Type Of Net Developer Contract Do You Use? None Information not available [...] Do You Have A Medical Power Of Thiokol Operator? No Information not available 05/16/2024 What Was [...] anxious, or unable to sleep at night)? [id number] Information not available 08/08/2024 Do you have [...] virus, trivalent, PF 4 completed CHRISTAL Villegas [address] [place] [address], [address], [employer] 05/16/2024 16:13:50 Tdap 4 completed CHRISTAL Villegas [address] [place] [address], [address], [employer] 05/16/2024 16:13:50 Influenza, split virus, quadrivalent, preservative 6 completed Jayne Vice null, [employer] 08/08/2024 10:11:19 Influenza, split virus, quadrivalent, preservative 9 completed Jayne Vice null, [employer] 08/08/2024 10:11:19 COVID-19, mRNA, LNP-S, PF, 30 mcg/0.3 mL dose, umberto-sucrose 2 completed Jayne Vice null, [employer] 08/08/2024 10:11:19 Tdap 5 completed Jayne Vice null, [employer] 08/08/2024 10:11:19 Influenza, split virus, trivalent, preservative 2 completed Jayne Vice null, [employer] 08/08/2024 10:11:19 Influenza, split virus, trivalent, preservative 7 completed Jayne Vice null, [employer] 08/08/2024 10:11:19 Influenza, split virus, quadrivalent, PF 7 completed Jayne Vice null, [employer] 08/08/2024 10:11:19 Influenza, split virus, quadrivalent, PF 3 completed Jayne Vice null, [employer] 08/08/2024 10:11:19 Influenza, split virus, quadrivalent, PF 1 completed Jayne Vice null, [employer] 08/08/2024 10:11:19 Influenza, split virus, quadrivalent, PF 2 completed Jayne Vice null, [employer] 08/08/2024 10:11:19 Influenza, split virus, quadrivalent, PF 0 completed Jayne Vice null, [employer] 08/08/2024 10:11:19 Influenza, split virus, quadrivalent, PF 8 completed Jayne Vice null, [employer] 08/08/2024 10:11:19 Tdap 5 completed Not Available [facility] 01/30/2025 17:01:46 Past Encounters Encounter ID Performer Location Encounter Start Date Encounter Closed Date Diagnosis/Indication Diagnosis SNOMED-CT Code Diagnosis ICD10 Code Diagnosis Note [id number] CHRISTAL Villegas [facility] [address] [address] 05/16/2024 12:50:39 05/16/2024 13:59:42 Administration of influenza vaccine 58383922 Z23 Neck pain 22753037 M54.2 Cervical d isc disorder with radiculopathy 126037369 M50.10 Increase [employer] er #[id number] reviewed today Administra tion of diphtheria, pertussis, and tetanus vaccine 327816111 Z23 Depressive disorder 3548 9007 F32.A [id number] CHRISTAL Villegas [address] [address] 08/08/2024 09:55:13 08/08/2024 10:37:24 Long-term drug therapy 192802126 Z79.899 Acute righ t otitis media 211980756 H66.91 Cervical d isc disorder with radiculopathy 586370564 M50.10 Body mass index 30+ - obesity 379293941 Z68.30 [id number] CHRISTAL Villegas [address] [address] 09/05/2024 10:13:54 09/05/2024 11:06:46 Low back pain 296644568 M54.50 Acute urin sarah tract infection 617148889 N39.0 Spasm of back muscles 20 9720271 M62.830 Cervical d isc disorder with radiculopathy 921560676 M50.10 [id number] CHRISTAL Villegas [address] [address] 10/24/2024 08:00:45 10/24/2024 08:47:48 Pain of right knee joint 1736351171 64748 M25.561 Cervical d isc disorder with radiculopathy 599784155 M50.10 [id number] CHRISTAL Villegas [address] [address] 11/14/2024 10:03:16 11/14/2024 11:39:31 Kidney stone 25937730 N20.0 reviewed ER recordsTor adol IM & POContinue FLomax, increase fluidsRefe r to urology for possible extraction Depressive disorder 1728 9007 F32.A [id number] CHRISTAL Villegas [facility] [address] [facility] [place] [address] 01/27/2025 14:30:07 01/27/2025 15:48:19 Disorder of right sciatic nerve 5428306599 27940 M54.31 Cervical d isc disorder with radiculopathy 165403034 M50.10 [id number] CHRISTAL Villegas [facility] [address] [place] [address] 01/30/2025 17:01:21 01/30/2025 17:15:53 Pain of right wrist 9382022677 77343 M25.531 Laceration of right wrist 5606249305 8785288 S61.511A Health Concerns Section Related Observation LastModified by Organization Detai ls LastModified Time None Recorded Concern Status LastModified by Organization Details LastModified Time None Recorded Advance Directives Directive N: Payers Insurance Date Sequence Insurance Name Policy Number Policy Schafer Covered Member ID Schafer Member ID Guarantor Name 01/26/2025 1 [facility] (MEDICAID HMO) Dipika Garzon [id number] Dipika Garzon Notes Date Note Type Note Provider Name and Address Organization Details Recorded Time 09/05/2024 text/html Low back pain, dysuria, frequency X 3 days. No fever. No nausea or vomiting. CHRISTAL Villegas [address] [place] [address], [address], [employer] 09/05/2024 17:39:48 10/24/2024 text/html Patient presents for followup. Overall doing well. States that she is having right knee pain. States it makes grinding noises and hurts. Does not yet give out or get stuck, but is feeling progressively worse with time.Neck pain seems to be mostly better with meds. CHRISTAL Villegas [address] [place], [address], [employer] 10/24/2024 16:35:57 11/14/2024 text/html Patient presents [...] Still having severe pain. CHRISTAL Villegas [address] [place], [address], [employer] 11/14/2024 11:14:05 01/27/2025 text/html Patient presents for followup.History cervical disc disorder and needs refills on Lyrica which helps manage pain.Has flare of right sided sciatica and requests refills on Lidoderm patches CHRISTAL Villegas [address] [place], [address], [employer] 01/27/2025 17:41:26 01/30/2025 text/html Patient locked h er keys in her car on 01/28, then punched the window with a rock to break the glass.Laceration to right thumb/wrist. Had 12 sutures in ER. Still very painful to move. CHRISTAL Villegas [address] [place], [address], [employer] 01/30/2025 17:23:19 OBGyn Episode No OBEpisode recorded.
--- NOTE | 2025-01-31 09:16 | XR_ITS ---
FINAL REPORT CLINICAL HISTORY: WRIST PAIN from punching car window on Monday, lateral sided pain FINDINGS: RIGHT WRIST Three views show no evidence of an acute, displaced fracture or dislocation of the visualized bony architecture. The joint spaces appear normal. IMPRESSION: Unremarkable exam. Reviewed, Interpreted and Dictated by Kim Bob MD Transcribed by Frida Fontanez Authenticated and [facility]
== END 2025-01-31 23:59 | disposition home or self-care (01) ==
LOC: RAD 09:12
PROVIDERS: PCP Physician Assistant; Visit Provider Physician Assistant
DX: M25.531 Pain in right wrist (principal)
CPT/HCPCS: 73110

== ENCOUNTER 2025-02-15 15:44 | Outpatient (CLI) | payer OTHER, SELFPAY ==
--- OUTSIDE RECORDS SUMMARY | 2025-02-17 11:17 | XMS_ITS | Clinical Summary ---
Author Organization [facility] Address [address] [place] [address] Care Team Providers Care Light Cleaner Name Role Phone Jonel Kat SIGNAL INTELLIGENCE ANALYST Primary Care Provider +1- [phone] Allergies Active Allergy Reactions Criticality Noted Date [...] Description 11/28/2024 9:17 AM EDT Anesthesia Event [facility] Operating Room [address] [place] [address] Juaquin Arnold MD 11/28/2024 9:10 AM EDT - 11/28/2024 10:50 AM EDT Surgery [facility] Operating Room [address] [place] [address] Chris Garcia MD URETEROSCOPY [[id number] (CPT )] 11/28/2024 6:33 AM EDT - 11/28/2024 10:56 AM EDT Hospital Encounter [facility] Operating Room [address] [place] [address] Chris Garcia MD Ureteral stone (Primary Dx) Discharge Disposition: Home or Self Care 11/28/2024 Telephone [facility]rology [address], [address] [place] [address] Christina Stewart LPN 11/28/2024 Telephone [facility] Urology [address], [address] [place] [address] Asael Canseco MD 11/28/2024 Travel 11/21/2024 1:45 PM EDT Consult Medical Office Building [facility], [address] [place] [address] Marga Valentin APRN Kidney stones (Primary Dx) 11/21/2024 Telephone [facility] [address], [address] [place] [address] Chris Garcia MD 11/21/2024 Travel from Last 3 Months Family History Medical [...] Info) Description 03/03/2025 12:00 PM EDT Appointment [facility] Ultrasound [address] [place] [address] 03/03/2025 1:50 PM EDT Office Visit [facility] [address], [address] [place] [address] Olga Last PA [address] [place] [address] Health Maintenance Due Date Last Done Comments [facility]-HIV Screening 1985 [facility]-Hepatitis C Screening 1985 [facility]-Infant/Child/Adol SDOH Screenings 1985 [facility]-Varicella Vaccines (1 of 2 - 13+ 2-dose series) 1998 HPV Vaccines (1 - 3-dose series) 2000 [facility]- SDOH Screenings 2003 [facility]-Adult SDOH Screenings 2003 [facility]-Hepatitis B Vaccines (1 of 3 - 19+ 3-dose series) 2004 [facility]-Pneumococcal Vaccine: Pediatrics (0 to 5 Years) and At-Risk Patients (6 to 49 Years) (1 of 2 - PCV) 2004 FYX-MIPCU-02 Vaccine (2 - 2023- season) 2024 08/26/2021 [facility]-Influenza Vaccine (#1) 04/07/202505/16, 05/24/2023, 06/22/2022, Additional history exists [facility]-Depression Screening 11/21/2025 11/21/2024, 11/05 [facility]-DTaP,Tdap,and Td Vaccines (3 - Td or Tdap) 05/16/2034 05/16/2024, 12/02/2014 [facility]-Zoster Vaccines (1 of 2) 2035 [facility]-Obesity Intervention Completed 11/21/2024 [facility]-HIB Vaccines Aged [...] this topic Medical Devices Implanted Type Area Front Office Secretary Device Identifier Shelf Expiration Date Model / Serial / Lot Stent Ureteral Double Pigtail Pos 5fr 24cm - [id number] Implanted:Qty: 1 on 11/28/2024 by Chris Garcia MD at [facility] Right: [id number] 04/03/2026 [id number] / / [id number] Procedures Procedure Name Priority Date/Time Associated Diagnosis Comments FL LESS THAN 1 HOUR (NON-REPORTABLE) Routine 11/28/2024 10:02 AM EDT OXYGEN THERAPY Routine 11/28/2024 9:56 AM EDT PB ANESTHESIA PLACEHOLDER Routine 11/28/2024 9:30 AM EDT OH AN ELECTIVE SUPRAGLOTTIC AIRWAY Routine 11/28/2024 9:30 AM EDT CYSTOSCOPY, WITH URETERAL STENT INSERTION OR REMOVAL 11/28/2024 9:05 AM EDT Calculus of kidney CYSTOSCOPY, WITH RETROGRADE PYELOGRAM 11/28/2024 9:05 AM EDT Calculus of kidney OH CYSTO/URETERO/PYELOSC OPY, DX 11/28/2024 9:05 AM EDT Calculus of kidney URINE CULTURE Routine 11/21/2024 2:29 PM EDT Kidney stones from Last 3 Months Results * FL Less than 1 Hour Intraoperative (11/28/2024 10:02 AM EDT) Narrative IMAGING - 11/28/2024 10:04 AM EDT Images were obtained for surgical purposes. See Chris Garcia's surgical note in the patient's chart for the findings. Chris Garcia MD IMG FLUOROSCOPY PROCEDURES Final Result IMAGING * OH AN ELECTIVE SUPRAGLOTTIC AIRWAY, PB ANESTHESIA PLACEHOLDER [...] skin verenice present. 11/22/2024 2:56 PM EDT [facility] Urine Urine specimen obtained by clean catch procedure / Unknown Non-blood Collection / Unknown 11/21/2024 2:29 PM EDT 11/21/2024 4:51 PM EDT Marga Valentin APRN LAB MICROBIOLOGY - GENERAL ORDERABLES Final Result [facility] [address] [place] [address] from Last 3 Months Insurance [employer]ETNA [facility] MEDICAID Care Teams Light Cleaner Relationship Specialty Start Date End Date Jonel Kat APRN [address] [place] [address] [place] [address] PCP - General 12/18/20
--- OUTSIDE RECORDS SUMMARY | 2025-02-17 11:17 | XMS_ITS | Encounter Summary ---
Author Organization Healthcare Address [address] [place] [address] Care Team Providers Care Multi Mission Helicopter Aircrewman Name Role Phone Jonel Kat APRN Primary Care Provider +1- [phone] Encounter Details Date Type Department Care Team (Late st Contact Info) Description 01/26/2017 Orders Only External Location [address] [place] [address] Provider, External Social History Tobacco Use Types [...] Info) Description 03/03/2025 12:00 PM EDT Appointment [facility] Ultrasound [address] [place] [address] 03/03/2025 1:50 PM EDT Office Visit [place] [facility] [address] [place] [address] Olga Last PA [address] [place] [address] documented as of this encounter Procedures Procedure [...] on filedocumented in this encounter Care Teams Multi Mission Helicopter Aircrewman Relationship Specialty Start Date End Date Jonel Kat APRN [address] [place] [address] PCP - General 12/18/20 documented as of this encounter
--- OUTSIDE RECORDS SUMMARY | 2025-02-17 11:17 | XMS_ITS | Continuity of Care Document ---
Author Organization [place] - [employer], [facility] Address [address] [place] [address] Assessment No assessment recorded. Plan of Treatment Reminders Order Date Submit Date Provider Last Modified By Organization Details Last Modified Time Details Appointments FOLLOW UP 2024 03:00P M Kisha Wilde PA-C Not available Not available Not available Lab None recorded. Referral None recorded. Procedures None recorded. Surgeries None recorded. Imaging XR, wrist, 3 or more view 2024 025 [facility] (X-Ray), [address], [place], [address], 01/31/2025 15:46:24 Medication Orders cephalexi n 500 mg capsule 2024 025 [facility], [address] [place] [address] Jhon[place], [id number], 01/30/2025 17:36:02 tramadol 50 mg tablet 2024 025 [facility], [address] [place] [address] [place], [id number], 01/30/2025 17:36:02 Patient TargetsNo targets recorded. Patient InstructionsNo instructions recorded. Reason for Referral None Reported. Results Created Date Observation Date Name Description Value Unit Range Abnormal Flag Note LastModifiedBy Organization Detail LastModifiedTime 02/01/2001/31/2025 XR, wrist , 3 or more view No observ ation record ed. [facility] (Med Record) [address], [place], [address], 01/31/2025 16:29:11 Result Notes None recorded. Problems Name Problem SNOMED Code Status Onset Date Resolution Date Notes Provider Name and Address Organization Details Recorded Time Neck pain 26303704 Active 2023 CHRISTAL Villegas [address] [place] [address], [address], [employer] 5 14:17:18 Cervical disc disorder with radiculop athy 984196442 Active 2023 CHRISTAL Villegas [address] [place] [address], [address], [employer] 5 14:17:04 Depressiv e disorder 34532004 Active 2023 CHRISTAL Villegas [address] [place] [address], [address], [employer] 4 11:14:18 Acute right otitis media 207908553 Completed 202410/24/2024 CHRISTAL Villegas [address] [place] [address], [address], [employer] 5 14:17:10 Acute urinary tract infection 150054019 Completed 202410/24/2024 CHRISTAL Villegas [address] [place] [address], [address], [employer] 5 14:17:14 Spasm of back muscles 600682399 Active 2024 CHRISTAL Villegas [address] [place] [address], [address], [employer] 5 14:17:22 Pain of right knee joint 042508909804 100 Active 2024 CHRISTAL Villegas [address] [place] [address], [address], [employer] 5 14:17:20 Kidney stone 70666126 Active 2024 CHRISTAL Villegas [address] [place] [address], [address], [employer] 10:54:38 Disorder of right sciatic nerve 804981817929 102 Active 2024 CHRISTAL Villegas [address] [place] [address], [address], [employer] 15:50:22 Pain of right wrist 163278182343 100 Active 2024 CHRISTAL Villegas [address] [place] [address], [address], [employer] 17:16:02 Laceratio n of right wrist 698641276220 99729 Active 2024 CHRISTAL Villegas [address] [place] [address], [address], [employer] 17:17:24 Problem Notes None recorded. Procedures Surgical History Date Name Laterality Status Provider Name and Address Organization Details Recorded Time 07/10/20 Date of Last Pap Smear completed [employer] 10/24/2024 08:20:46 Hysterectomy completed [facility] [facility] 05/16/2024 12:59:56 Endometrial Ablation completed [employer] 05/16/2024 12:59:57 Gallbladder Surgery completed [employer] 05/16/2024 12:59:57 Endometrial Biopsy completed [employer] 05/16/2024 12:59:57 Dilation and Curettage completed [employer] 05/16/2024 13:03:45 Imaging Results None recorded. Procedure Notes None recorded. Medical Equipment None Reported. Allergies Allergen ID Allergen Name Allergen Category Reaction Reaction Severity Criticality Documentation Date Start Date Code Code System Note Provider Name and Address Organization Details Recorded Time 61118 aspirin medicatio n other Not available Not available 05/16/2024 1191 RxNorm [employer] 4 12:59:54 62502 adhesive environme nt,medica tion rash Not available Not available 05/16/2024 38494 UNK Jayne reinoso, [employer] 13:00:26 Medications Name Sig Start Date Stop Date Status Note LastModified by Organization Details LastModified Time cyclobenzap rine 10 mg tablet TAKE ONE TABLET BY MOUTH 3 TIMES A DAY FOR MUSCLE SPASM active Not Available Not Available No t [...] Available Not Available tramadol 50 mg tablet TAKE 1 TABLET BY MOUTH EVERY 6 HOURS NEEDED FOR PAIN active Not Available Not Available No t Available ketorolac 10 mg tablet TAKE ONE [...] Available Not Available cephalexin 500 mg capsule TAKE 1 CAPSULE BY MOUTH EVERY 6 HOURS FOR 10 DAYS active Not Available Not Available No t Available lansoprazol e 30 mg capsule,del ayed [...] Not Available pregabalin 75 mg capsule TAKE 1 CAPSULE BY MOUTH 2 TIMES A DAY active Not Available Not Available No t Available cholecalcif kendy (vitamin D3) 1,250 mcg (50,000 unit) capsule 01/27 completed Not Available Not Available Not Available Vraylar 1.5 mg capsule 05/15 completed Not Available Not Available Not Available Vitals Date Recorded Body height Body mass index (BMI) Body weight Heart rate Oxygen saturation Oxygen saturation in Arterial blood by Pulse oximetry Body temperature Systolic And Diastolic Provider Name and Address Organization Details Last Updated DateTime 5 170.81 cm 30 kg/m2 61107.6 1 g 92 /min 97 % 97 % 98.6 [degF] 122/86 mm[Hg] Jayne Garcia [employer] 17:07:49 Social History Question Answer Notes LastModified by Organizat ion Details LastModified Time Tobacco Smoking Status Current Every Day Smoker Jayne Garcia [employer], [employer] 05/16/2024 12:59:56 Do You Have An Advance [...] Information not available 05/16/2024 What Type Of Plug Stitcher Do You Use? None Information not available [...] Do You Have A Medical Power Of Counter Caser? No Information not available 05/16/2024 What Was [...] anxious, or unable to sleep at night)? [id number] Information not available 08/08/2024 Do you have [...] COPD N Depression Y Dermatologic Disorders N Lung Disease N Hypothyroidism N Developmental or Behavioral Disorders N Defects [...] N High Cholesterol N Liver Disease N Psychiatric/Mental Health Condition N Organ Transplant N Fibromyalgia N Headaches Y Schizophrenia N Dialysis N Kidney Disease N Allergies/Hayfever N Heart [...] virus, trivalent, PF 4 completed CHRISTAL Villegas [address] [place] [address], [address], [employer] 05/16/2024 16:13:50 Tdap 4 completed CHRISTAL Villegas [address] [place] [address], [address], [employer] 05/16/2024 16:13:50 Influenza, split virus, quadrivalent, preservative 6 completed Jayne Vice null, [employer] 08/08/2024 10:11:19 Influenza, split virus, quadrivalent, preservative 9 completed Jayne Vice null, [employer] 08/08/2024 10:11:19 COVID-19, mRNA, LNP-S, PF, 30 mcg/0.3 mL dose, umberto-sucrose 2 completed Jayne Vice null, [employer] 08/08/2024 10:11:19 Tdap 5 completed Jayne Vice null, [employer] 08/08/2024 10:11:19 Influenza, split virus, trivalent, preservative 2 completed Jayne Vice null, [employer] 08/08/2024 10:11:19 Influenza, split virus, trivalent, preservative 7 completed Jayne Vice null, [employer] 08/08/2024 10:11:19 Influenza, split virus, quadrivalent, PF 7 completed Jayne Vice null, [employer] 08/08/2024 10:11:19 Influenza, split virus, quadrivalent, PF 3 completed Jayne Vice null, [employer] 08/08/2024 10:11:19 Influenza, split virus, quadrivalent, PF 1 completed Jayne Vice null, [employer] 08/08/2024 10:11:19 Influenza, split virus, quadrivalent, PF 2 completed Jayne Vice null, [employer] 08/08/2024 10:11:19 Influenza, split virus, quadrivalent, PF 0 completed Jayne Vice null, [employer] 08/08/2024 10:11:19 Influenza, split virus, quadrivalent, PF 8 completed Jayne Vice null, [employer] 08/08/2024 10:11:19 Tdap 5 completed Not Available [facility] 01/30/2025 17:01:46 Past Encounters Encounter ID Performer Location Encounter Start Date Encounter Closed Date Diagnosis/Indication Diagnosis SNOMED-CT Code Diagnosis ICD10 Code Diagnosis Note [id number] CHRISTAL Villegas [facility] [address] [place] [address] 01/27/2025 14:30:07 01/27/2025 15:48:19 Disorder of right sciatic nerve 2044987617 30982 M54.31 Cervical d isc disorder with radiculopathy 301935791 M50.10 [id number] CHRISTAL Villegas [facility] [address] [place] [address] 01/30/2025 17:01:21 01/30/2025 17:15:53 Pain of right wrist 2318610829 78804 M25.531 Laceration of right wrist 9462284813 8738787 S61.511A Health Concerns Section Related Observation LastModified by Organization Detai ls LastModified Time None Recorded Concern Status LastModified by Organization Details LastModified Time None Recorded Payers Encounter Date Sequence Insurance Name Policy Number Policy Schafer Covered Member ID Schafer Member ID Guarantor Name 01/30/2025 1 [employer] [facility] (MEDICAID HMO) Dipika Garzon [id number] Dipika Garzon Notes Date Note Type Note Provider Name and Address Organization Details Recorded Time 01/30/2025 text/html Patient locked her keys in her car on 01/28, then punched the window with a rock to break the glass. Laceration to right thumb/wrist. Had 12 sutures in ER. Still very painful to move. CHRISTAL Villegas [address] [place] [address], [phone], [facility] [employer] 01/30/2025 17:23:19 OBGyn Episode No OBEpisode recorded.
--- OUTSIDE RECORDS SUMMARY | 2025-02-17 11:17 | XMS_ITS | Encounter Summary ---
Author Organization Healthcare Address [address] [place] [address] Care Team Providers Care Glaze Grinder Name Role Phone Jonel Kat APRN Primary Care Provider +1- [phone] Encounter Details Date Type Department Care Team (Late st Contact Info) Description 10/09/2015 Orders Only External Location [address] [place] [address] Provider, External Social History Tobacco Use Types [...] Info) Description 03/03/2025 12:00 PM EDT Appointment [facility] Ultrasound [address] [place] [address] 03/03/2025 1:50 PM EDT Office Visit [place] [facility] [address] [place] [address] Olga Last PA [address] [place] [address] documented as of this encounter Procedures Procedure [...] on filedocumented in this encounter Care Teams Glaze Grinder Relationship Specialty Start Date End Date Jonel Kat APRN [address] [place] [address] PCP - General 12/18/20 documented as of this encounter
--- OUTSIDE RECORDS SUMMARY | 2025-02-17 11:17 | XMS_ITS | Data Portability ---
Author Organization [facility] [employer] [place] - [place] Address [address] [place] [address] Assessment No assessment recorded. Plan of Treatment Reminders Order Date Submit Date Provider Last Modified By Organization Details Last Modified Time Details Appointments FOLLOW UP 2024 03:00P Baylee Wilde PA-C Not available Not available Not available Lab urinalysi s, dipstick [address], [address] [place] [address], [place], [address], 09/05/2024 10:55:28 culture, urine 2024 025 [place] [facility], [address] [place] [address], [place], [address], 09/07/2024 04:07:07 Referral urologist referral - STAT 2024 025 [facility], [address], [address] [facility], [place], [address], 11/27/2024 08:47:23 orthopedi c surgeon referral - first available appt 2024 025 [facility], [address], [place], [address], 11/21/2024 14:31:07 Procedures None recorded. Surgeries None recorded. Imaging XR, wrist, 3 or more view 2024 025 [facility] (X-Ray), [address], [place], [id number], 01/31/2025 15:46:24 Medication Orders cephalexi n 500 mg capsule [address] [facility], [address] [place] [address] S, [place], [id number], 01/30/2025 17:36:02 tramadol 50 mg tablet [address] [facility], [address] [place] [address] S, [place], [id number], 01/30/2025 17:36:02 Medrol (Librado) 4 mg tablets in a dose pack [address] [facility], [address] [place] [address] S, [place], [id number], 01/27/2025 16:18:03 lidocaine 5 % topical patch [address] [facility], [address] [place] [address] S, [place], [id number], 01/27/2025 16:18:04 pregabali n 75 mg capsule [address] [facility], [address] [place] [address] S, [place], [id number], 02/05/2025 09:48:49 ketorolac 60 mg/2 mL intramusc ular solution 2024 025 Not available 01/07/2025 11:40:51 ketorolac 10 mg tablet [address] [facility], [address] [place] [address] S, [place], [id number], 01/07/2025 11:46:10 sertralin e 50 mg tablet [address] [facility], [address] [place] [address] [place], [id number], 01/27/2025 15:22:47 cyclobenz aprine 10 mg tablet [address] [facility], [address] [place] [address], [id number], 10/24/2024 16:37:33 cyclobenz aprine 10 mg tablet [address] [facility], [address] [place] [address] [place], [id number], 09/05/2024 11:03:19 levofloxa cm 500 mg tablet [address] [facility], [address] [place] [address], [id number], 10/24/2024 08:44:30 Pyridium 200 mg tablet 2024 025 [facility], [address] [place] [address], [id number], 10/24/2024 08:44:39 Patient TargetsNo targets recorded. Patient Instructions Encounter Date Encounter Id Patient Instructions Last Modified By Organization Details Last Modified Time 11/14/2024 [id number] kidney stone: care instructions [id number] Not available 11/14/2024 11:13:08 learning about diet for kidney stone prevention [id number] Not available 11/14/2024 11:13:08 Reason for Referral [...] ===== ===== ===== === Not Available [facility] ([facility]) [address] [place], [address], 08/11/2024 10:06:39 08/08/1908/11/2024 TOXAS SURE FLEX 19, UR pdf . Not Available [facility] ([facility]) [address] [place], [address], 08/11/2024 10:06:39 08/08/1908/11/2024 TOXAS SURE FLEX 19, UR creatinine 62 mg/dL REFER ENCE RANGE : Ref Range >=20 Not Available [facility] ([facility]) [address] [place], [address], 08/11/2024 10:06:39 08/08/1908/11/2024 TOXAS SURE FLEX 19, UR amphetamines ia NEGATI VE NG/mL cutoff :300 Not Available [facility] ([facility]) [address] [place], [address], 08/11/2024 10:06:39 08/08/19 25 08/11/2024 TOXAS SURE FLEX 19, UR benzodiazepi binh NEGATI VE Not Available [facility] ([facility]) [address] [place], [address], 08/11/2024 10:06:39 08/08/19 25 08/11/2024 TOXAS SURE FLEX 19, UR diazepam NOT DETECT ED NG/mg _crea t Not Available [facility] ([facility]) [address] [place], [address], 08/11/2024 10:06:39 08/08/19 25 08/11/2024 TOXAS SURE FLEX 19, UR desmethyldia zepam NOT DETECT ED NG/mg _crea t Not Available [facility] ([facility]) [address] [place], [address], 08/11/2024 10:06:39 08/08/19 25 08/11/2024 TOXAS SURE FLEX 19, UR oxazepam NOT DETECT ED NG/mg _crea t Not Available [facility] ([facility]) [address] [place], [address], 08/11/2024 10:06:39 08/08/19 25 08/11/2024 TOXAS SURE [...] kaela Oxaze kaela: None Not Available [facility] ([facility]) [address] [place], [address], 08/11/2024 10:06:39 08/08/19 25 08/11/2024 TOXAS SURE FLEX 19, UR alprazolam NOT DETECT ED NG/mg _crea t Not Available [facility] ([facility]) [address] [place], [address], 08/11/2024 10:06:39 08/08/19 25 08/11/2024 TOXAS SURE FLEX 19, UR alpha-hydrox yalprazolam NOT DETECT ED NG/mg _crea t Not Available [facility] ([facility]) [address] [place], [address], 08/11/2024 10:06:39 08/08/19 25 08/11/2024 TOXAS SURE FLEX 19, UR desalkylflur azepam NOT DETECT ED NG/mg _crea t Not Available [facility] ([facility]) [address] [place], [address], 08/11/2024 10:06:39 08/08/19 25 08/11/2024 TOXAS SURE FLEX 19, UR lorazepam NOT DETECT ED NG/mg _crea t Not Available [facility] ([facility]) [address] [place], [address], 08/11/2024 10:06:39 08/08/19 25 08/11/2024 TOXAS SURE FLEX 19, UR alpha-hydrox ytriazolam NOT DETECT ED NG/mg _crea t Not Available [facility] ([facility]) [address] [place], [address], 08/11/2024 10:06:39 08/08/19 25 08/11/2024 TOXAS SURE FLEX 19, UR clonazepam NOT DETECT ED NG/mg _crea t Not Available [facility] ([facility]) [address] [place], [address], 08/11/2024 10:06:39 08/08/19 25 08/11/2024 TOXAS SURE FLEX 19, UR 7-aminoclona zepam NOT DETECT ED NG/mg _crea t Not Available [facility] ([facility]) [address] [place], [address], 08/11/2024 10:06:39 08/08/19 25 08/11/2024 TOXAS SURE FLEX 19, UR midazolam NOT DETECT ED NG/mg _crea t Not Available [facility] ([facility]) [address] [place], [address], 08/11/2024 10:06:39 08/08/19 25 08/11/2024 TOXAS SURE FLEX 19, UR alpha-hydrox ymidazolam NOT DETECT ED NG/mg _crea t Not Available [facility] ([facility]) [address] [place], [address], 08/11/2024 10:06:39 08/08/19 25 08/11/2024 TOXAS SURE FLEX 19, UR flunitrazepa m NOT DETECT ED NG/mg _crea t Not Available [facility] ([facility]) [address] [place], [address], 08/11/2024 10:06:39 08/08/19 25 08/11/2024 TOXAS SURE FLEX 19, UR desmethylflu nitrazepam NOT DETECT ED NG/mg _crea t Not Available [facility] ([facility]) [address] [place], [address], 08/11/2024 10:06:39 08/08/19 25 08/11/2024 TOXAS SURE FLEX 19, UR cocaine metabolite ia NEGATI VE NG/mL cutoff :150 Not Available [facility] ([facility]) [address] [place], [address], 08/11/2024 10:06:39 08/08/19 25 08/11/2024 TOXAS SURE FLEX 19, UR ethanol biomarkers ia NEGATI VE NG/mL cutoff :500 Not Available [facility] ([facility]) [address] [place], [address], 08/11/2024 10:06:39 08/08/19 25 08/11/2024 TOXAS SURE FLEX 19, UR cannabinoids ia COMMEN T NG/mL cutoff :20 Furth er testi ng indic ated Not Available [facility] ([facility]) [address] [place], [address], 08/11/2024 10:06:39 08/08/19 25 08/11/2024 TOXAS SURE FLEX 19, UR 6-acetylmorp lizette ia NEGATI VE NG/mL cutoff :10 Not Available [facility] ([facility]) [address] [place], [address], 08/11/2024 10:06:39 08/08/19 25 08/11/2024 TOXAS SURE FLEX 19, UR opiate class ia NEGATI VE NG/mL cutoff :100 Not Available [facility] ([facility]) [address] [place], [address], 08/11/2024 10:06:39 08/08/19 25 08/11/2024 TOXAS SURE FLEX 19, UR oxycodone class ia NEGATI VE NG/mL cutoff :100 Not Available [facility] ([facility]) [address] [place], [address], 08/11/2024 10:06:39 08/08/19 25 08/11/2024 TOXAS SURE FLEX 19, UR methadone ia NEGATI VE NG/mL cutoff :100 Not Available [facility] ([facility]) [address] [place], [address], 08/11/2024 10:06:39 08/08/19 25 08/11/2024 TOXAS SURE FLEX 19, UR methadone mtb ia NEGATI VE NG/mL cutoff :100 Not Available [facility] ([facility]) [address] [place], [address], 08/11/2024 10:06:39 08/08/19 25 08/11/2024 TOXAS SURE FLEX 19, UR buprenorphin e ia NEGATI VE NG/mL cutoff :5.0 Not Available [facility] ([facility]) [address] [place], [address], 08/11/2024 10:06:39 08/08/19 25 08/11/2024 TOXAS SURE FLEX 19, UR fentanyl ia NEGATI VE NG/mL cutoff :2.0 Not Available [facility] ([facility]) [address] [place], [address], 08/11/2024 10:06:39 08/08/19 25 08/11/2024 TOXAS SURE FLEX 19, UR tapentadol ia NEGATI VE NG/mL cutoff :200 Not Available [facility] ([facility]) [address] [place], [address], 08/11/2024 10:06:39 08/08/19 25 08/11/2024 TOXAS SURE FLEX 19, UR propoxyphene ia NEGATI VE NG/mL cutoff :300 Not Available [facility] ([facility]) [address] [place], [address], 08/11/2024 10:06:39 08/08/19 25 08/11/2024 TOXAS SURE FLEX 19, UR tramadol ia NEGATI VE NG/mL cutoff :200 Not Available [facility] ([facility]) [address] [place], [address], 08/11/2024 10:06:39 08/08/19 25 08/11/2024 TOXAS SURE FLEX 19, UR methylphenid ate ia NEGATI VE NG/mL cutoff :100 Not Available [facility] ([facility]) [address] [place], [address], 08/11/2024 10:06:39 08/08/19 25 08/11/2024 TOXAS SURE FLEX 19, UR barbiturates ia NEGATI VE NG/mL cutoff :200 Not Available [facility] ([facility]) [address] [place], [address], 08/11/2024 10:06:39 08/08/19 25 08/11/2024 TOXAS SURE FLEX 19, UR phencyclidin e ia NEGATI VE NG/mL cutoff :25 Not Available [facility] ([facility]) [address] [place], [address], 08/11/2024 10:06:39 08/08/19 25 08/11/2024 TOXAS SURE FLEX 19, UR gabapentin ia NEGATI VE ug/mL cutoff :1.0 Not Available [facility] ([facility]) [address] [place], [address], 08/11/2024 10:06:39 08/08/19 25 08/11/2024 TOXAS SURE FLEX 19, UR anticonvulsa nts NEGATI VE Not Available [facility] ([facility]) [address] [place], [address], 08/11/2024 10:06:39 08/08/19 25 08/11/2024 TOXAS SURE FLEX 19, UR pregabalin NOT DETECT ED Not Available [facility] ([facility]) [address] [place], [address], 08/11/2024 10:06:39 08/08/19 25 08/11/2024 TOXAS SURE FLEX 19, UR carisoprodol ia NEGATI VE NG/mL cutoff :100 Not Available [facility] ([facility]) [address] [place], [address], 08/11/2024 10:06:39 08/08/19 25 08/11/2024 CANNA SANDEEPOI DS, MS, UR RFX cannabinoids +POSIT FATOU+ Not Available [facility] ([facility]) [address] [facility], [place], [address], 08/11/2024 10:06:40 08/08/19 25 08/11/2024 SHERRI DALAL [...] other sherri dalal ds. Not Available [facility] ([facility]) [address] [facility], [place], [address], 08/11/2024 10:06:40 09/05/19 25 09/07/2024 URINE CULTU RE, ROUTI NE urine culture, routine Final report Not Available [facility] ([facility]) [address] [facility], [place], [address], 09/07/2024 04:07:07 09/05/19 25 09/07/2024 URINE CULTU RE, ROUTI NE result 1 No growth Not Available [facility] ([facility]) [address] [facility], [place], [address], 09/07/2024 04:07:07 09/05/19 25 09/05/2024 urina lysis , dipst ick Leukocytes Negati ve Not Available [facility] [address] [facility] [place], [place], [address], 09/05/2024 10:34:28 09/05/19 25 09/05/2024 urina lysis , dipst ick Nitrite negati ve Not Available [facility] [address] [facility] [place], [place], [address], 09/05/2024 10:34:28 09/05/19 25 09/05/2024 urina lysis , dipst ick Urobilinogen .2 Not Available [address], [place], [address], 09/05/2024 10:34:28 09/05/19 25 09/05/2024 urina lysis , dipst ick Protein Negati ve Not Available [address], [place], [address], 09/05/2024 10:34:28 09/05/19 25 09/05/2024 urina lysis , dipst ick pH 6.0 Not Available [address], [place], [address], 09/05/2024 10:34:28 09/05/19 25 09/05/2024 urina lysis , dipst ick Blood Non-He molyze d: Trace Not Available [address], [place], [address], 09/05/2024 10:34:28 09/05/19 25 09/05/2024 urina lysis , dipst ick Specific [place] 1.025 Not Available [address], [place], [address], 09/05/2024 10:34:28 09/05/19 25 09/05/2024 urina lysis , dipst ick Ketone Negati ve Not Available [address], [place], [address], 09/05/2024 10:34:28 09/05/19 25 09/05/2024 urina lysis , dipst ick Bilirubin Negati ve Not Available [address], [place], [address], 09/05/2024 10:34:28 09/05/19 25 09/05/2024 urina lysis , dipst ick Glucose Negati ve Not Available [address], [address], 09/05/2024 10:34:28 09/05/19 25 09/05/2024 urina lysis , dipst ick Appearance Clear Not Available [address], [address], 09/05/2024 10:34:28 09/05/19 25 09/05/2024 urina lysis , dipst ick Color Dark Yellow Not Available [address], [address], 09/05/2024 10:34:28 02/01/20 25 01/31/2025 XR, wrist , 3 or more view No observ ation record ed. [facility] (Med Record) [address], [place], [address], 01/31/2025 16:29:11 Result Notes None recorded. Problems Name Problem SNOMED Code Status Onset Date Resolution Date Notes Provider Name and Address Organization Details Recorded Time Neck pain 03964472 Active 2023 CHRISTAL Villegas [address] [place] [address], [address], [email or web address] 5 14:17:18 Cervical disc disorder with radiculop athy 354476924 Active 2023 CHRISTAL Villegas [address] [place] [address], [address], [email or web address] 5 14:17:04 Depressiv e disorder 31256106 Active 2023 CHRISTAL Villegas [address] [place] [address], [address], [place] [email or web address] 4 11:14:18 Acute right otitis media 307654029 Completed 202410/24/2024 CHRISTAL Villegas [address] [place] [address], [address] 8, [place] [email or web address] 5 14:17:10 Acute urinary tract infection 482984965 Completed 202410/24/2024 CHRISTAL Villegas [address] [place] [address], [address], [place] [email or web address] 5 14:17:14 Spasm of back muscles 955892517 Active 2024 CHRISTAL Villegas [address] [place] [address], [address], [place] [email or web address] 5 14:17:22 Pain of right knee joint 210531271682 100 Active 2024 CHRISTAL Villegas [address] [place] [address], [address] 8, [place] [email or web address] 5 14:17:20 Kidney stone 96709739 Active 2024 CHRISTAL Villegas [address] [place] [address], [address] 8, [place] [employer] 5 10:54:38 Disorder of right sciatic nerve 044607722676 102 Active 2024 CHRISTAL Villegas [address] [place] [address], [address] 8, [place] [email or web address] 5 15:50:22 Pain of right wrist 333605053510 100 Active 2024 CHRISTAL Villegas [address] [place] [address], [address] 8, [place] [employer] 5 17:16:02 Laceratio n of right wrist 851861793834 46780 Active 2024 CHRISTAL Villegas [address] [place] [address], [address] 8, [place] [employer] 17:17:24 Problem Notes None recorded. Procedures Surgical History Date Name Laterality Status Provider Name and Address Organization Details Recorded Time 07/10/20 Date of Last Pap Smear completed [email or web address] 10/24/2024 08:20:46 [facility]sterectomy [facility] 05/16/2024 12:59:56 Endometrial Ablation completed [email or web address] 05/16/2024 12:59:57 Gallbladder Surgery completed [email or web address]. 05/16/2024 12:59:57 Endometrial Biopsy completed [email or web address]. 05/16/2024 12:59:57 Dilation and Curettage completed [email or web address]. 05/16/2024 13:03:45 Imaging Results None recorded. Procedure Notes None recorded. Medical Equipment None Reported. Allergies Allergen ID Allergen Name Allergen Category Reaction Reaction Severity Criticality Documentation Date Start Date Code Code System Note Provider Name and Address Organization Details Recorded Time 09164 aspirin medicatio n other Not available Not available 05/16/2024 1191 [employer]. 12:59:54 94714 adhesive environme nt,medica tion rash Not available Not available 05/16/2024 88360 UNK [employer]. 13:00:26 Medications Name Sig Start Date Stop [...] Pulse oximetry Heart rate Body temperature Systolic And Diastolic Provider Name and Address Organization Details Last Updated DateTime 5 170.81 cm 31.3 kg/m2 78512.5 g 96 % 96 % 82 /min 98 [degF] 104/70 mm[Hg] [employer] 5 10:35:48 Date Recorded Body height Body mass index (BMI) Body weight Heart rate Oxygen saturation Oxygen saturation in Arterial blood by Pulse oximetry Body temperature Systolic And Diastolic Provider Name and Address Organization Details Last Updated DateTime 5 170.81 cm 31.8 kg/m2 11748.7 2 g 80 /min 96 % 96 % 98.2 [degF] 120/80 mm[Hg] [email or web address] 5 08:19:03 Date Recorded Body height Body mass index (BMI) Body weight Heart rate Oxygen saturation Oxygen saturation in Arterial blood by Pulse oximetry Body temperature Systolic And Diastolic Provider Name and Address Organization Details Last Updated DateTime 5 170.81 cm 32.5 kg/m2 36917.5 1 g 87 /min 98 % 98 % 98.7 [degF] 134/87 mm[Hg] Malaika Sampson [employer] 5 10:16:09 Date Recorded Body height Body mass index (BMI) Body weight Oxygen saturation Oxygen saturation in Arterial blood by Pulse oximetry Heart rate Body temperature Systolic And Diastolic Provider Name and Address Organization Details Last Updated DateTime 5 170.81 cm 30.3 kg/m2 98186.5 1 g 98 % 98 % 84 /min 98.5 [degF] 124/80 mm[Hg] Jayne Red [employer]. 5 15:17:09 Date Recorded Body height Body mass index (BMI) Body weight Heart rate Oxygen saturation Oxygen saturation in Arterial blood by Pulse oximetry Body temperature Systolic And Diastolic Provider Name and Address Organization Details Last Updated DateTime 5 170.81 cm 30 kg/m2 46286.6 1 g 92 /min 97 % 97 % 98.6 [degF] 122/86 mm[Hg] Jayne Red [employer]. 5 17:07:49 Social History Question Answer Notes LastModified by Organizat ion Details LastModified Time Tobacco Smoking Status Current Every Day Smoker [email or web address] 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 None Information not available [...] Do You Have A Medical Power Of Engineer [employer]? No Information not available 05/16/2024 What Was [...] anxious, or unable to sleep at night)? [id number] Information not available 08/08/2024 Do you have [...] room visit since last appointm ent. Y Hypothyroidism N Lung Disease N COPD N Dermatologic Disorders N Depression Y Defects or Inherited Disease N Developmental or [...] Psychiatric/Mental Health Condition N Organ Transplant N Dialysis N Fibromyalgia N Schizophrenia N Headaches Y Kidney Disease [...] N Pulmonary Embolism N Tourette Syndrome N Pre-Eclampsia N Hypertension N Chronic Ear Infections N Osteoporosis N Chicken Pox N Autism Spectrum Disorder (ASD) N Thrombophilias N Gynecological History Statement/Question Response [...] virus, trivalent, PF 4 completed CHRISTAL Villegas [address] [place] [address], [address], [email or web address] 05/16/2024 16:13:50 Tdap 4 completed CHRISTAL Villegas [address] [place] [address], [address], [email or web address] 05/16/2024 16:13:50 Influenza, split virus, quadrivalent, preservative 6 completed Jayne Vice null, [email or web address] 08/08/2024 10:11:19 Influenza, split virus, quadrivalent, preservative 9 completed Jayne Vice null, [email or web address] 08/08/2024 10:11:19 COVID-19, mRNA, LNP-S, PF, 30 mcg/0.3 mL dose, umberto-sucrose 2 completed Jayne Vice null, [email or web address] 08/08/2024 10:11:19 Tdap 5 completed Jayne Vice null, [email or web address] 08/08/2024 10:11:19 Influenza, split virus, trivalent, preservative 2 completed Jayne Vice null, [email or web address] 08/08/2024 10:11:19 Influenza, split virus, trivalent, preservative 7 completed Jayne Vice null, [email or web address] 08/08/2024 10:11:19 Influenza, split virus, quadrivalent, PF 7 completed Jayne Vice null, [email or web address] 08/08/2024 10:11:19 Influenza, split virus, quadrivalent, PF 3 completed Jayne Vice null, [email or web address] 08/08/2024 10:11:19 Influenza, split virus, quadrivalent, PF 1 completed Jayne Vice null, [email or web address] 08/08/2024 10:11:19 Influenza, split virus, quadrivalent, PF 2 completed Jayne Vice null, [email or web address] 08/08/2024 10:11:19 Influenza, split virus, quadrivalent, PF 0 completed Jayne Vice null, [email or web address] 08/08/2024 10:11:19 Influenza, split virus, quadrivalent, PF 8 completed Jayne Vice null, [email or web address] 08/08/2024 10:11:19 Tdap 5 completed Not Available [facility] 01/30/2025 17:01:46 Past Encounters Encounter ID Performer Location Encounter Start Date Encounter Closed Date Diagnosis/Indication Diagnosis SNOMED-CT Code Diagnosis ICD10 Code Diagnosis Note [id number] CHRISTAL Villegas [address] [address] 05/16/2024 12:50:39 05/16/2024 13:59:42 Administration of influenza vaccine 01875493 Z23 Neck pain 12217108 M54.2 Cervical d isc disorder with radiculopathy 739822661 M50.10 Increase [employer]rica[employer] er #[id number] reviewed today Administra tion of diphtheria, pertussis, and tetanus vaccine 708240473 Z23 Depressive disorder 3548 9007 F32.A [id number] CHRISTAL Villegas [address] [address] 08/08/2024 09:55:13 08/08/2024 10:37:24 Long-term drug therapy 383852160 Z79.899 Acute righ t otitis media 788016803 H66.91 Cervical d isc disorder with radiculopathy 563857322 M50.10 Body mass index 30+ - obesity 552566786 Z68.30 [id number] CHRISTAL Villegas [address] [address] 09/05/2024 10:13:54 09/05/2024 11:06:46 Low back pain 371626956 M54.50 Acute urin sarah tract infection 255157047 N39.0 Spasm of back muscles 20 3394313 M62.830 Cervical d isc disorder with radiculopathy 533195593 M50.10 [id number] CHRISTAL Villegas [address] [address] 10/24/2024 08:00:45 10/24/2024 08:47:48 Pain of right knee joint 6448759338 71836 M25.561 Cervical d isc disorder with radiculopathy 699636033 M50.10 [id number] CHRISTAL Villegas [address] [address] 11/14/2024 10:03:16 11/14/2024 11:39:31 Kidney stone 73596835 N20.0 reviewed ER recordsTor adol IM & POContinue FLomax, increase fluidsRefe r to urology for possible extraction Depressive disorder 3548 9007 F32.A [id number] CHRISTAL Villegas [facility] [address] [address] 01/27/2025 14:30:07 01/27/2025 15:48:19 Disorder of right sciatic nerve [id number] 94316 M54.31 Cervical d isc disorder with radiculopathy 675468751 M50.10 [id number] CHRISTAL Villegas [facility] [address] [place] [address] 01/30/2025 17:01:21 01/30/2025 17:15:53 Pain of right wrist 1691503513 58402 M25.531 Laceration of right wrist 7545758849 3559413 S61.511A Health Concerns Section Related Observation LastModified by Organization Detai ls LastModified Time None Recorded Concern Status LastModified by Organization Details LastModified Time None Recorded Advance Directives Directive N: Payers Insurance Date Sequence Insurance Name Policy Number Policy Schafer Covered Member ID Schafer Member ID Guarantor Name 01/26/2025 1 [facility] (MEDICAID HMO) Dipika Garzon [id number] Dipika Garzon Notes Date Note Type Note Provider Name and Address Organization Details Recorded Time 09/05/2024 text/html Low back pain, dysuria, frequency X 3 days. No fever. No nausea or vomiting. CHRISTAL Villegas [address] [place], [address], [email or web address] 09/05/2024 17:39:48 10/24/2024 text/html Patient presents for followup. Overall doing well. States that she is having right knee pain. States it makes grinding noises and hurts. Does not yet give out or get stuck, but is feeling progressively worse with time.Neck pain seems to be mostly better with meds. CHRISTAL Villegas [address] [place], [address], [email or web address] 10/24/2024 16:35:57 11/14/2024 text/html Patient presents [...] Still having severe pain. CHRISTAL Villegas [address] [place], [address], [email or web address], [employer] 11/14/2024 11:14:05 01/27/2025 text/html Patient presents for followup.History cervical disc disorder and needs refills on Lyrica which helps manage pain.Has flare of right sided sciatica and requests refills on Lidoderm patches CHRISTAL Villegas [address] [place], [address], [email or web address] 01/27/2025 17:41:26 01/30/2025 text/html Patient locked h er keys in her car on 01/28, then punched the window with a rock to break the glass.Laceration to right thumb/wrist. Had 12 sutures in ER. Still very painful to move. CHRISTAL Villgeas [address] [place], [address], [email or web address] 01/30/2025 17:23:19 OBGyn Episode No OBEpisode recorded.
--- OUTSIDE RECORDS SUMMARY | 2025-02-17 11:17 | XMS_ITS | Continuity of Care Document ---
Author Organization [place] [facility] [employer], [facility] Address [address] [place] [address] Assessment No assessment recorded. Plan of Treatment [...] tablets in a dose pack 2024 025 [facility], [address] [place] [address], [id number], 01/27/2025 16:18:03 lidocaine 5 % topical patch 2024 025 [facility], [address] [place] [address], [id number], 01/27/2025 16:18:04 pregabali n 75 mg capsule 2024 025 [facility], [address] [place] [address], [id number], 02/05/2025 09:48:49 Patient TargetsNo targets recorded. Patient InstructionsNo instructions recorded. Reason for Referral None Reported. Results Created Date Observation Date Name Description Value Unit Range Abnormal Flag Note LastModifiedBy Organization Detail LastModifiedTime 02/01/20 25 01/31/2025 XR, wrist , 3 or more view No observ ation record ed. [facility] (Med Record) [address], [place], [id number], 01/31/2025 16:29:11 Result Notes None recorded. Problems Name Problem SNOMED Code Status Onset Date Resolution Date Notes Provider Name and Address Organization Details Recorded Time Neck pain 30282761 Active 2023 CHRISTAL Villegas [address] [place] [address], [address], [employer] 5 14:17:18 Cervical disc disorder with radiculop athy 634641392 Active 2023 CHRISTAL Villegas [address] [place] [address], [address], [employer] 5 14:17:04 Depressiv e disorder 96920407 Active 2023 CHRISTAL Villegas [address] [place] [address], [address], [employer] 4 11:14:18 Acute right otitis media 381799386 Completed 202410/24/2024 CHRISTAL Villegas [address] [place] [address], [address], [employer] 5 14:17:10 Acute urinary tract infection 203506129 Completed 202410/24/2024 CHRISTAL Villegas [address] [place] [address], [address], [employer] 5 14:17:14 Spasm of back muscles 374739141 Active 2024 CHRISTAL Villegas [address] [place] [address], [address], [employer] 5 14:17:22 Pain of right knee joint 550682248650 100 Active 2024 CHRISTAL Villegas [address] [place] [address], [address], [employer] 14:17:20 Kidney stone 83261286 Active 2024 Kisha Wilde CHRISTAL [address] [place] [address], [address], [employer] 5 10:54:38 Disorder of right sciatic nerve 726423951491 102 Active 2024 Kisha WildeCHRISTAL [address] [place] [address], [address], [employer] 15:50:22 Pain of right wrist 287053115272 100 Active [address], [address], [employer] 17:16:02 Laceratio n of right wrist 783336711702 05063 Active 2024 Kisha Wilde [address], [address], [employer] 17:17:24 Problem Notes None recorded. Procedures Surgical History Date Name Laterality Status Provider Name and Address Organization Details Recorded Time 07/10/20 Date of Last Pap Smear completed [employer] 10/24/2024 08:20:46 Hysterectomy completed [employer] 05/16/2024 12:59:56 Endometrial Ablation completed [employer] 05/16/2024 12:59:57 Gallbladder Surgery completed [employer] 05/16/2024 12:59:57 Endometrial Biopsy completed [employer] 05/16/2024 12:59:57 Dilation and Curettage completed [employer] 05/16/2024 13:03:45 Imaging Results None recorded. Procedure Notes None recorded. Medical Equipment None Reported. Allergies Allergen ID Allergen Name Allergen Category Reaction Reaction Severity Criticality Documentation Date Start Date Code Code System Note Provider Name and Address Organization Details Recorded Time 03204 aspirin medicatio n other Not available Not available 05/16/2024 1191 RxNorm Jayne Vice null, [employer] 12:59:54 63640 adhesive environme nt,medica tion rash Not available Not available 05/16/2024 08501 UNK Jayne reinoso, [employer] 13:00:26 Medications Name Sig Start Date [...] and Address Organization Details Last Updated DateTime 170.81 cm 30.3 kg/m2 44248.5 1 g 98 % 98 % 84 /min 98.5 [degF] 124/80 mm[Hg] Jayne [employer] 15:17:09 Social History Question Answer Notes LastModified by Organizat ion Details LastModified Time Tobacco Smoking Status Current Every Day Smoker Jayne Garcia [employer] 05/16/2024 12:59:56 Do You Have An Advance [...] Information not available 05/16/2024 What Type Of Adult Health Clinical Nurse Specialist Do You Use? None Information not available [...] Do You Have A Medical Power Of Composition Worker? No Information not available 05/16/2024 What Was [...] anxious, or unable to sleep at night)? [id number] Information not available 08/08/2024 Do you have [...] virus, trivalent, PF 4 completed CHRISTAL Villegas [address] [place] [address], [address], [employer] 05/16/2024 16:13:50 Tdap 4 completed CHRISTAL Villegas [address] [place] [address], [address], [employer] 05/16/2024 16:13:50 Influenza, split virus, quadrivalent, preservative 6 completed Jayne Vice null, [employer] 08/08/2024 10:11:19 Influenza, split virus, quadrivalent, preservative 9 completed Jayne Vice null, [employer] 08/08/2024 10:11:19 COVID-19, mRNA, LNP-S, PF, 30 mcg/0.3 mL dose, umberto-sucrose 2 completed Jayne Vice null, [employer] 08/08/2024 10:11:19 Tdap 5 completed Jayne Vice null, [employer] 08/08/2024 10:11:19 Influenza, split virus, trivalent, preservative 2 completed Jayne Vice null, [employer] 08/08/2024 10:11:19 Influenza, split virus, trivalent, preservative 7 completed Jayne Vice null, [employer] 08/08/2024 10:11:19 Influenza, split virus, quadrivalent, PF 7 completed Jayne Vice null, [employer] 08/08/2024 10:11:19 Influenza, split virus, quadrivalent, PF 3 completed Jayne Vice null, [employer] 08/08/2024 10:11:19 Influenza, split virus, quadrivalent, PF 1 completed Janye Vice null, [employer] 08/08/2024 10:11:19 Influenza, split virus, quadrivalent, PF 2 completed Jayne Vice null, [employer] 08/08/2024 10:11:19 Influenza, split virus, quadrivalent, PF 0 completed Jayne Vice null, [employer] 08/08/2024 10:11:19 Influenza, split virus, quadrivalent, PF 8 completed Jayne Vice null, [employer] 08/08/2024 10:11:19 Tdap 5 completed Not Available [facility] 01/30/2025 17:01:46 Past Encounters Encounter ID Performer Location Encounter Start Date Encounter Closed Date Diagnosis/Indication Diagnosis SNOMED-CT Code Diagnosis ICD10 Code Diagnosis Note [id number] CHRISTAL Villegas [facility] [address] [place] [address] 01/27/2025 14:30:07 01/27/2025 15:48:19 Disorder of right sciatic nerve 7313506347 47387 M54.31 Cervical d isc disorder with radiculopathy 803382695 M50.10 Health Concerns Section Related Observation LastModified by Organization Detai ls LastModified Time None Recorded Concern Status LastModified by Organization Details LastModified Time None Recorded Payers Encounter Date Sequence Insurance Name Policy Number Policy Schafer Covered Member ID Schafer Member ID Guarantor Name 01/27/2025 1 [employer] [facility] (MEDICAID HMO) Dipika Garzon [id number] Dipika Garzon Notes Date Note Type Note Provider Name and Address Organization Details Recorded Time 01/27/2025 text/html Patient presents for followup.Histor y cervical disc disorder and needs refills on Lyrica which helps manage pain.Has flare of right sided sciatica and requests refills on Lidoderm patches CHRISTAL Villegas [address] [place] [address], [place], [address], [facility] [employer] 01/27/2025 17:41:26 OBGyn Episode No OBEpisode recorded.
== END 2025-02-15 23:59 | disposition home or self-care (01) ==
LOC: LAB.DROPOF 02-17 11:15
PROVIDERS: PCP Student in an Organized Health Care Education/Training Program; Visit Provider Student in an Organized Health Care Education/Training Program
DX: R30.0 Dysuria (principal)
CPT/HCPCS: 87086; 87088; 87186

== ENCOUNTER 2025-04-08 09:52 | Emergency (ER) | payer OTHER, SELFPAY ==
[2025-04-08 09:54] VITALS: BP 136/71; PULSE 87; RESP 17; TEMP 36.8; O2SAT 98; BMI 28.1
--- OUTSIDE RECORDS SUMMARY | 2025-04-08 10:29 | XMS_ITS | Encounter Summary ---
Author Organization Healthcare Address [address] [place] [address] Care Team Providers Care Care Asst Name Role Phone Jonel Kat SECURITY CONTROL ASSESSOR Primary Care Provider [phone]- [phone] Encounter Details Date Type Department Care Team ([facility] st Contact Info) Description 01/26/2017 Orders Only External Location [address] [place] [address] Provider, External Social History Tobacco Use Types Packs/Day Years Used Date Smoking Tobacco: Never Assessed Comments Unknown Sex and Gender Information Value Date Recorded Sex Assigned at Not on file Legal Sex Female 7:27 PM EDT Gender Identity Not on file Sexual Orientation Not on file documented as of this encounter Plan of Treatment Not on file documented as of this encounter Procedures Procedure [...] on filedocumented in this encounter Care Teams Care Asst Relationship Specialty Start Date End Date Jonel Kat APRN [address] [place] [address] PCP - General 12/18/20 documented as of this encounter
--- OUTSIDE RECORDS SUMMARY | 2025-04-08 10:29 | XMS_ITS | Encounter Summary ---
Author Organization Healthcare Address [address] [id number] Care Team Providers Care Surgery Consultant Name Role Phone Jonel Kat ADVERTISING TEACHER Primary Care Provider [phone]- [phone] Encounter Details Date Type Department Care Team ([facility] st Contact Info) Description 10/09/2015 Orders Only External Location [address] [place] [address] Provider, External Social History Tobacco Use Types [...] on filedocumented in this encounter Care Teams Surgery Consultant Relationship Specialty Start Date End Date Jonel Kat APRN [address] [place] [address] PCP - General 12/18/20 documented as of this encounter
--- OUTSIDE RECORDS SUMMARY | 2025-04-08 10:29 | XMS_ITS | Clinical Summary ---
Author Organization [facility] Address [facility] [place] [address] Care Team Providers Care Gis Software Developer Name Role Phone Jonel Kat ELEVATOR BUILDER Primary Care Provider +1- [phone] Allergies Active Allergy Reactions Criticality Noted Date [...] (three) times a day as needed. Active Family History Medical History Relation Name Comments [...] 11/28/2024 7:40 AM EDT Plan of Treatment Health Maintenance Due Date Last Done Comments [facility]-HIV Screening 1985 [facility]-Hepatitis C Screening 1985 [facility]-/Child/Adol SDOH Screenings 1985 [facility]-Varicella Vaccines (1 of 2 - 13+ 2-dose series) 1998 [facility]- SDOH Screenings 2003 [facility]-Adult SDOH Screenings 2003 [facility]-Hepatitis B Vaccines (1 of 3 - 19+ 3-dose series) 2004 [facility]-Pneumococcal Vaccine: Pediatrics (0 to 5 Years) and At-Risk Patients (6 to 49 Years) (1 of 2 - PCV) 2004 HPV Vaccines (1 - 3-dose SCDM series) 2012 [facility]FL-DDLMO-88 Vaccine (2 - season) 2024 08/26/2021 [facility]-Influenza Vaccine (#1) 04/07/202505/16, [...] this topic Medical Devices Implanted Type Area Magneto Electrician Device Identifier Shelf Expiration Date Model / Serial / Lot Stent Ureteral Double Pigtail Pos 5fr 24cm - [id number] Implanted:Qty: 1 on 11/28/2024 by Chris Garcia MD at [facility] Right: [id number] 04/03/2026 [id number] / / [id number] Insurance [place] [id number] [facility] MEDICAID Care Teams Gis Software Developer Relationship Specialty Start Date End Date Jonel Kat APRN [address] [place] [address] [place] [id number] PCP - General 12/18/20
--- NOTE | 2025-04-08 10:30 | ED_ITS ---
<Statement entered by Abhinav Garzon MD - 04/08/25 15:17> I was consulted by the LATRELL, and we discussed the complexity of the problems being addressed. I approved the treatment and management plan for this patient's care in the emergency department, thus performing a substantive portion of the medical decision making. Abhinav Garzon MD, JOAO, FACEP Discharge Plan Disposition Patient Disposition: Home, Self-Care Condition: Good Prescriptions Prescriptions: New methylprednisolone [Medrol (Librado)] 4 mg tablets,dose pack 4 mg PO DAILY Qty: 21 0RF No Action nitrofurantoin monohyd/m-cryst 100 mg capsule 100 mg PO Q12H 7 Days Qty: 14 0RF Rx Instructions: must administer with a meal/food pregabalin [Lyrica] 50 mg capsule 50 mg PO BID Qty: 60 0RF sertraline 50 mg tablet See Rx Instructions .ROUTE .COMPLEX Qty: 90 0RF Dose Instruction: TAKE ONE TABLET BY MOUTH ONCE A DAY Rx Instructions: TAKE ONE TABLET BY MOUTH ONCE A DAY cyclobenzaprine 5 mg tablet 5 mg PO TID PRN (Reason: muscle spasm) Qty: 30 0RF tamsulosin [Flomax] 0.4 mg capsule 0.4 mg PO DAILY Qty: 20 0RF Referrals Follow up/Referrals: Elias Servin MD [Staff Physician, Pain Management] - See instructions Kisha Wilde PA [Primary Care Provider, Medical] - See instructions Activity Restrictions/Add. Instructions Additional Instructions/Restrictions: Please follow-up with your PCP in the upcoming days for physical therapy referral and MRI of your cervical spine, please return to the emergency department with any worsening signs or symptoms, please take all your medicine at home as prescribed for your symptoms, you can also take anti-inflammatory medicine such as Tylenol if needed. Please call pain management for appointment if your symptoms persist greater than 2 to 4 weeks. Clinical Impressions Clinical Impression: Cervical radiculopathy Instructions Patient Instructions: DI for Cervical Radiculopathy Print Language Print Language: Micronesian Discharge ED Provider: Abhinav Grazon General Adult HPI General Chief complaint: PAIN Stated complaint: R Shoulder Pain Time Seen by Provider: 04/08/25 10:13 Mode of Arrival: Ambulatory Source of Information: Patient Description of Symptoms (Recalled from ER Triage Doc. by RN): pt to the ED with right sided neck pain that radiates to her shoulder. pt denies any known injury but stated he woke up with the pain 2 days ago History of Present Illness HPI narrative: 39-year-old female presents to the emergency department with right-sided neck pain, no trauma or injury per history that started around 2 to 3 days ago patient that she just woke up with it , she endorses a posterior lateral radiculopathy stopping at the elbow, she denies any upper or lower extremity weakness, denies any fever chills chest pain shortness of breath, denies any nausea vomiting constipation diarrhea no urinary bladder or bowel dysfunction, no saddle anesthesia, no numbness or tingling of the bilateral upper or lower extremities. Patient has past medical history consistent with spinal stenosis of the lower lumbar spine, currently on Flexeril and Lyrica for this, sees outside physician/provider for this. Patient is a current everyday smoker, denies any alcohol or drug use, exception of occasional marijuana use, initial triage vitals are unremarkable. Other past medical history consistent with endometriosis, migraines, MDD. Please note that above description of symptoms, in this electronic medical record under categorization of recalled from ER triage doctor by RN are reflective of an initial nursing assessment, however, is not reflective of my full history and physical exam that was personally taken and clarified. Consequentially, this preceding description of symptoms, which may include the patient's categorized chief complaint in the EMR, do not reflect my personal clinical impression, and the ultimate description of history of present illness and patient stated complaints should be deferred to this section of the note. Unless stated otherwise or congruent with this section of the note, additional signs, symptoms, or incongruence should be interpreted as inaccurate with my clinical impression. Onset (ago): day(s) Related Data Previous Rx's ?Medication ?Instructions ?Recorded cyclobenzaprine 5 mg tablet 5 mg PO TID PRN muscle spa sm #30 03/10/24 tabs pregabalin 50 mg capsule (Lyrica) 50 mg PO BID #60 cap s 04/23/24 sertraline 50 mg tablet See Rx Instructions .Route 0 10/10/24 .COMPLEX #90 tabs tamsulosin 0.4 mg capsule (Flomax) 0.4 mg PO DAILY #20 caps 11/11/24 nitrofurantoin 100 mg PO Q12H 7 days #14 ca ps 02/15/25 monohydrate/macrocrystals 100 mg capsule methylprednisolone 4 mg tablets in 4 mg PO DAILY #21 t abs 04/08/25 a dose pack (Medrol (Librado)) Allergies Allergy/AdvReac Type Severity Reaction Status Date / Time ibuprofen (IBUPROFEN) Allergy Unknown STOMACH Verified 02/15/25 15:38 UPSET naproxen (NAPROXEN) Allergy Unknown STOMACH Verified 02/15/25 15:38 UPSET adhesive Allergy Unknown Verified 02/15/25 15:38 allergy [facility] Disclaimer: The information contained in this section may have been updated after the patient was seen, as this information can be updated by other users. Medical History custodial use of drug Chronic constipation Cyclical pelvic pain RLQ > LLQ Endometriosis Surgical History H/O cystostomy History of vaginal hysterectomy 2013 History of cholecystectomy Hx of wisdom tooth extraction History of surgery on arm History of endometrial ablation Hx of dilation and curettage Family History Other Diabetes Hypertension Social History Smoking Status: Current every day smoker tobacco type: cigarettes packs per day: 1 second hand exposure: Yes alcohol intake: never substance use type: marijuana current occupational status: employed Travel in the last 8 weeks?: None household members: spouse housing: house 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 caffeine: Yes Have you lived/traveled outside [place] in past 30 days?: No Contact w/someone who lives/traveled outside US past 30 days?: No Exposure to someone with infectious disease in past 14 days?: No Do you have a fever (greater than 100.4 F or 38 C)?: No Have you tested positive for COVID-19?: No Exposed to someone with COVID-19 in past 14 days?: No Do you have a sore throat?: No Do you have a cough?: No Do you have any weakness?: No Do you have any diarrhea?: No Are you experiencing any unusual bleeding?: No Do you have any muscle aches/pain?: Yes Do you have any abdominal pain?: No Are you experiencing loss of taste or smell?: No Other Medical History Have you received the Flu Vaccine for this season: Yes Have you received the Pneumonia Vaccine: No ROS Obtained: Yes All systems reviewed & no additional complaints except as documented Physical Exam General General appearance: alert and in no apparent distress Head Head exam: atraumatic and normocephalic Eye Eye exam: Present PERRL and EOMI ENT ENT exam: Present mucous membranes moist Neck Neck exam: Present normal inspection Chest Chest inspection: Present normal inspection and symmetric chest wall rise Respiratory Respiratory exam: Present normal lung sounds bilaterally; Absent respiratory distress Cardiovascular Cardiovascular exam: Present regular rate and normal rhythm Abdominal Exam Abdominal exam: Present soft; Absent tenderness Extremities Exam Extremities exam: Present normal inspection, full ROM and other (Negative empty can sign, good range of motion of the shoulder joint, no pain to palpation over the shoulder joint, otherwise neurovascular intact); Absent tenderness Back Exam Back exam: Present normal inspection, tenderness and paraspinal tenderness Comment: Very minimal paraspinal tenderness palpation to the right sided paraspinal musculature of the cervical spine, and trapezius region Neurological Exam Neurological exam: Present alert, oriented X3 and other (5 out of 5 strength in the bilateral lower and upper extremities, negative Li sign bilaterally, no gross sensation deficit) Psychiatric Psychiatric exam: Present normal affect Skin Skin exam: Present warm and dry Medical Decision Making Medical Records Medical records reviewed: Yes I reviewed the patient's medical records. Screening: Per USPSTF and CDC recommendations, given the prevalence of disease in our region, it is our hospital?s policy to screen for HIV and viral Hepatitis for all patients aged 18 and over and those with ongoing risk factors. [place] Inquiry Pt receiving controlled substance: No [place] was queried for this patient: No Vital Signs: 04/08/25 09:54 Temperature 98.2 F Temperature Source Oral Pulse Rate [Left Radial] 87 Respiratory Rate 17 Blood Pressure [Right Arm] 136/71 Blood Pressure Mean [Right Arm] 92 Blood Pressure Source [Right Arm] Automatic Cuff Blood Pressure Position [Right Arm] Sitting 02 Sat by Pulse Oximetry 98 Oxygen Delivery Method Room Air Orders (Tests/Meds): ED MEDICATIONS Discontinued Medications Generic Name Dose Route Start Last Admin Trade Name Freq PRN Reason Stop Dose Admin Hydrocodone Bitart/Acetaminophen 1 tab 04/08/25 10:41 Hydrocodone/Apap 5/325 Mg Tablet PO 04/08/25 10:42 ONCE ONE Lidocaine 1 each 04/08/25 10:41 Lidocaine 5% Transdermal Patch TD 04/08/25 10:42 ONCE ONE Medical Decision Narrative: 39-year-old female presents to the emergency department with right-sided neck pain and right-sided radiculopathy, differential diagnosis include but not limited to cervical radiculopathy, cervicalgia, degenerative disc disease of cervical spine, among others. I discussed this patient's case with the attending physician Dr. Garzon I saw and examined the patient, patient has 5 out of 5 strength in the bilateral lower and upper extremities, she is otherwise neurovascular/neurologically intact, negative Li sign bilateral I do believe this is some degree of cervical radiculopathy, as patient has no known injury and just to woke up , with the pain several days ago. Will treat the patient here with p.o. [place] 5 mg, as well as lidocaine patch, patient will need outpatient physical therapy and outpatient MRI slated by PCP, patient has no other acute signs or symptoms, she does have spinal stenosis/spondylosis of her lower lumbar spine, similar pathology going on in her cervical spine. Patient voiced understanding with current treatment plan/discharge plan. Strict ED return precautions were given. Patient will also be given referral to pain management if needed. I will also prescribe the patient a short course of methylprednisone Dosepak for the acute inflammatory phase. Critical Care Critical Care Time Critical Care Time: No
[2025-04-08] MEDS: LIDOCAINE 5% TRANSDERMAL PATCH 1 EACH TD (10:55)
[2025-04-08] MEDS: HYDROCODONE/APAP 5/325 MG TABLET 1 TAB PO (10:55)
[2025-04-08 10:58] VITALS: BP 135/78; PULSE 75; RESP 16; TEMP 36.8; O2SAT 99
== END 2025-04-08 11:02 | disposition home or self-care (01) ==
PROVIDERS: Emergency Provider Student in an Organized Health Care Education/Training Program; PCP Physician Assistant
DX: M54.12 Radiculopathy, cervical region (principal)
CPT/HCPCS: 99282; 99283

== ENCOUNTER 2025-06-23 11:27 | Outpatient (CLI) | payer OTHER, SELFPAY ==
--- NOTE | 2025-06-23 11:36 | XR_ITS ---
PROCEDURE INFORMATION: Exam: XR Cervical Spine Exam date and time: 06/23/2025 11:38 AM Age: 39 years old Clinical indication: Neck pain that radiates down arms TECHNIQUE: Imaging protocol: Radiologic exam of the cervical spine. Views: 4 or 5 views. Total images: 5 COMPARISON: CR XR CHEST 2V 06/14/2024 3:04 PM FINDINGS: Bones/joints: Disc space narrowing noted C4-C5, C5-C6 and C6-C7. No evidence of acute fracture. Soft tissues: Prevertebral soft tissues are within normal limits. Other findings: Reversal of the normal cervical curvature. IMPRESSION: 1. Reversal of the normal cervical curvature. 2. Disc space narrowing noted C4-C5, C5-C6 and C6-C7. 3. No evidence of acute fracture.
== END 2025-06-23 23:59 | disposition home or self-care (01) ==
LOC: RAD 11:30
PROVIDERS: PCP Physician Assistant; Visit Provider Physician Assistant
DX: M43.8X2 Other specified deforming dorsopathies, cervical region (principal); M50.121 Cervical disc disorder at C4-C5 level with radiculopathy; M50.122 Cervical disc disorder at C5-C6 level with radiculopathy; M50.123 Cervical disc disorder at C6-C7 level with radiculopathy
CPT/HCPCS: 72050

== ENCOUNTER 2025-06-23 11:46 | Emergency (ER) | payer OTHER, SELFPAY ==
--- NOTE | 2025-06-23 11:53 | ED_ITS ---
<Statement entered by Abhinav Garzon MD - 06/23/25 15:42> I was consulted by the LATRELL, and we discussed the complexity of the problems being addressed. I approved the treatment and management plan for this patient's care in the emergency department, thus performing a substantive portion of the medical decision making. Abhinav Garzon MD, JOAO, FACEP Discharge Plan Disposition Patient Disposition: Home, Self-Care Condition: Good Prescriptions Prescriptions: New methylprednisolone [Medrol (Librado)] 4 mg tablets,dose pack 4 mg PO DAILY Qty: 21 0RF No Action nitrofurantoin monohyd/m-cryst 100 mg capsule 100 mg PO Q12H 7 Days Qty: 14 0RF Rx Instructions: must administer with a meal/food pregabalin [Lyrica] 50 mg capsule 50 mg PO BID Qty: 60 0RF sertraline 50 mg tablet See Rx Instructions .ROUTE .COMPLEX Qty: 90 0RF Dose Instruction: TAKE ONE TABLET BY MOUTH ONCE A DAY Rx Instructions: TAKE ONE TABLET BY MOUTH ONCE A DAY cyclobenzaprine 5 mg tablet 5 mg PO TID PRN (Reason: muscle spasm) Qty: 30 0RF tamsulosin [Flomax] 0.4 mg capsule 0.4 mg PO DAILY Qty: 20 0RF methylprednisolone [Medrol (Librado)] 4 mg tablets,dose pack 4 mg PO DAILY Qty: 21 0RF Referrals Follow up/Referrals: Elias Servin MD [Nurse Practitioner, Pain Management] - See instructions Kisha Wilde PA [Primary Care Provider, Medical] - See instructions Activity Restrictions/Add. Instructions Additional Instructions/Restrictions: Please return to the emergency department with any worsening signs or symptoms. Please take your medication as currently prescribed. Will need evaluation/referral for physical therapy. Will need MRI of the cervical spine, please call pain management office above for initial consultation to consider a cervical spinal injection for your pain. Clinical Impressions Clinical Impression: Cervical radiculopathy Instructions Patient Instructions: DI for Cervical Radiculopathy Print Language Print Language: Afghan Discharge ED Provider: Abhinav Garzon General Adult HPI General Chief complaint: PAIN Stated complaint: Pain in neck shooting through R arm, numb 3 finger Time Seen by Provider: 06/23/25 11:53 Mode of Arrival: Ambulatory Source of Information: Patient and Medical Record Limitations: No Limitations History of Present Illness HPI narrative: 39-year-old female presents to the emergency department with right sided neck pain and radicular type symptomatology that is posterior lateral with the first 3 digits of her fingers affected with numbness and tingling at times, patient is been getting worked up by her PCP had cervical x-rays performed today, is slated to have MRI of the cervical spine upcoming, she has not yet had any physical therapy, she is currently on Lyrica as well as lidocaine patch and Flexeril with some relief to her symptomatology. She denies any worsening injury or history, patient has any fever chills chest pain shortness of breath nausea vomiting constipation diarrhea no saddle anesthesia no urinary bladder or bowel dysfunction, no upper or lower extremity weakness. Other past medical history is consistent with current everyday smoker, denies any alcohol or drug use with the exception of occasional marijuana/THC use, MDD/CARLOS, endometriosis, migraines. Initial triage vitals are unremarkable. Please note that above description of symptoms, in this electronic medical record under categorization of recalled from ER triage doctor by RN are reflective of an initial nursing assessment, however, is not reflective of my full history and physical exam that was personally taken and clarified. Consequentially, this preceding description of symptoms, which may include the patient's categorized chief complaint in the EMR, do not reflect my personal cli nical impression, and the ultimate description of history of present illness and patient stated complaints should be deferred to this section of the note. Unless stated otherwise or congruent with this section of the note, additional signs, symptoms, or incongruence should be interpreted as inaccurate with my clinical impression. Onset (ago): month(s) Related Data Previous Rx's ?Medication ?Instructions ?Recorded cyclobenzaprine 5 mg tablet 5 mg PO TID PRN muscle spa sm #30 03/10/24 tabs pregabalin 50 mg capsule (Lyrica) 50 mg PO BID #60 cap s 04/23/24 sertraline 50 mg tablet See Rx Instructions .Route 0 10/10/24 .COMPLEX #90 tabs tamsulosin 0.4 mg capsule (Flomax) 0.4 mg PO DAILY #20 caps 11/11/24 nitrofurantoin 100 mg PO Q12H 7 days #14 ca ps 02/15/25 monohydrate/macrocrystals 100 mg capsule methylprednisolone 4 mg tablets in 4 mg PO DAILY #21 t abs 04/08/25 a dose pack (Medrol (Librado)) methylprednisolone 4 mg tablets in 4 mg PO DAILY #21 t abs 06/23/25 a dose pack (Medrol (Librado)) Allergies Allergy/AdvReac Type Severity Reaction Status Date / Time ibuprofen (IBUPROFEN) Allergy Unknown STOMACH Verified 02/15/25 15:38 UPSET naproxen (NAPROXEN) Allergy Unknown STOMACH Verified 02/15/25 15:38 UPSET adhesive Allergy Unknown Verified 02/15/25 15:38 [facility] Disclaimer: The information contained in this section may have been updated after the patient was seen, as this information can be updated by other users. 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 Chronic constipation Cyclical pelvic pain RLQ > LLQ Endometriosis Surgical History H/O cystostomy History of vaginal hysterectomy 2013 History of cholecystectomy Hx of wisdom tooth extraction History of surgery on arm History of endometrial ablation Hx of dilation and curettage Family History Other Diabetes Hypertension Social History Smoking Status: Current every day smoker tobacco type: cigarettes packs per day: 1 second hand exposure: Yes alcohol intake: never substance use type: marijuana current occupational status: employed Travel in the last 8 weeks?: None household members: spouse housing: house 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 caffeine: Yes Other Medical History Have you received the Flu Vaccine for this season: Yes Have you received the Pneumonia Vaccine: No ROS Obtained: Yes All systems reviewed & no additional complaints except as documented Physical Exam General General appearance: alert and in no apparent distress Head Head exam: atraumatic and normocephalic Eye Eye exam: Present PERRL and EOMI ENT ENT exam: Present mucous membranes moist Neck Neck exam: Present normal inspection Chest Chest inspection: Present normal inspection and symmetric chest wall rise Respiratory Respiratory exam: Present normal lung sounds bilaterally; Absent respiratory distress Cardiovascular Cardiovascular exam: Present regular rate and normal rhythm Abdominal Exam Abdominal exam: Present soft; Absent tenderness Extremities Exam Extremities exam: Present normal inspection, full ROM and other (Negative Tinel sign and Phalen sign bilaterally, good strength, otherwise neurovasc intact, no obvious acute traumatic dislocation or open fracture.) Back Exam Back exam: Present normal inspection and full ROM; Absent paraspinal tenderness or vertebral tenderness Neurological Exam Neurological exam: Present alert, oriented X3 and other (5 out of 5 strength in the bilateral upper extremities, no gross sensation deficit, negative Li sign bilaterally, good finger opposition) Psychiatric Psychiatric exam: Present normal affect Skin Skin exam: Present warm and dry Medical Decision Making Medical Records Medical records reviewed: Yes I reviewed the patient's medical records. Screening: Per USPSTF and CDC recommendations, given the prevalence of disease in our region, it is our hospital?s policy to screen for HIV and viral Hepatitis for all patients aged 18 and over and those with ongoing risk factors. [place] Inquiry Pt receiving controlled substance: Yes [place] was queried for this patient: No Reason not queried -: Emergent pt cond-no time Risks and benefits of using a controlled substance: were discussed with pt by me Vital Signs: 06/23/25 11:59 Temperature 98.3 F Temperature Source Oral Pulse Rate [Left Radial] 93 H Respiratory Rate 19 Blood Pressure [Right Arm] 143/96 H Blood Pressure Mean [Right Arm] 111 02 Sat by Pulse Oximetry 98 Oxygen Delivery Method Room Air Orders (Tests/Meds): ED MEDICATIONS Discontinued Medications Generic Name Dose Route Start Last Admin Trade Name Castilloq PRN Reason Stop Dose Admin Hydrocodone Bitart/Acetaminophen 1 tab 06/23/25 12:02 06/23/25 12:08 Hydrocodone/Apap 5/325 Mg Tablet PO 06/23/25 12:03 1 tab ONCE ONE Administration Medical Decision Narrative: 39-year-old female presents the emergency department with right sided neck pain and right sided cervical radiculopathy type symptomatology has been seen in the ED previously for this despite ongoing for several months, differential diagnose include but not limited to cervical radiculopathy, cervicalgia, degenerative disc disease, foraminal stenosis, herniated nucleus pulposus among others I discussed this patient's case with the attending Dr. Garzon I reviewed and independently interpreted the patient's plain film x-rays were obtained today, there appears to be no acute osseous abnormality, patient has had the symptoms ongoing for quite some time, her symptoms have stayed consistent, with cervical radiculopathy. Patient is slated to have ongoing MRI, she is currently on Lyrica, and muscle relaxers with some relief to her symptomatology. Patient has no other red flag signs or symptoms, I do not think she will benefit from cervical spine CT, she has already had plain film imaging today, I did not not have concern for any acute osseous traumatic injury. Ultimately need MRI, physical therapy, pain management referral, will treat the patient's acute pain here today with 5 mg p.o. [place] for symptomatic relief. Based on patient's radicular pattern, could be a C5-C6/C6-C7 disc bulge/pathology based on patient's. Patient was given strict ED return precautions. I will send the patient a short course of Medrol Dosepak for the acute inflammatory phase. Patient voiced understanding and agreement with the current treatment plan/discharge plan. Critical Care Critical Care Time Critical Care Time: No
[2025-06-23 11:59] VITALS: BP 143/96; PULSE 93; RESP 19; TEMP 36.8; O2SAT 98
[2025-06-23 12:01] VITALS: BP 125/80; PULSE 86; O2SAT 98
[2025-06-23] MEDS: HYDROCODONE/APAP 5/325 MG TABLET 1 TAB PO (12:08)
[2025-06-23 12:10] VITALS: BP 119/79; PULSE 79; O2SAT 97
[2025-06-23 12:26] VITALS: BP 109/75; PULSE 71; RESP 18; TEMP 36.8; O2SAT 98
--- NOTE | 2025-06-23 12:56 | PC.NURSE ---
The pharmacist from [facility] called to clarify directions on the steroid dose pack. I spoke with and passed it along to the pharmacist.
== END 2025-06-23 12:27 | disposition home or self-care (01) ==
LOC: ER 12:20
PROVIDERS: Emergency Provider Student in an Organized Health Care Education/Training Program; PCP Physician Assistant
DX: M54.12 Radiculopathy, cervical region (principal)
CPT/HCPCS: 99283

== ENCOUNTER 2025-08-06 17:00 | Outpatient (RCR) | payer OTHER, SELFPAY | END 2025-08-06 23:59 | disposition home or self-care (01) | LOC: PT 17:00 | PROVIDERS: PCP Physician Assistant; Visit Provider Physician Assistant | DX: M54.12 Radiculopathy, cervical region (principal) | CPT/HCPCS: 97110; 97162 ==